=== PATIENT | male | born 1935 | race Caucasian/White ===

== ENCOUNTER 2023-07-01 13:48 | Outpatient (REF) | payer MEDICARE, SELFPAY ==
[2023-07-01 16:33] LABS: Hematocrit 33.4 % (42.0-52.0); Hemoglobin 10.3 g/dl (14.0-18.0); Mean Corpuscular HGB Conc 30.8 g/dl (31.0-36.0); Mean Corpuscular Hemoglobin 29.5 pg (27.0-33.0); Mean Corpuscular Volume 95.7 fL (80.0-98.0); Platelet Count 185 X10*3/uL (160-400); Red Blood Count 3.49 X10*6/uL (4.60-5.80); White Blood Count 6.8 X10*3/uL (4.8-10.8)
[2023-07-01 17:04] LABS: Anion Gap 12 (12-20); Blood Urea Nitrogen 54 mg/dL (9-16); Calcium 9.2 mg/dL (8.4-10.2); Carbon Dioxide 25 mmol/L (22-29); Chloride 108 mmol/L (96-108); Estimated Glomerular Filt Rate 30; Sodium 140 mmol/L (135-145)
== END 2023-07-01 13:49 | disposition home or self-care (01) ==
LOC: HO.HMGCLDS 13:48
PROVIDERS: Visit Provider Internal Medicine Hypertension Specialist
DX: N18.9 Chronic kidney disease, unspecified (principal)
CPT/HCPCS: 36415; 80051; 82310; 82565; 84520; 85027

== ENCOUNTER 2023-07-07 10:43 | Outpatient (AMB) | payer MEDICARE, SELFPAY ==
--- NOTE | 2023-07-07 10:49 | HO.NEPHOV_ITS ---
HPI HPI Comments History of Present Illness Details Edwardo is a pleasant elderly man with a history of longstanding diabetes mellitus hypertension with chronic disease. [facility] He has CKD with a baseline creatinine of around 2.2 mg/dL. He was accompanied by his family today. No specific complaints. He continues have leg edema. No shortness of breath. He is on low dose of torsemide Vital Signs 07/07/23 10:59 Height 5 ft 10 in Weight 250 lb BMI 35.9 BP 130/68 Blood Pressure Location Rt brachial Position Sitting Pulse 68 Pulse Source Pulse Oximeter Pulse Oximetry (%) 98 Physical Exam Const General: comfortable Nutritional Appearance: well nourished Orientation/consciousness: patient oriented x3 HEENT Head: No normal to inspection Mouth: moist mucous membranes Neck Neck: Yes supple and Yes no JVD Resp Auscultation: clear to auscultation bilaterally, no rales and rub present Cardio Jugular venous distension: no JVD Palpation: no palpable S3 and no palpable S4 Heart sounds: no rubs GI Palpation (GI): Soft to palpation and nontender Percussion: No Fluid wave present General: Yes no CVA tenderness Back/Spine/Pelvis Back: no CVA tenderness Skin General skin exam: no rashes or lesions noted Neuro General: patient oriented x3 Extrem General: No clubbing and Yes edema Results Reviewed Results Reviewed: Labs labs from [facility] was reviewed. Creatinine 2.1 in 2021. As of July 01 creatinine is 2.2. Hemoglobin 10.4. Assessment & Plan Assessment & Plan (1) CKD (chronic kidney disease) stage 4, GFR 15-29 ml/min: Code(s): N18.4 - Chronic kidney disease, stage 4 (severe) Plan: Advanced CKD. No signs and uremia. Goal is to slow the progression of kidney disease. Continue to avoid nephrotoxic agents including NSAIDs. He will benefit from SGLT 2 inhibitor (2) Diabetes mellitus with chronic kidney disease: Code(s): E11.22 - Type 2 diabetes mellitus with diabetic chronic kidney disease Plan: Goals maintain hemoglobin A1c less than 7%. He will benefit from weight loss. (3) Anemia due to chronic kidney disease: Code(s): N18.9 - Chronic kidney disease, unspecified; D63.1 - Anemia in chronic kidney disease Plan: No indication for Epogen yet. Will check iron stores before next visit and reassess further need for Epogen. (4) HTN (hypertension): Code(s): I10 - Essential (primary) hypertension Plan: Blood pressures are acceptable. Needs to stay on low-sodium diet. No changes were made to the antihypertensive medication today. Goal is met and blood pressures in 130/80 and Avoid hypotension. Orders: Orders IRON PROFILE 5 Months D63.1 - Anemia in chronic kidney disease, E11.22 - Type 2 diabetes mellitus with diabetic chronic kidney disease, N18.4 - Chronic kidney disease, stage 4 (severe), N18.9 - Chronic kidney disease, unspecified PTHI 5 Months D63.1 - Anemia in chronic kidney disease, E11.22 - Type 2 diabetes mellitus with diabetic chronic kidney disease, N18.4 - Chronic kidney disease, stage 4 (severe), N18.9 - Chronic kidney disease, unspecified Ferritin 5 Months D63.1 - Anemia in chronic kidney disease, E11.22 - Type 2 diabetes mellitus with diabetic chronic kidney disease, N18.4 - Chronic kidney disease, stage 4 (severe), N18.9 - Chronic kidney disease, unspecified Electrolytes 5 Months D63.1 - Anemia in chronic kidney disease, E11.22 - Type 2 diabetes mellitus with diabetic chronic kidney disease, N18.4 - Chronic kidney disease, stage 4 (severe), N18.9 - Chronic kidney disease, unspecified Blood Urea Nitrogen 5 Months D63.1 - Anemia in chronic kidney disease, E11.22 - Type 2 diabetes mellitus with diabetic chronic kidney disease, N18.4 - Chronic kidney disease, stage 4 (severe), N18.9 - Chronic kidney disease, unspecified Creatinine 5 Months D63.1 - Anemia in chronic kidney disease, E11.22 - Type 2 diabetes mellitus with diabetic chronic kidney disease, N18.4 - Chronic kidney disease, stage 4 (severe), N18.9 - Chronic kidney disease, unspecified Calcium 5 Months D63.1 - Anemia in chronic kidney disease, E11.22 - Type 2 diabetes mellitus with diabetic chronic kidney disease, N18.4 - Chronic kidney disease, stage 4 (severe), N18.9 - Chronic kidney disease, unspecified Complete Blood Count no Diff 5 Months D63.1 - Anemia in chronic kidney disease, E11.22 - Type 2 diabetes mellitus with diabetic chronic kidney disease, N18.4 - Chronic kidney disease, stage 4 (severe), N18.9 - Chronic kidney disease, unspecified Coding Level of Care Code Est Pt Level 4 (28950) Diagnoses CKD (chronic kidney disease) stage 4, GFR 15-29 ml/min N18.4 Diabetes mellitus with chronic kidney disease E11.22 Anemia due to chronic kidney disease N18.9; D63.1 HTN (hypertension) I10
[2023-07-07 10:59] VITALS: BP 130/68; PULSE 68; O2SAT 98; BMI 35.9
== END 2023-07-07 11:23 | disposition home or self-care (01) ==
PROVIDERS: Visit Provider Internal Medicine Hypertension Specialist
DX: N18.4 Chronic kidney disease, stage 4 (severe) (principal); E11.22 Type 2 diabetes mellitus with diabetic chronic kidney disease; N18.9 Chronic kidney disease, unspecified; D63.1 Anemia in chronic kidney disease; I12.9 Hypertensive chronic kidney disease with stage 1 through stage 4 chronic kidney disease, or unspecified chronic kidney disease
CPT/HCPCS: 99214

== ENCOUNTER → 2023-07-07 10:43 | Outpatient (BNVA) | payer MEDICARE, SELFPAY | PROVIDERS: Visit Provider Internal Medicine Hypertension Specialist | DX: E11.22 Type 2 diabetes mellitus with diabetic chronic kidney disease (principal); I12.9 Hypertensive chronic kidney disease with stage 1 through stage 4 chronic kidney disease, or unspecified chronic kidney disease; D63.1 Anemia in chronic kidney disease; N18.4 Chronic kidney disease, stage 4 (severe) | CPT/HCPCS: 99212 ==

== ENCOUNTER 2023-11-30 11:01 | Outpatient (REF) | payer MEDICARE, SELFPAY ==
[2023-11-30 12:24] LABS: Hematocrit 31.7 % (42.0-52.0); Hemoglobin 10.2 g/dl (14.0-18.0); Mean Corpuscular HGB Conc 32.2 g/dl (31.0-36.0); Mean Corpuscular Hemoglobin 30.1 pg (27.0-33.0); Mean Corpuscular Volume 93.5 fL (80.0-98.0); Mean Platelet Volume 10.9 fL (9.4-12.4); Platelet Count 155 X10*3/uL (160-400); Red Blood Count 3.39 X10*6/uL (4.60-5.80); White Blood Count 7.1 X10*3/uL (4.8-10.8)
[2023-11-30 14:38] LABS: Anion Gap 15 (12-20); Blood Urea Nitrogen 72 mg/dL (9-16); Carbon Dioxide 23 mmol/L (22-29); Chloride 105 mmol/L (96-108); Estimated Glomerular Filt Rate 23; Iron 57 mcg/dL (45-160); Percent Iron Saturation 19 % (15-50); Potassium 5.1 mmol/L (3.3-5.1); Sodium 138 mmol/L (135-145); Total Iron Binding Capacity 295 mcg/dL (228-428); Unsaturated Iron Binding 238 ug/dL
[2023-11-30 14:47] LABS: Ferritin 97 ng/mL (20-250)
== END 2023-11-30 11:02 | disposition home or self-care (01) ==
LOC: HO.HKASLDS 11:01
PROVIDERS: Visit Provider Internal Medicine Hypertension Specialist
DX: E11.22 Type 2 diabetes mellitus with diabetic chronic kidney disease (principal); N18.4 Chronic kidney disease, stage 4 (severe); N18.9 Chronic kidney disease, unspecified; D63.1 Anemia in chronic kidney disease
CPT/HCPCS: 36415; 80051; 82310; 82565; 82728; 83540; 84520; 85027

== ENCOUNTER 2023-12-08 10:42 | Outpatient (AMB) | payer MEDICARE, SELFPAY ==
[2023-12-08 10:48] VITALS: BP 142/62; PULSE 77; O2SAT 93; BMI 34.6
--- NOTE | 2023-12-08 10:48 | HO.NEPHOV_ITS ---
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 [facility] He has CKD with a baseline creatinine of around 2.2 mg/dL. He was accompanied by his family today. No specific complaints. He continues have leg edema. No shortness of breath. 12/08/23 Doing better Torsemide was increased to 20 mg by cardiology Creatinine is up to 2.6 PFSH Social History (Updated 12/08/23 @ 10:52 by Lucy Vuong) Patient Tobacco Use Status: Former Tobacco user Use of substances other than those prescribed or required for medical reasons: No Physical Exam Vital Signs: Last Vital Signs Pulse 77 12/08/23 10:48 BP 142/62 H 12/08/23 10:48 Pulse Ox 93 12/08/23 10:48 Oxygen Delivery Method Room Air 12/08/23 10:48 BMI result Body Mass Index 34.6 Const General: comfortable Nutritional Appearance: well nourished Orientation/consciousness: patient oriented x3 HEENT Head: No normal to inspection Mouth: moist mucous membranes Neck Neck: Yes supple and Yes no JVD Resp Auscultation: clear to auscultation bilaterally, no rales and rub present Cardio Jugular venous distension: no JVD Palpation: no palpable S3 and no palpable S4 Heart sounds: no rubs GI Palpation (GI): Soft to palpation and nontender Percussion: No Fluid wave present General: Yes no CVA tenderness Back/Spine/Pelvis Back: no CVA tenderness Skin General skin exam: no rashes or lesions noted Neuro General: patient oriented x3 Extrem General: No clubbing and Yes edema Results Reviewed Nephrology Results: Hgb 10.2 g/dl (14.0-18.0) L 11/30/23 WBC 7.1 X10*3/uL (4.8-10.8) 11/30/23 Plt Count 155 X10*3/uL (160-400) L 11/30/23 Sodium 138 mmol/L (135-145) 11/30/23 Potassium 5.1 mmol/L (3.3-5.1) 11/30/23 Chloride 105 mmol/L (96-108) 11/30/23 Carbon Dioxide 23 mmol/L (22-29) 11/30/23 BUN 72 mg/dL (9-16) H 11/30/23 Creatinine 2.69 mg/dL (0.5-1.4) H 11/30/23 Calcium 9.0 mg/dL (8.4-10.2) 11/30/23 Assessment & Plan Assessment & Plan (1) CKD (chronic kidney disease) stage 4, GFR 15-29 ml/min: Code(s): N18.4 - Chronic kidney disease, stage 4 (severe) Category: Medical Plan: Advanced CKD. No signs and uremia. Goal is to slow the progression of kidney disease. Continue to avoid nephrotoxic agents including NSAIDs. He will benefit from SGLT 2 inhibitor Superimposed ZHEN due tp high dose of diuretic Clinically appears euvolemic would decrease Torsemide from 20 mg to 10 mg daily (2) Diabetes mellitus with chronic kidney disease: Code(s): E11.22 - Type 2 diabetes mellitus with diabetic chronic kidney disease Category: Medical Plan: Goals maintain hemoglobin A1c less than 7%. He will benefit from weight loss. (3) Anemia due to chronic kidney disease: Code(s): N18.9 - Chronic kidney disease, unspecified; D63.1 - Anemia in chronic kidney disease Category: Medical Plan: No indication for Epogen yet. Will check iron stores before next visit and reassess further need for Epogen. (4) HTN (hypertension): Code(s): I10 - Essential (primary) hypertension Category: Medical Plan: Blood pressures are acceptable. Needs to stay on low-sodium diet. No changes were made to the antihypertensive medication today. Goal is met and blood pressures in 130/80 and Avoid hypotension. Orders: Orders Basic Metabolic Panel 2 Months D63.1 - Anemia in chronic kidney disease, N18.4 - Chronic kidney disease, stage 4 (severe), N18.9 - Chronic kidney disease, unspecified Complete Blood Count Auto Diff 2 Months D63.1 - Anemia in chronic kidney disease, N18.30 - Chronic kidney disease, stage 3 unspecified, N18.4 - Chronic kidney disease, stage 4 (severe), N18.9 - Chronic kidney disease, unspecified Coding Level of Care Code Est Pt Level 4 (55336) Diagnoses CKD (chronic kidney disease) stage 4, GFR 15-29 ml/min N18.4 Diabetes mellitus with chronic kidney disease E11.22 Anemia due to chronic kidney disease N18.9; D63.1 HTN (hypertension) I10
== END 2023-12-08 11:13 | disposition home or self-care (01) ==
PROVIDERS: Visit Provider Internal Medicine Hypertension Specialist
DX: E11.22 Type 2 diabetes mellitus with diabetic chronic kidney disease (principal); N18.4 Chronic kidney disease, stage 4 (severe); N18.9 Chronic kidney disease, unspecified; D63.1 Anemia in chronic kidney disease; I12.9 Hypertensive chronic kidney disease with stage 1 through stage 4 chronic kidney disease, or unspecified chronic kidney disease
CPT/HCPCS: 99214

== ENCOUNTER → 2023-12-08 10:42 | Outpatient (BNVA) | payer MEDICARE, SELFPAY | PROVIDERS: Visit Provider Internal Medicine Hypertension Specialist | DX: E11.22 Type 2 diabetes mellitus with diabetic chronic kidney disease (principal); I12.9 Hypertensive chronic kidney disease with stage 1 through stage 4 chronic kidney disease, or unspecified chronic kidney disease; N18.4 Chronic kidney disease, stage 4 (severe); D63.1 Anemia in chronic kidney disease | CPT/HCPCS: 99212 ==

== ENCOUNTER 2024-01-27 11:11 | Outpatient (REF) | payer MEDICARE, SELFPAY ==
[2024-01-27 14:28] LABS: MANUAL DIFF FLAG NO
[2024-01-27 14:53] LABS: Anion Gap 10 (12-20); Blood Urea Nitrogen 52 mg/dL (9-16); Carbon Dioxide 26 mmol/L (22-29); Chloride 105 mmol/L (96-108); Estimated Glomerular Filt Rate 27; Glucose Random 195 mg/dL (60-115); Potassium 5.1 mmol/L (3.3-5.1); Sodium 136 mmol/L (135-145)
[2024-01-27 14:57] LABS: Basophils Percent Auto 0.5 % (0-2); Eosinophils Absolute Auto 0.3 X10*3/uL (0.0-0.4); Eosinophils Percent Auto 3.8 % (0-4); Hematocrit 29.9 % (42.0-52.0); Hemoglobin 9.5 g/dl (14.0-18.0); Imm Gran Abs Auto 0.03 X10*3/uL (0.00-0.03); Imm Gran Pct Auto 0.5 % (0.0-0.4); Lymphocytes Absolute Auto 0.8 X10*3/uL (1.2-4.9); Lymphocytes Percent Auto 11.6 % (20-40); Mean Corpuscular HGB Conc 31.8 g/dl (31.0-36.0); Mean Corpuscular Hemoglobin 30.1 pg (27.0-33.0); Mean Corpuscular Volume 94.6 fL (80.0-98.0); Monocytes Absolute Auto 0.5 X10*3/uL (0.1-1.2); Monocytes Percent Auto 7.6 % (2-11); Platelet Count 158 X10*3/uL (160-400); Red Blood Count 3.16 X10*6/uL (4.60-5.80); Red Cell Distribution Width 14.1 % (11.0-16.0); White Blood Count 6.6 X10*3/uL (4.8-10.8)
== END 2024-01-27 11:12 | disposition home or self-care (01) ==
LOC: HO.HKASLDS 11:11
PROVIDERS: Visit Provider Internal Medicine Hypertension Specialist
DX: N18.30 Chronic kidney disease, stage 3 unspecified (principal); D63.1 Anemia in chronic kidney disease; N18.4 Chronic kidney disease, stage 4 (severe)
CPT/HCPCS: 36415; 80048; 85025

== ENCOUNTER 2024-01-27 11:20 | Outpatient (REF) | payer MEDICARE, SELFPAY | END 2024-01-27 11:21 | disposition home or self-care (01) | LOC: HO.HKASLDS 11:20 | PROVIDERS: Visit Provider Internal Medicine Hypertension Specialist | DX: Z13.89 Encounter for screening for other disorder (principal) ==

== ENCOUNTER 2024-02-02 10:54 | Outpatient (AMB) | payer MEDICARE, SELFPAY ==
--- NOTE | 2024-02-02 11:01 | HO.NEPHOV_ITS ---
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 [facility] He has CKD with a baseline creatinine of around 2.2 mg/dL. He was accompanied by his family today. No specific complaints. He continues have leg edema. No shortness of breath. 12/08/23 Doing better;Torsemide was increased to 20 mg by cardiology;Creatinine is up to 2.6 02/02/2024. Overall doing well today. After lowering the torsemide to 10 mg serum creatinine is decreased to 2.2. He has lost about 1 lb since last visit. [facility] Social History Patient Tobacco Use Status: Former Tobacco user Physical Exam Vital Signs: Last Vital Signs Pulse 93 02/02/24 11:02 BP 144/64 H 02/02/24 11:02 Pulse Ox 94 02/02/24 11:02 Oxygen Delivery Method Room Air 02/02/24 11:02 BMI result Body Mass Index 34.4 Const General: comfortable Nutritional Appearance: well nourished Orientation/consciousness: patient oriented x3 HEENT Head: No normal to inspection Mouth: moist mucous membranes Neck Neck: Yes supple and Yes no JVD Resp Auscultation: clear to auscultation bilaterally and no rales Cardio Jugular venous distension: no JVD Palpation: no palpable S3 and no palpable S4 Heart sounds: no rubs GI Palpation (GI): Soft to palpation and nontender Percussion: No Fluid wave present General: Yes no CVA tenderness Back/Spine/Pelvis Back: no CVA tenderness Skin General skin exam: no rashes or lesions noted Neuro General: patient oriented x3 Extrem General: No clubbing and Yes edema Results Reviewed Nephrology Results: Hgb 9.5 g/dl (14.0-18.0) L 01/27/24 WBC 6.6 X10*3/uL (4.8-10.8) 01/27/24 Plt Count 158 X10*3/uL (160-400) L 01/27/24 Sodium 136 mmol/L (135-145) 01/27/24 Potassium 5.1 mmol/L (3.3-5.1) 01/27/24 Chloride 105 mmol/L (96-108) 01/27/24 Carbon Dioxide 26 mmol/L (22-29) 01/27/24 BUN 52 mg/dL (9-16) H 01/27/24 Creatinine 2.27 mg/dL (0.5-1.4) H 01/27/24 Calcium 9.0 mg/dL (8.4-10.2) 01/27/24 Assessment & Plan Assessment & Plan (1) CKD (chronic kidney disease) stage 4, GFR 15-29 ml/min: Code(s): N18.4 - Chronic kidney disease, stage 4 (severe) Category: Medical Plan: . No signs and uremia. Goal is to slow the progression of kidney disease. Continue to avoid nephrotoxic agents including NSAIDs. He will benefit from SGLT 2 inhibitor Superimposed ZHEN due to high dose of diuretics Resolved after lowering Torsemide Creatinine is down to 2.2 Clinically appears euvolemic Keep Torsemide 10 mg daily (2) Diabetes mellitus with chronic kidney disease: Code(s): E11.22 - Type 2 diabetes mellitus with diabetic chronic kidney disease Category: Medical Plan: . Goals maintain hemoglobin A1c less than 7%. He will benefit from weight loss. (3) Anemia due to chronic kidney disease: Code(s): N18.9 - Chronic kidney disease, unspecified; D63.1 - Anemia in chronic kidney disease Category: Medical Plan: No indication for Epogen yet. Iron /TIBC are acceptable (4) HTN (hypertension): Code(s): I10 - Essential (primary) hypertension Category: Medical Plan: Blood pressures are acceptable. Needs to stay on low-sodium diet. No changes were made to the antihypertensive medication today. Goal is met and blood pressures in 130/80 Avoid hypotension. Orders: Orders Basic Metabolic Panel 3 Months D63.1 - Anemia in chronic kidney disease, N18.4 - Chronic kidney disease, stage 4 (severe), N18.9 - Chronic kidney disease, unspecified Complete Blood Count no Diff 3 Months D63.1 - Anemia in chronic kidney disease, N18.4 - Chronic kidney disease, stage 4 (severe), N18.9 - Chronic kidney disease, unspecified Scribe Plan - Not visible on output: Fax to Dr Sheryl Judge - [phone] Coding Level of Care Code Est Pt Level 4 (56011) Diagnoses CKD (chronic kidney disease) stage 4, GFR 15-29 ml/min N18.4 Diabetes mellitus with chronic kidney disease E11.22 Anemia due to chronic kidney disease N18.9; D63.1 HTN (hypertension) I10
[2024-02-02 11:02] VITALS: BP 144/64; PULSE 93; O2SAT 94; BMI 34.4
== END 2024-02-02 11:22 | disposition home or self-care (01) ==
PROVIDERS: Visit Provider Internal Medicine Hypertension Specialist
DX: I12.9 Hypertensive chronic kidney disease with stage 1 through stage 4 chronic kidney disease, or unspecified chronic kidney disease (principal); E11.22 Type 2 diabetes mellitus with diabetic chronic kidney disease; N18.4 Chronic kidney disease, stage 4 (severe); N18.9 Chronic kidney disease, unspecified; D63.1 Anemia in chronic kidney disease
CPT/HCPCS: 99214

== ENCOUNTER → 2024-02-02 10:54 | Outpatient (BNVA) | payer MEDICARE, SELFPAY | PROVIDERS: Visit Provider Internal Medicine Hypertension Specialist | DX: E11.22 Type 2 diabetes mellitus with diabetic chronic kidney disease (principal); I12.9 Hypertensive chronic kidney disease with stage 1 through stage 4 chronic kidney disease, or unspecified chronic kidney disease; N18.4 Chronic kidney disease, stage 4 (severe); D63.1 Anemia in chronic kidney disease | CPT/HCPCS: 99212 ==

== ENCOUNTER 2024-04-27 11:08 | Outpatient (REF) | payer MEDICARE, SELFPAY ==
[2024-04-27 16:22] LABS: Hematocrit 29.5 % (42.0-52.0); Hemoglobin 9.6 g/dl (14.0-18.0); Mean Corpuscular HGB Conc 32.5 g/dl (31.0-36.0); Mean Corpuscular Hemoglobin 30.8 pg (27.0-33.0); Mean Corpuscular Volume 94.6 fL (80.0-98.0); Mean Platelet Volume 10.5 fL (9.4-12.4); Platelet Count 145 X10*3/uL (160-400); Red Blood Count 3.12 X10*6/uL (4.60-5.80); Red Cell Distribution Width 14.2 % (11.0-16.0)
[2024-04-27 16:30] LABS: Anion Gap 15 (12-20); Blood Urea Nitrogen 55 mg/dL (9-16); Calcium 9.2 mg/dL (8.4-10.2); Carbon Dioxide 24 mmol/L (22-29); Chloride 106 mmol/L (96-108); Estimated Glomerular Filt Rate 23; Glucose Random 151 mg/dL (60-115); Potassium 5.9 mmol/L (3.3-5.1); Sodium 139 mmol/L (135-145)
== END 2024-04-27 11:09 | disposition home or self-care (01) ==
LOC: HO.HKASLDS 11:08
PROVIDERS: Visit Provider Internal Medicine Hypertension Specialist
DX: N18.9 Chronic kidney disease, unspecified (principal); D63.1 Anemia in chronic kidney disease; N18.4 Chronic kidney disease, stage 4 (severe)
CPT/HCPCS: 36415; 80048; 85027

== ENCOUNTER 2024-05-10 11:00 | Outpatient (AMB) | payer MEDICARE, SELFPAY ==
[2024-05-10 11:09] VITALS: BP 140/60; PULSE 81; O2SAT 93; BMI 34.6
--- NOTE | 2024-05-10 11:09 | HO.NEPHOV ---
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 Required: No Accompanied by: Spouse Allergies No Known Allergies Allergy (Mild, Verified 05/10/24 11:13) Medication List - Last Reconciled 05/10/24 by Tyler Bautista MD albuterol sulfate 90 mcg/actuation 2 puffs inhalation Q6H PRN apixaban (Eliquis) 2.5 mg PO BID aspirin (Adult Low Dose Aspirin) 81 mg PO DAILY chromium picolinate 800 mcg PO DAILY diosmin complex no.1 (Vasculera) 1 tab PO DAILY fluticasone propion-salmeterol 100-50 mcg/dose (Wixela Inhub) 1 inh inhalation Q12H glipizide 5 mg PO DAILY lisinopril 20 mg PO ONCE multivitamin 1 tab PO DAILY simvastatin (Zocor) 40 mg PO DAILY tiotropium bromide 1.25 mcg/actuation (Spiriva Respimat) 2 puffs inhalation DAILY torsemide 10 mg PO DAILY vitamin B complex (B Complex-Vitamin B12 tablet) 1 tab PO DAILY HPI Comments Details: Edwardo is a pleasant elderly man with a history of longstanding diabetes mellitus hypertension with chronic disease. [facility] He has CKD with a baseline creatinine of around 2.2 mg/dL. He was accompanied by his family today. No specific complaints. He continues have leg edema. No shortness of breath. 12/08/23 Doing better;Torsemide was increased to 20 mg by cardiology;Creatinine is up to 2.6 02/02/2024. Overall doing well today. After lowering the torsemide to 10 mg serum creatinine is decreased to 2.2. He has lost about 1 lb since last visit. 05/10/24 Doing well. K and cr are up No urinary sypmyoms [facility] Social History Patient Tobacco Use Status: Former Tobacco user Physical Exam Vital Signs: Last Vital Signs Pulse 81 05/10/24 11:09 BP 182/70 H 05/10/24 11:09 Pulse Ox 93 05/10/24 11:09 Oxygen Delivery Method Room Air 05/10/24 11:09 BMI result Body Mass Index 34.6 Results Reviewed Nephrology Results: Hgb 9.6 g/dl (14.0-18.0) L 04/27/24 WBC 6.0 X10*3/uL (4.8-10.8) 04/27/24 Plt Count 145 X10*3/uL (160-400) L 04/27/24 Sodium 139 mmol/L (135-145) 04/27/24 Potassium 5.9 mmol/L (3.3-5.1) H 04/27/24 Chloride 106 mmol/L (96-108) 04/27/24 Carbon Dioxide 24 mmol/L (22-29) 04/27/24 BUN 55 mg/dL (9-16) H 04/27/24 Creatinine 2.61 mg/dL (0.5-1.4) H 04/27/24 Calcium 9.2 mg/dL (8.4-10.2) 04/27/24 Assessment & Plan Assessment & Plan (1) CKD (chronic kidney disease) stage 4, GFR 15-29 ml/min: Code(s): N18.4 - Chronic kidney disease, stage 4 (severe) Category: Medical Plan: . No signs and uremia. Goal is to slow the progression of kidney disease. Continue to avoid nephrotoxic agents including NSAIDs. He will benefit from SGLT 2 inhibitor Superimposed ZHEN due to high dose of diuretics Resolved after lowering Torsemide Creatinine is up Clinically appears euvolemic Keep Torsemide 10 mg daily (2) Diabetes mellitus with chronic kidney disease: Code(s): E11.22 - Type 2 diabetes mellitus with diabetic chronic kidney disease Category: Medical Plan: . Goals maintain hemoglobin A1c less than 7%. He will benefit from weight loss. (3) Anemia due to chronic kidney disease: Code(s): N18.9 - Chronic kidney disease, unspecified; D63.1 - Anemia in chronic kidney disease Category: Medical Plan: No indication for Epogen yet. Iron /TIBC are acceptable (4) HTN (hypertension): Code(s): I10 - Essential (primary) hypertension Category: Medical Plan: Blood pressures are acceptable. Needs to stay on low-sodium diet. No changes were made to the antihypertensive medication today. Goal is met and blood pressures in 130/80 Avoid hypotension. (5) Hyperkalemia: Code(s): E87.5 - Hyperkalemia Category: Medical Plan: Decrease Lisinopril to 20 mg Qd from BID Low K diet Lokelma x 1 dose REcheck K in 1 week Orders: Orders Basic Metabolic Panel 1 Week E87.5 - Hyperkalemia, N18.4 - Chronic kidney disease, stage 4 (severe) Medications: New sodium zirconium cyclosilicate (Lokelma) 10 grams PO DAILY 1 ea 0RF Scribe Plan - Not visible on output: Fax to Dr Sheryl Judge - [phone] Coding Level of Care Code Est Pt Level 4 (09898) Complex EM visit Add On G2211 Diagnoses CKD (chronic kidney disease) stage 4, GFR 15-29 ml/min N18.4 Diabetes mellitus with chronic kidney disease E11.22 Anemia due to chronic kidney disease N18.9; D63.1 HTN (hypertension) I10 Hyperkalemia E87.5
== END 2024-05-10 11:35 | disposition home or self-care (01) ==
PROVIDERS: Visit Provider Internal Medicine Hypertension Specialist
DX: I12.9 Hypertensive chronic kidney disease with stage 1 through stage 4 chronic kidney disease, or unspecified chronic kidney disease (principal); E11.22 Type 2 diabetes mellitus with diabetic chronic kidney disease; N18.4 Chronic kidney disease, stage 4 (severe); N18.9 Chronic kidney disease, unspecified; D63.1 Anemia in chronic kidney disease; E87.5 Hyperkalemia
CPT/HCPCS: 99214; G2211

== ENCOUNTER → 2024-05-10 11:00 | Outpatient (BNVA) | payer MEDICARE, SELFPAY | PROVIDERS: Visit Provider Internal Medicine Hypertension Specialist | DX: E11.22 Type 2 diabetes mellitus with diabetic chronic kidney disease (principal); I12.9 Hypertensive chronic kidney disease with stage 1 through stage 4 chronic kidney disease, or unspecified chronic kidney disease; N18.4 Chronic kidney disease, stage 4 (severe); D63.1 Anemia in chronic kidney disease | CPT/HCPCS: 99212 ==

== ENCOUNTER 2024-05-31 11:32 | Outpatient (REF) | payer MEDICARE, SELFPAY ==
[2024-05-31 14:14] LABS: Anion Gap 15 (12-20); Blood Urea Nitrogen 56 mg/dL (9-16); Calcium 9.5 mg/dL (8.4-10.2); Carbon Dioxide 24 mmol/L (22-29); Chloride 108 mmol/L (96-108); Estimated Glomerular Filt Rate 26; Glucose Random 174 mg/dL (60-115); Potassium 4.8 mmol/L (3.3-5.1); Sodium 142 mmol/L (135-145)
== END 2024-05-31 11:33 | disposition home or self-care (01) ==
LOC: HO.HKASLDS 11:32
PROVIDERS: Visit Provider Internal Medicine Hypertension Specialist
DX: N18.4 Chronic kidney disease, stage 4 (severe) (principal); E87.5 Hyperkalemia
CPT/HCPCS: 36415; 80048

== ENCOUNTER 2024-06-07 10:33 | Outpatient (AMB) | payer MEDICARE, SELFPAY ==
--- NOTE | 2024-06-07 10:47 | HO.NEPHOV ---
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 Accompanied by: Spouse Allergies No Known Allergies Allergy (Mild, Verified 06/07/24 10:51) Medication List - Last Reconciled 06/07/24 by Tyler Bautista MD albuterol sulfate 90 mcg/actuation 2 puffs inhalation Q6H PRN apixaban (Eliquis) 2.5 mg PO BID aspirin (Adult Low Dose Aspirin) 81 mg PO DAILY chromium picolinate 800 mcg PO DAILY diosmin complex no.1 (Vasculera) 1 tab PO DAILY fluticasone propion-salmeterol 100-50 mcg/dose (Wixela Inhub) 1 inh inhalation Q12H glipizide 5 mg PO DAILY lisinopril 20 mg PO ONCE multivitamin 1 tab PO DAILY simvastatin (Zocor) 40 mg PO DAILY sodium zirconium cyclosilicate (Lokelma) 10 grams PO DAILY tiotropium bromide 1.25 mcg/actuation (Spiriva Respimat) 2 puffs inhalation DAILY torsemide 10 mg PO DAILY vitamin B complex (B Complex-Vitamin B12 tablet) 1 tab PO DAILY HPI Comments Details: Edwardo is a pleasant elderly man with a history of longstanding diabetes mellitus hypertension with chronic disease. [facility] He has CKD with a baseline creatinine of around 2.2 mg/dL. He was accompanied by his family today. No specific complaints. He continues have leg edema. No shortness of breath. 12/08/23 Doing better;Torsemide was increased to 20 mg by cardiology;Creatinine is up to 2.6 02/02/2024. Overall doing well today. After lowering the torsemide to 10 mg serum creatinine is decreased to 2.2. He has lost about 1 lb since last visit. 05/10/24 Doing well. K and cr are up No urinary sypmyoms 06/07/24 Tolerating lower dose of Lisniopril Cr improved On low K diet K is normal [facility] Social History Patient Tobacco Use Status: Former Tobacco user Physical Exam Vital Signs: Last Vital Signs Pulse 82 06/07/24 10:48 BP 172/60 H 06/07/24 10:48 Pulse Ox 95 06/07/24 10:48 Oxygen Delivery Method Room Air 06/07/24 10:48 BMI result Body Mass Index 34.9 Results Reviewed Nephrology Results: Hgb 9.6 g/dl (14.0-18.0) L 04/27/24 WBC 6.0 X10*3/uL (4.8-10.8) 04/27/24 Plt Count 145 X10*3/uL (160-400) L 04/27/24 Sodium 142 mmol/L (135-145) 05/31/24 Potassium 4.8 mmol/L (3.3-5.1) 05/31/24 Chloride 108 mmol/L (96-108) 05/31/24 Carbon Dioxide 24 mmol/L (22-29) 05/31/24 BUN 56 mg/dL (9-16) H 05/31/24 Creatinine 2.34 mg/dL (0.5-1.4) H 05/31/24 Calcium 9.5 mg/dL (8.4-10.2) 05/31/24 Assessment & Plan Assessment & Plan (1) CKD (chronic kidney disease) stage 4, GFR 15-29 ml/min: Code(s): N18.4 - Chronic kidney disease, stage 4 (severe) Category: Medical Plan: . No signs and uremia. Goal is to slow the progression of kidney disease. Continue to avoid nephrotoxic agents including NSAIDs. He will benefit from SGLT 2 inhibitor Superimposed ZHEN Creatinine was up and improved after lowering Lisinopril from 20mg to 10 mg Clinically appears euvolemic Keep Torsemide 10 mg daily (2) Diabetes mellitus with chronic kidney disease: Code(s): E11.22 - Type 2 diabetes mellitus with diabetic chronic kidney disease Category: Medical Plan: . Goals maintain hemoglobin A1c less than 7%. He will benefit from weight loss. (3) Anemia due to chronic kidney disease: Code(s): N18.9 - Chronic kidney disease, unspecified; D63.1 - Anemia in chronic kidney disease Category: Medical Plan: No indication for Epogen yet. Iron /TIBC are acceptable (4) HTN (hypertension): Code(s): I10 - Essential (primary) hypertension Category: Medical Plan: Blood pressures are acceptable. Needs to stay on low-sodium diet. No changes were made to the antihypertensive medication today. Goal is met and blood pressures in 130/80 Avoid hypotension. (5) Hyperkalemia: Code(s): E87.5 - Hyperkalemia Category: Medical Plan: Keep Lisinopril 20 mg Qd Low K diet Orders: Orders Basic Metabolic Panel 3 Months D63.1 - Anemia in chronic kidney disease, N18.4 - Chronic kidney disease, stage 4 (severe), N18.9 - Chronic kidney disease, unspecified Complete Blood Count Auto Diff 3 Months D63.1 - Anemia in chronic kidney disease, N18.4 - Chronic kidney disease, stage 4 (severe), N18.9 - Chronic kidney disease, unspecified Parathyroid Hormone Related Pr 3 Months D63.1 - Anemia in chronic kidney disease, N18.4 - Chronic kidney disease, stage 4 (severe), N18.9 - Chronic kidney disease, unspecified IRON PROFILE 3 Months D63.1 - Anemia in chronic kidney disease, N18.4 - Chronic kidney disease, stage 4 (severe), N18.9 - Chronic kidney disease, unspecified Ferritin 3 Months D63.1 - Anemia in chronic kidney disease, N18.4 - Chronic kidney disease, stage 4 (severe), N18.9 - Chronic kidney disease, unspecified Medications: Discontinued sodium zirconium cyclosilicate (Lokelma) Discontinued Reason: Patient no longer taking 10 grams PO DAILY 1 ea 0RF Scribe Plan - Not visible on output: Fax to Dr Sheryl Judge - [phone] Coding Level of Care Code Est Pt Level 4 (97414) Diagnoses CKD (chronic kidney disease) stage 4, GFR 15-29 ml/min N18.4 Diabetes mellitus with chronic kidney disease E11.22 Anemia due to chronic kidney disease N18.9; D63.1 HTN (hypertension) I10 Hyperkalemia E87.5
[2024-06-07 10:48] VITALS: BP 172/60; PULSE 82; O2SAT 95; BMI 34.9
[2024-06-07 11:09] VITALS: BP 142/60
== END 2024-06-07 11:17 | disposition home or self-care (01) ==
PROVIDERS: Visit Provider Internal Medicine Hypertension Specialist
DX: I12.9 Hypertensive chronic kidney disease with stage 1 through stage 4 chronic kidney disease, or unspecified chronic kidney disease (principal); E11.22 Type 2 diabetes mellitus with diabetic chronic kidney disease; N18.4 Chronic kidney disease, stage 4 (severe); N18.9 Chronic kidney disease, unspecified; D63.1 Anemia in chronic kidney disease; E87.5 Hyperkalemia
CPT/HCPCS: 99214

== ENCOUNTER → 2024-06-07 10:33 | Outpatient (BNVA) | payer MEDICARE, SELFPAY | PROVIDERS: Visit Provider Internal Medicine Hypertension Specialist | DX: E11.22 Type 2 diabetes mellitus with diabetic chronic kidney disease (principal); I12.9 Hypertensive chronic kidney disease with stage 1 through stage 4 chronic kidney disease, or unspecified chronic kidney disease; N18.4 Chronic kidney disease, stage 4 (severe); D63.1 Anemia in chronic kidney disease; E87.5 Hyperkalemia | CPT/HCPCS: 99212 ==

== ENCOUNTER 2024-09-05 14:35 | Outpatient (REF) | payer MEDICARE, SELFPAY | END 2024-09-05 14:36 | disposition home or self-care (01) | LOC: HO.HKASLDS 14:35 | PROVIDERS: Visit Provider Internal Medicine Hypertension Specialist | DX: Z13.89 Encounter for screening for other disorder (principal) ==

== ENCOUNTER 2024-09-07 11:53 | Outpatient (REF) | payer MEDICARE, SELFPAY ==
[2024-09-07 12:31] LABS: MANUAL DIFF FLAG NO
[2024-09-07 13:57] LABS: Basophils Percent Auto 0.4 % (0-2); Eosinophils Absolute Auto 0.2 X10*3/uL (0.0-0.4); Eosinophils Percent Auto 2.4 % (0-4); Hematocrit 32.4 % (42.0-52.0); Hemoglobin 10.3 g/dl (14.0-18.0); Imm Gran Abs Auto 0.04 X10*3/uL (0.00-0.03); Imm Gran Pct Auto 0.5 % (0.0-0.4); Lymphocytes Absolute Auto 0.9 X10*3/uL (1.2-4.9); Lymphocytes Percent Auto 11.3 % (20-40); Mean Corpuscular HGB Conc 31.8 g/dl (31.0-36.0); Mean Corpuscular Hemoglobin 30.1 pg (27.0-33.0); Mean Corpuscular Volume 94.7 fL (80.0-98.0); Mean Platelet Volume 10.8 fL (9.4-12.4); Monocytes Absolute Auto 0.6 X10*3/uL (0.1-1.2); Monocytes Percent Auto 7.9 % (2-11); Neutrophils Absolute Auto 6.3 x10*3/uL (2.0-8.3); Neutrophils Percent Auto 77.5 % (45-73); Platelet Count 186 X10*3/uL (160-400); Red Blood Count 3.42 X10*6/uL (4.60-5.80); White Blood Count 8.1 X10*3/uL (4.8-10.8)
[2024-09-07 14:28] LABS: Anion Gap 14 (12-20); Blood Urea Nitrogen 50 mg/dL (9-16); Calcium 9.5 mg/dL (8.4-10.2); Carbon Dioxide 25 mmol/L (22-29); Chloride 107 mmol/L (96-108); Estimated Glomerular Filt Rate 27; Glucose Random 182 mg/dL (60-115); Iron 63 mcg/dL (45-160); Percent Iron Saturation 20 % (15-50); Potassium 5.4 mmol/L (3.3-5.1); Sodium 141 mmol/L (135-145); Total Iron Binding Capacity 313 mcg/dL (228-428); Unsaturated Iron Binding 250 ug/dL
[2024-09-07 14:42] LABS: Ferritin 103 ng/mL (20-250)
[2024-09-13 15:53] LABS: Parathyroid Hormone Related Pr 23 pg/mL (11-20)
== END 2024-09-07 11:54 | disposition home or self-care (01) ==
LOC: HO.LAB 11:53
PROVIDERS: PCP Internal Medicine; Visit Provider Internal Medicine Hypertension Specialist
DX: N18.9 Chronic kidney disease, unspecified (principal); D63.1 Anemia in chronic kidney disease; N18.4 Chronic kidney disease, stage 4 (severe)
CPT/HCPCS: 36415; 80048; 82728; 83519; 83540; 85025

== ENCOUNTER 2024-09-13 10:58 | Outpatient (AMB) | payer MEDICARE, SELFPAY ==
[2024-09-13 11:03] VITALS: BP 130/60; PULSE 84; O2SAT 95; BMI 33.7
--- NOTE | 2024-09-13 11:03 | HO.NEPHOV ---
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 Accompanied by: Spouse Allergies No Known Allergies Allergy (Mild, Verified 09/13/24 11:07) Medication List - Last Reconciled 09/13/24 by Tyler Bautista MD albuterol sulfate 90 mcg/actuation 2 puffs inhalation Q6H PRN apixaban (Eliquis) 2.5 mg PO BID aspirin (Adult Low Dose Aspirin) 81 mg PO DAILY chromium picolinate 800 mcg PO DAILY diosmin complex no.1 (Vasculera) 1 tab PO DAILY fluticasone propion-salmeterol 100-50 mcg/dose (Wixela Inhub) 1 inh inhalation Q12H glipizide 5 mg PO DAILY lisinopril 20 mg PO ONCE multivitamin 1 tab PO DAILY simvastatin (Zocor) 40 mg PO DAILY tiotropium bromide 1.25 mcg/actuation (Spiriva Respimat) 2 puffs inhalation DAILY torsemide 10 mg PO DAILY vitamin B complex (B Complex-Vitamin B12 tablet) 1 tab PO DAILY HPI Comments Details: Edwardo is a pleasant elderly man with a history of longstanding diabetes mellitus hypertension with chronic disease. [facility] He has CKD with a baseline creatinine of around 2.2 mg/dL. He was accompanied by his family today. No specific complaints. He continues have leg edema. No shortness of breath. 12/08/23 Doing better;Torsemide was increased to 20 mg by cardiology;Creatinine is up to 2.6 02/02/2024. Overall doing well today. ; After lowering the torsemide to 10 mg serum creatinine is decreased to 2.2. ; He has lost about 1 lb since last visit. 05/10/24 Doing well. K and cr are up; No urinary sypmyoms 06/07/24 Tolerating lower dose of Lisniopril;;Cr improved;;On low K diet; K is normal 09/13/24 Still has dyspnea on exertion. Has lost about 5 lbs PFSH Social History Patient Tobacco Use Status: Former Tobacco user Physical Exam Vital Signs: BMI result Body Mass Index 33.7 Const General: comfortable Nutritional Appearance: well nourished Orientation/consciousness: patient oriented x3 HEENT Head: No normal to inspection Mouth: moist mucous membranes Neck Neck: Yes supple and Yes no JVD Resp Auscultation: clear to auscultation bilaterally and no rales Cardio Jugular venous distension: no JVD Palpation: no palpable S3 and no palpable S4 Heart sounds: no rubs GI Palpation (GI): Soft to palpation and nontender Percussion: No Fluid wave present General: Yes no CVA tenderness Back/Spine/Pelvis Back: no CVA tenderness Skin General skin exam: no rashes or lesions noted Neuro General: patient oriented x3 Extrem General: No clubbing and Yes edema Results Reviewed Nephrology Results: Hgb 10.3 g/dl (14.0-18.0) L 09/07/24 WBC 8.1 X10*3/uL (4.8-10.8) 09/07/24 Plt Count 186 X10*3/uL (160-400) 09/07/24 Sodium 141 mmol/L (135-145) 09/07/24 Potassium 5.4 mmol/L (3.3-5.1) H 09/07/24 Chloride 107 mmol/L (96-108) 09/07/24 Carbon Dioxide 25 mmol/L (22-29) 09/07/24 BUN 50 mg/dL (9-16) H 09/07/24 Creatinine 2.32 mg/dL (0.5-1.4) H 09/07/24 Calcium 9.5 mg/dL (8.4-10.2) 09/07/24 Assessment & Plan Assessment & Plan (1) CKD (chronic kidney disease) stage 4, GFR 15-29 ml/min: Code(s): N18.4 - Chronic kidney disease, stage 4 (severe) Category: Medical Plan: . No signs and uremia. Goal is to slow the progression of kidney disease. Continue to avoid nephrotoxic agents including NSAIDs. He will benefit from SGLT 2 inhibitor Superimposed ZHEN Creatinine was up and improved after lowering Lisinopril from 20mg to 10 mg Clinically appears euvolemic Keep Torsemide 10 mg daily (2) Diabetes mellitus with chronic kidney disease: Code(s): E11.22 - Type 2 diabetes mellitus with diabetic chronic kidney disease Category: Medical Plan: . Goals maintain hemoglobin A1c less than 7%. He will benefit from weight loss. (3) Anemia due to chronic kidney disease: Code(s): N18.9 - Chronic kidney disease, unspecified; D63.1 - Anemia in chronic kidney disease Category: Medical Plan: No indication for Epogen yet. Iron /TIBC are acceptable (4) HTN (hypertension): Code(s): I10 - Essential (primary) hypertension Category: Medical Plan: Blood pressures are acceptable. Needs to stay on low-sodium diet. No changes were made to the antihypertensive medication today. Goal is met and blood pressures in 130/80 Avoid hypotension. (5) Hyperkalemia: Code(s): E87.5 - Hyperkalemia Category: Medical Plan: Keep Lisinopril 20 mg Qd Low K diet Add Lokelma 5 gm PO twice a week Orders: Orders Basic Metabolic Panel 3 Months E87.5 - Hyperkalemia, N18.4 - Chronic kidney disease, stage 4 (severe) Complete Blood Count no Diff 3 Months E87.5 - Hyperkalemia, N18.4 - Chronic kidney disease, stage 4 (severe) Medications: New sodium zirconium cyclosilicate (Lokelma) 5 grams PO .twice a week 30 ea 1RF hyperkalemia Scribe Plan - Not visible on output: Fax to Dr Sheryl Judge - [phone] Coding Level of Care Code Est Pt Level 4 (94650) Diagnoses CKD (chronic kidney disease) stage 4, GFR 15-29 ml/min N18.4 Diabetes mellitus with chronic kidney disease E11.22 Anemia due to chronic kidney disease N18.9; D63.1 HTN (hypertension) I10 Hyperkalemia E87.5
--- OUTSIDE RECORDS SUMMARY | 2024-09-13 13:16 | XMS_ITS | Clinical Summary ---
Author Organization [address] [facility] Address [address] [place] [address] Phone Care Team Providers Care Device Sales Consultant Name Role Phone Turner Booker MD Primary Care Provider [phone] Allergies No known active allergies Medications Medication Sig Dispensed Refills Start Date End Date Status apixaban (ELIQUIS) 2.5 mg tablet Take 1 tablet (2.5 mg total) by mouth 2 (two) times a day. 180 tablet 1 06/21/2024 Active torsemide (DEMADEX) 10 mg tablet Take 1 Tablet by mouth daily. Active dietary supplement capsule Take 630 mg by mouth daily. Active tiotropium (SPIRIVA RESPIMAT) 2.5 mcg/actuation inhalation spray INHALE 2 PUFFS BY MOUTH ONCE DAILY FOR BRONCHOSPASM PREVENTION WITH COPD 06/13/2024 Active albuterol HFA (PROAIR HFA ; PROVENTIL HFA ; VENTOLIN HFA) 90 mcg/actuation inhaler Inhale 2 Puffs into the lungs every 4 hours as needed for Cough or Wheezing. 03/24/2021 Active lisinopriL (PRINIVIL,ZESTRI L) 20 mg tablet Take 20 mg by mouth 2 times daily. Active alpha lipoic acid 200 mg capsule Take 1 Cap by mouth daily. Active flaxseed oiL oil Take 1,200 mg by mouth daily. Active multivit with minerals/lutein (MULTIVITAMIN 50 PLUS ORAL) TAKE 1 TABLET BY MOUTH ONCE DAILY FOR VITAMIN SUPPLEMENTATION 04/27/2024 Active aspirin 81 mg EC tablet Take 1 Tab by mouth daily. Active glipiZIDE (GLUCOTROL XL) 2.5 mg 24 hr tablet Take 2 Tablets by mouth daily. Active simvastatin (ZOCOR) 40 mg tablet Take 40 mg by mouth at bedtime. Active CHROMIUM PICOLINATE ORAL Take 800 mg by mouth. Active Active Problems Problem Noted Date Diagnosed Date Atrial fibrillation 12/19/2021 Overview (07/12/2024): Last Assessment & Plan: Heart rate controlled with no need for rate control medication. On reduced dose Eliquis. Assessment & Plan (09/11/2024 4:55 PM EST): Heart rates in normal range without requirement of rate control medications. He is asymptomatic. Will continue monitor. Atrial flutter 08/24/2020 Overview (07/12/2024): Dose adjusted apixaban Normal LVEF on echo 05/2020 Last Assessment & Plan: The patient's atrial fibrillation rate is well controlled. He is not on any rate lowering medications. He is on dose adjusted apixaban. Continue his current treatment plan. His breathlessness is likely multifactorial given his atrial fibrillation, diastolic dysfunction, obesity, and deconditioning as well as his newly diagnosed COPD. Congestive heart failure 08/24/2020 Overview (07/12/2024): Last Assessment & Plan: With preserved EF. Stable. On low-dose torsemide. Cardiac PYP scan negative. Assessment & Plan (09/11/2024 4:55 PM EST): Appears euvolemic. Continue low-dose torsemide. Coronary artery disease invo lving coronary bypass graft of false pass heart without angina pectoris 08/24/2020 Overview (07/12/2024): CAD s/p 3V CABG in 2009 with GRIMES to the LAD, SVG to the OM and SVG to the PDA. He does not recall his anginal symptom, but he did have an abnormal stress test prompting cath revealing his 3V CAD and subsequent CABG. No ischemia noted on pharmacologic nuclear stress test from December 2020 Last Assessment & Plan: No angina symptoms. Continue current regimen. Assessment & Plan (09/11/2024 4:55 PM EST): Coronary artery disease has been stable. He had no angina symptoms. He has been on Eliquis for atrial fibrillation. Due to nosebleed, aspirin can be held for now. Will continue simvastatin at current dose. Orders: ECG 12 lead Essential hypertension 08/24/2020 Overview (07/12/2024): Last Assessment & Plan: Blood pressure well controlled with adjustments made by his PCP team. Continue current treatment plan with diuretic, ROSAILA inhibitor. Weight loss and increased exercise will also help his blood pressure. Mixed hyperlipidemia 01/24/2018 Overview (07/12/2024): Last Assessment & Plan: Well controlled lipid profile. Continue statin at current dose. Tendinitis of shoulder 01/24/2018 Overview (07/12/2024): calcifying Type 2 diabetes mellitus with cataract 8 Diabetic cataract 01/24/2018 DRAKE on CPAP 01/11/2018 Encounters Date Type Department Care Team Description 09/11/2024 2:00 PM EST Office Visit [facility] Cardiology [facility] [address] [facility] [address] [place] [address] Ana Xavier MD Coronary artery disease involving coronary bypass graft of false pass heart without angina pectoris (Primary Dx); Persistent atrial fibrillation (CMS/HCC); Chronic diastolic congestive heart failure (CMS/HCC) 06/21/2024 Telephone [facility] Cardiology [facility] [address] [facility] [address] [place] [address] Ana Xavier MD Med Refill (Eliquis ) from Last 3 Months Surgical History Surgery Date Site/Laterality Comments CORONARY ARTERY BYPASS GRAFT PROCEDURE: HISTORICAL CABG CATARACT EXTRACTION PROCEDURE: HISTORICAL CATARACT REMOVAL KNEE SURGERY PROCEDURE: HISTORICAL KNEE SURGERY; COMMENT: arthroplasty OTHER SURGICAL HISTORY PROCEDURE: RI ANES HRT PERICARDIAL SAC& GRT VESLS W/O 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 OXT OTHER SURGICAL HISTORY PROCEDURE: RI ANESTH OPEN/SURG ARTHRS TOTAL KNEE ARTHROPLASTY; COMMENT: 2 surgeries Medical History Medical History Date Comments DRAKE on CPAP 01/11/2018 DX:DRAKE on CPAP History of anemia 01/24/2018 DX:History of anemia Tachycardia 01/24/2018 DX:Tachycardia; COMMENT: 01/2017 Metoprolol Tendinitis of shoulder 01/24/2018 DX:Tendin itis of shoulder; COMMENT: calcifying History of varicose veins 01/24/2018 DX:His tory of varicose veins Type 2 diabetes mellitus wit h cataract ([facility]) 01/24/2018 DX:Type 2 diabetes mellitus with cataract ([facility]) Hyperlipidemia 01/24/2018 DX:Hyperlipidemi a; COMMENT: CABG Diabetic cataract ([facility]) 01/24/2018 DX:D iabetic cataract ([facility]) Heart disease DX:Heart disease Diabetes ([facility]) DX:Diabetes ( [facility]) Hypertension DX:Hypertension Anemia DX:Anemia History of joint problems DX:His tory of joint problems Family History Medical History Relation Name Comments Stroke Brother Other: heart disease Father Stroke Father Diabetes Mother Asthma Sister Hypertension Neg Hx Relation Name Status Comments Brother Father Mother Sister Social History Tobacco Use Types Packs/Day Years Used Date Smoking Tobacco: Former Cigarettes Q uit: 08/16/1970 Smokeless Tobacco: Never Alcohol Use Standard Drinks/Week Comments Yes 1 (1 standard drink = 0.6 oz pur e alcohol) Sex and Gender Information Value Date Recorded Sex Assigned at Not on file Gender Identity Not on file Sexual Orientation Not on file Job Start Date Occupation Industry Not on file Not on file Not on file Obstetrics History Last Filed Vital Signs Vital Sign Reading Time Taken Comments Blood Pressure 138/74 09/11/2024 2:13 PM EST Pulse 66 09/11/2024 2:13 PM EST Temperature - - Respiratory Rate - - Oxygen Saturation 94% 09/11/2024 2:13 PM EST Inhaled Oxygen Concentration - - Weight 107 kg (236 lb) 09/11/2024 2:13 PM EST Height 177.8 cm (5' 10 ) 09/11/2024 2:13 PM EST Body Mass Index 33.86 09/11/2024 2:13 PM EST Plan of Treatment Upcoming Encounters Date Type Department Care Team (Late st Contact Info) Description 03/08/2025 1:00 PM EDT Office Visit [facility] [address] [facility] [address] [place] [address] Ana Xavier MD [address] [facility] [address] [place] [address] Health Maintenance Due Date Last Done Comments Diabetes: Annual Foot Exam 1945 Diabetes: Annual Retina Eye Exam 1945 Pneumococcal Vaccine: 65+ Years (2 of 2 - PPSV23 or PCV20) 02/14/2015 12/20/2014, 07/16/2011, 08/23/2001 Depression Screening 07/25/2022 Falls Risk Assessment 07/25/2022 Social Influencers of Health Screening 07/25/2022 Diabetes: Blood Sugar Control Test (HGBA1C) 08/01/2022 Medicare Annual Wellness Visit 05/08/2023 05/08/2022 COVID-19 Vaccine ( season) 2024 07/20/2023, 08/05/2021, 11/12/2020, Additional history exists Influenza Vaccine (#1) 2024 , 05/17/2023, 06/30/2022, Additional history exists DTaP,Tdap,and Td Vaccines (3 - Td or Tdap) 12/20/2024 12/20/2014, 12/20/2014 Hypertension/CHF/CAD Annual BMP Blood Test 02/09/2025 02/10/2024, 02/10/2024 Cholesterol Screening (Lipid Panel) 02/09/2029 02/10/2024, 02/10/2024 Zoster Vaccines Completed 11/03/2021, 08/17, 06/02/2012 RSV Immunization Patients 60+ Years Old Completed 05/31/2023 HIB Vaccines Aged Out No longer eligi ble based on patient's age to complete this topic HPV Vaccines Aged Out No longer eligi ble based on patient's age to complete this topic Hepatitis A Vaccines Aged Out No long er eligible based on patient's age to complete this topic Hepatitis B Vaccines Aged Out No long er eligible based on patient's age to complete this topic IPV Vaccines Aged Out No longer eligi ble based on patient's age to complete this topic MMR Vaccines Aged Out No longer eligi ble based on patient's age to complete this topic Meningococcal ACWY Vaccine Aged Out N o longer eligible based on patient's age to complete this topic RSV Immunization Patients Under 20 months Aged Out No longer eligible based on patient's age to complete this topic Varicella Vaccines Aged Out No longer eligible based on patient's age to complete this topic Procedures Procedure Name Priority Date/Time Associated Diagnosis Comments ECG 12-LEAD Routine 09/11/2024 2:24 PM EST Coronary artery disease involving coronary bypass graft of false pass heart without angina pectoris ANNUAL BMP BLOOD TEST Routine 02/10/2024 LIPID PANEL Routine 02/10/2024 from Last 3 Months or Most Recently Relevant to Health Maintenance Results * ECG 12 lead (09/11/2024 2:24 PM EST) Pathologist [facility] Ventricular Rate ECG 66 BPM GEMUSE Atrial Rate 66 BPM GEMUSE QRS Duration 90 ms GEMUSE Q-T Interval 418 ms GEMUSE QTc 438 ms GEMUSE R [place] 121 degrees GEMUSE T [place] -38 degrees GEMUSE ECG Interpretation Atrial fibrillation Left posterior fascicular block Nonspecific ST and T wave abnormality Abnormal ECG When compared with ECG of 03-APR-2020 19:46, Left posterior fascicular block is now Present T wave inversion now evident in Inferior leads Confirmed by Isreal XAVIER, ANA ([id number]) on 09/11/2024 2:46:46 PM GEMUSE 09/11/2024 2:24 PM EST 09/11/2024 2:46 PM EST Ana Xavier MD ECG ORDERABLES GEMUSE * Annual BMP Blood Test (02/10/2024) Pathologist [facility] Annual BMP Blood Test Abstracted Historical Provider [facility] E * Lipid panel (02/10/2024) [facility] LDL/HDL Ratio 2 0 - 4 Triglycerides 63 0 - 150 mg/dL Cholesterol 121 0 - 200 mg/dL HDL 61 40 mg/dL LDL Cholesterol 48 0 - 100 mg/dL Blood Venous blood specimen / Unknown Historical Provider LAB BLOOD ORDERAB LES from Last 3 Months or Most Recently Relevant to Health Maintenance Care Teams Device Sales Consultant Relationship Specialty Start Date End Date Turner Booker MD [address] [place] [id number] PCP - General Internal Medicine 09/11/24
--- OUTSIDE RECORDS SUMMARY | 2024-09-13 13:16 | XMS_ITS | Encounter Summary ---
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 He is asymptomatic. Will continue monitor. * Chayo Xavier MD - 09/11/2024 2:00 PM ESTAssociated Problem(s): Congestive heart failure (CMS/HCC) Appears euvolemic. Continue low-dose torsemide. * Chayo Xavier MD - 09/11/2024 2:00 PM ESTAssociated Problem(s): Coronary artery disease involving coronary bypass graft of tlingit & ha[place] heart without angina pectoris Coronary artery disease has been stable. He had no angina symptoms. He has been on Eliquis for atrial fibrillation. Due to nosebleed, aspirin can be held for now. Will continue simvastatin at currentdose. Orders: ECG 12 lead * Chayo Xavier MD - 09/11/2024 2:00 PM EST Images from the original note were not included. 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 He was found to have aflutter in 2019, started on dose-adjusted apixaban due to elevated creatinine. Updated echo in 06/2020 showed normal LVEF 55-60%, ascending aorta 4.1cm. Last ROCT in July 2022 showed average heart rate 67 bpm with no significant tachybradycardia phenomena. He does not require rate limiting medication. He is here for a routine follow-up. Overall, his cardiac status has been stable. He denies chest discomfort or lower extremity edema. Shortness of breath has improved. He has lost 5 pounds since lastoffice visit. The most recent creatinine level from last week was 2.32. He reported nosebleed a couple of times recently and has not had recurrent bleed since starting ointment. Cardiac PYP scan was negative. ROS: All pertinent review of systems as stated in HPI otherwise reviewed and are negative. PAST MEDICAL HISTORY: Patient Active Problem List Diagnosis Date Noted Atrial fibrillation ([facility]) 12/19/2021 Atrial flutter ([facility]) 08/24/2020 Congestive heart failure ([facility]) 08/24/2020 Coronary artery disease involving coronary bypass graft of tlingit & ha[place] heart without angina pectoris 08/24/2020 Essential hypertension 08/24/2020 Mixed hyperlipidemia 01/24/2018 Tendinitis of shoulder 01/24/2018 Type 2 diabetes mellitus with cataract ([facility]) 01/24/2018 Diabetic cataract ([facility]) 01/24/2018 DRAKE on CPAP 01/11/2018 ACTIVE MEDICATIONS: Outpatient Medications Marked as Taking for the 09/11/24 encounter (Office Visit) with Chayo Xavier MD Medication Sig Dispense Refill albuterol HFA (PROAIR HFA ; PROVENTIL HFA ; VENTOLIN HFA) 90 mcg/actuation inhaler Inhale 2 Puffs into the lungs every 4 hours as needed for Cough or Wheezing. alpha lipoic acid 200 mg capsule Take 1 Cap by mouth daily. apixaban (ELIQUIS) 2.5 mg tablet Take 1 tablet (2.5 mg total) by mouth 2 (two) times a day. 180 tablet 1 aspirin 81 mg EC tablet Take 1 Tab by mouth daily. CHROMIUM PICOLINATE ORAL Take 800 mg by mouth. dietary supplement capsule Take 630 mg by mouth daily. flaxseed oiL oil Take 1,200 mg by mouth daily. glipiZIDE (GLUCOTROL XL) 2.5 mg 24 hr tablet Take 2 Tablets by mouth daily. lisinopriL (PRINIVIL,ZESTRIL) 20 mg tablet Take 20 mg by mouth 2 times daily. multivit with minerals/lutein (MULTIVITAMIN 50 PLUS ORAL) TAKE 1 TABLET BY MOUTH ONCE DAILY FOR VITAMIN SUPPLEMENTATION simvastatin (ZOCOR) 40 mg tablet Take 40 mg by mouth at bedtime. tiotropium (SPIRIVA RESPIMAT) 2.5 mcg/actuation inhalation spray INHALE 2 PUFFS BY MOUTH ONCE DAILYFOR BRONCHOSPASM PREVENTION WITH COPD torsemide (DEMADEX) 10 mg tablet Take 1 Tablet by mouth daily. ALLERGIES: No Known Allergies PHYSICAL EXAM: Vitals: 09/11/24 1413 BP: 138/74 BP Location: Left arm Patient Position: Sitting BP Cuff Size: Adult Pulse: 66 SpO2: 94% Weight: 107 kg (236 lb) Height: 1.778 m (70 ) Physical Exam APPEARANCE: Alert and in no acute distress. Obese EYES: PERRLA, conjunctiva and sclera normal. NECK: Neck supple, thyroid symmetric and of normal size HEART: Irregularly irregular with normal S1 and S2, mild systolic murmur at right upper sternal border, no gallops, no JVD appreciated LUNG: clear to auscultation in all schumacher ABDOMEN: Bowel sounds normoactive, soft, non-tender, without organomegaly or palpable masses EXTREMITIES: Extremities warm and well perfused without clubbing, cyanosis, or edema NEURO: Awake, alert and oriented SKIN: Skin color, texture, turgor normal. No rashes or lesions. MUSCULOSKELETAL: Gait normal TESTING: Lab Results Component Value Date CHOL 121 02/10/2024 LDL 48 02/10/2024 HDL 61 02/10/2024 TRIG 63 02/10/2024 EKG: IMPRESSION: 1. Coronary artery disease involving coronary bypass graft of tling[place] & ha[place] heart without angina pectoris 2. Persistent atrial fibrillation (CMS/HCC) 3. Chronic diastolic congestive heart failure (CMS/HCC) Assessment & Plan Coronary artery disease involving coronary bypass graft of tling[place] & ha[place] heart without angina pectoris Coronary artery disease has been stable. He had no angina symptoms. He has been on Eliquis for atrial fibrillation. Due to nosebleed, aspirin can be held for now. Will continue simvastatin at currentdose. Orders: ECG 12 lead Persistent atrial fibrillation (CMS/HCC) Heart rates in normal range without requirement of rate control medications. He is asymptomatic. Will continue monitor. Chronic diastolic congestive heart failure (CMS/HCC) Appears euvolemic. Continue low-dose torsemide. The [facility] team will continue to co-manage this patient following the plan of care as established by my initial visit and as per AHA guidelines for ongoing management and surveillance of CAD, A-fib, heart failure . This will include medication titration, initiation of appropriate medications and further titration, and diagnostic studies to manage this disease process. Thank you for allowing us to participate in the care of this patient. The patient will follow up with Cardiology 6 months CC: @PCP documented in this encounter Plan of Treatment Upcoming Encounters Date Type Department Care Team (Late st Contact Info) Description 03/08/2025 1:00 PM EDT Office Visit [facility] - [address] [place] [address] Chayo Xavier MD [address] [place] [address] documented as of this encounter Procedures Procedure Name Priority Date/Time Associated Diagnosis Comments ECG 12-LEAD Routine 09/11/2024 2:24 PM EST Coronary artery disease involving coronary bypass graft of tling[place] & ha[place] heart without angina pectoris documented in this encounter Results * ECG 12 lead (09/11/2024 2:24 PM EST) Ventricular Rate ECG 66 BPM GEMUSE Atrial Rate 66 BPM GEMUSE QRS Duration 90 ms GEMUSE Q-T Interval 418 ms GEMUSE QTc 438 ms GEMUSE R [place] 121 degrees GEMUSE T [place] -38 degrees GEMUSE ECG Interpretation Atrial fibrillation Left posterior fascicular block Nonspecific ST and T wave abnormality Abnormal ECG When compared with ECG of 03-APR-2020 19:46, Left posterior fascicular block is now Present T wave inversion now evident in Inferior leads Confirmed by Isreal XAVIER YUFENG ([id number]) on 09/11/2024 2:46:46 PM GEMUSE 09/11/2024 2:24 PM EST 09/11/2024 2:46 PM EST Chayo Xavier MD ECG ORDERABLES GEMUSE documented in this encounter Visit Diagnoses Diagnosis Coronary artery disease involving coronary bypass graft of tlingit & ha[place] heart without angina pectoris- Primary Persistent atrial fibrillation (CMS/HCC) Atrial fibrillation Chronic diastolic congestive heart failure (CMS/HCC) documented in this encounter Historical Medications * This list may reflect changes made after this encounter. Medication Sig Dispensed Refills Start Date End Date CHROMIUM PICOLINATE ORAL Take 800 mg by mouth. added in this encounter Care Teams Ticket Taker Ferryboat Relationship Specialty Start Date End Date Turner Booker MD [address] [place] [address] PCP - General Internal Medicine 09/11/24 documented as of this encounter
--- OUTSIDE RECORDS SUMMARY | 2024-09-13 13:16 | XMS_ITS | Patient Health Record ---
Author Organization [facility] Address [address] [place] [address] Care Team Providers Care Lump Room Supervisor Name Role Phone Turner Booker Primary Care Provider Cathy Lewis Unavailable [phone] Nick Pickens Unavailable [phone] Allergies No Known Allergies Reason For Referral No Information Medications Medication SIG (Take, Route, Frequency, Duration) Notes Start Date End Date Status Losartan Potassium A ctive Extra Depth Orthopedic Shoes (1 Pair) with Customized Heat Molded Multidensity Innersoles (3 Pair) as directed Dx: NIDDM/Polyneuropathy (E11.42), Hammertoe Foot Deformity (M20.41,M20.42), Preulcerative Skin Lesion(s) (L85.1 07/26/2023 Active Keflex 500 MG 1 capsule Orally vanessa ry 12 hrs for 5 days 04/29/2022 Not-Taking metFORMIN HCl 500 MG Orally Not-Taking Furosemide 20 mg Not -Taking Flax Seed Oil Not-Ta kelechi Vasculera Active Vitamin B12 Active Multivitamin Active Lutein Active Zocor 40 MG 1 tablet in the even ing Orally Once a day for 30 day(s) Active Flaxseed Oil Active Lipoic Acid Active Lisinopril Active glipiZIDE 2.5 mg Act iris Eliquis Active Torsemide 10 MG 1 tablet Orally Once a day Active Wixela Inhub Active Cinnamon Not-Taking Spiriva HandiHaler A ctive Vitamin C Not-Taking Albuterol Active Turmeric Not-Taking Chromium Picolinate Active Aspirin Active Immunizations Vaccine Route Administration Date Status Comme nts COVID-19 Pfizer BioNTech Vaccine Unknown 10/22/2020 Adm inistered COVID-19 Pfizer BioNTech Vaccine Unknown 11/12/2020 Adm inistered Influenza Unknown 05/27/2023 Administered Social History Tobacco Use: Social History Observation Description Date Details (start date - stop date) Former Smoker NA - NA Tobacco use other than smoking: Question Answer Notes Are you an other tobacco user? No Tobacco Control (Standard) Question Answer Notes Tobacco use: Former smoker Additional Findings: Tobacco non-user Ex-cigaret te smoker AUDIT-C (Standard) Question Answer Notes Did you have a drink containing alcohol in the p ast year? No Points 0 Interpretation Negative Problems Problem Type SNOMED Code ICD Code Onset Dates Problem Status W/U Status Risk Notes Problem Acquired hammer toe of right foot (632602869405437 5) Other hammer toe(s) (acquired), right foot (M20.41) Active confirmed Problem Acquired hammer toe of left foot (482180731827136 3) Other hammer toe(s) (acquired), left foot (M20.42) Active confirmed Problem Polyneuropathy due to diabetes mellitus type I (670881556) Type 1 diabetes mellitus with diabetic polyneuropathy (E10.42) Active confirmed Problem Polyneuropathy due to type 2 diabetes mellitus (686813795) Type 2 diabetes mellitus with diabetic polyneuropathy (E11.42) Active confirmed Problem 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 Response to treatment Vital Signs Blood pressure diastolic 63 mm Hg 07/24/2024 Height 5 ft 10 in in 07/24/2024 Blood pressure systolic 135 mm Hg 07/24/2024 Weight 242 lbs 07/24/2024 BMI 34.72 kg/m2 07/24/2024 Encounters Encounter Location Date Provider Diagnosis Vick Benavidez [address] [place] [address] [place] [address] 01/06/2024 Cathy Brown Type 2 diabetes mellitus with diabetic polyneuropathy E11.42 ; Tinea unguium B35.1 ; Ingrown nail L60.0 ; Other hammer toe(s) (acquired), right foot M20.41 and Other hammer toe(s) (acquired), left foot M20.[address] [address] 03/20/2024 Cathy Perica Type 2 diabetes mellitus with diabetic polyneuropathy E11.42 and Tinea unguium B35.[address] [address] 05/22/2024 Cathy Perica Type 2 diabetes mellitus with diabetic polyneuropathy E11.42 ; Ingrown nail L60.0 and Tinea unguium B35.[address] [address] 05/30/2024 Cathy Dawsona Ingrown nail L60.0 a nd Type 2 diabetes mellitus with diabetic polyneuropathy E11.[address] [address] 06/12/2024 Cathy Dawsona Neuropathic ulcer of left foot with fat layer exposed L97.522 and Type 2 diabetes mellitus with diabetic polyneuropathy E11.[address] [address] 07/24/2024 Cathy Brown Type 2 diabetes mellitus with diabetic polyneuropathy E11.42 and Tinea unguium B35.[address] [address] 01/04/2024 Nick Pickens [address] [address] 01/27/2024 Cathy Dawsona [address] [address] 05/31/2024 Cathy Brown Assessments Encounter Date Diagnosis (ICD Code) Assessment Notes Treatment Notes Treatment Clinical Notes Section Notes 03/20/2024 Type 2 diabetes mellitus with diabetic polyneuropathy (ICD-10 - E11.42) 03/20/2024 Tinea unguium (ICD-10 - B35.1) 05/22/2024 Type 2 diabetes mellitus with diabetic polyneuropathy (ICD-10 - E11.42) 01/06/2024 Type 2 diabetes mellitus with diabetic polyneuropathy (ICD-10 - E11.42) 01/06/2024 Tinea unguium (ICD-10 - B35.1) 05/22/2024 Ingrown nail (ICD-10 - L60.0) 05/30/2024 Ingrown nail (ICD-10 - L60.0) 06/12/2024 Type 2 diabetes mellitus with diabetic polyneuropathy (ICD-10 - E11.42) 06/12/2024 Neuropathic ulcer of left foot with fat layer exposed (ICD-10 - L97.522) Response to treatment 07/24/2024 Type 2 diabetes mellitus with diabetic polyneuropathy (ICD-10 - E11.42) 07/24/2024 Tinea unguium (ICD-10 - B35.1) 05/30/2024 Type 2 diabetes mellitus with diabetic polyneuropathy (ICD-10 - E11.42) 01/06/2024 Ingrown nail (ICD-10 - L60.0) 05/22/2024 Tinea unguium (ICD-10 - B35.1) 01/06/2024 Other hammer toe(s) (acquired), right foot (ICD-10 - M20.41) Patient Educated with: DIABETIC FOOT CARE INSTRUCTIONS. pdf (DIABETIC FOOT CARE INSTRUCTIONS. pdf) 01/06/2024 Other hammer toe(s) (acquired), left foot (ICD-10 - M20.42) 03/20/2024 Other Plan Of Treatment Pending Test Test Name Order Date [id number] NAIL, 6 OR MORE 05/12/2021 [id number] NAIL, 6 OR MORE 07/28/2021 [id number] NAIL, 6 OR MORE 07/20/2022 [id number] NAIL, 6 OR MORE 07/26/2023 [id number]-Oadaiurj Plate 07/26/2023 66001 I&D ABSCESS- SIMPLE,SINGLE 022 91732-YBDC SKIN LESIONS, OVER 4 07/26/20 23 25908-KKMO SKIN LESIONS, OVER 4 07/20/20 22 06594-KXIR SKIN LESIONS, OVER 4 07/28/20 21 74171-WGWU SKIN LESIONS, OVER 4 05/12/20 21 Next Appt Details Provider Name:Cathy marcial, 09/25/2024 01:30:00 PM, [address] [place] [address], [place], [address], Provider Name:Cathy marcial, 11/30/2024 11:15:00 AM, [address], [place], [address], Insurance Providers Payer Name Payer Address Payer Phone Subscriber Number Group Number Insured Name Patient Relationship to Insured Coverage Start Date Coverage End Date Medicare National [employer] [address] [place] [address] [id number] Edwardo Gallagher Self - patient is the insured 0 [employer] Preferred [address] [place] [address] [id number] Edwardo Gallagher Self - patient is the insured 1 Medical (General) History Medical History History ICD Code Arthritis Cataracts Chicken pox Diabetes mellitus Heart disease High blood pressure Joint implants/screws Scarlet fever Surgical History Surgery Date(Month/Year) Open Heart 04/2010 knee replacement 04/2008, 04/2013 Hospitalization History Reason Date(Month/[facility]09[facility]19
--- OUTSIDE RECORDS SUMMARY | 2024-09-13 13:16 | XMS_ITS ---
Demographics Address [address] [facility] NO REFERRALS NEEDED FOR THIS PLAN [place] [address] Email Address Preferred Language en Marital Status Denominational Affiliation Unknown Race White Ethnic Group Not or Lati no Author Organization [facility] Address [address] [place] [id number] Care Team Providers Care Photograph Retoucher Name Role Phone TURNER BOOKER Primary Care Provider Allergies No Known Allergies Results Component Value Reference Range Notes CBC Reviewed date:06/10/2023 06:16:59 PM Interpretation: Performing Lab: Notes/Report: Original Ordering Provider: TURNER BOOKER MD [place], a member of [address] [address] [employer] - Vera Galvin MD WBC 7.3 4.8-10.8 x10-3/uL RBC 3.5 4.5-5.5 x10-6/uL HEMOGLOBIN 10.1 13.5-17.5 g/dL HEMATOCRIT 32.6 42-54 % MCV 94.2 79-98 fL MCH 29.2 27-32 pg MCHC 31.0 32-37 g/dL RDW 13.9 11-15 % PLT COUNT 173 130-400 x10-3/uL MEAN PLATELET VOLUME 10.6 7-11 fL NRBC % AUTO 0.0 <1 % NRBC # AUTO 0.00 <0.1 x10-3/uL MICROALB/CREAT RATIO, RANDOM Reviewed date:06/10/2023 06:17:10 PM Interpretation: Performing Lab: Notes/Report: Original Ordering Provider: TURNER BOOKER MD [employer], a member of [address] [address] [employer]ist[employer] Server - Vera Galvin MD MICROALBUMIN, RANDOM 224.0 0.0-29.0 mg/L MICROALB/CRE RATIO RANDOM 622.2 0.0-30.0 mg/G CREATININE, RANDOM URINE 36 REASON FOR VISIT Medicare Wellness Visit:, DEPRESSION SCREENING, LABS DONE DECEMBER 2022, EKG DUE Medications Medication SIG (Take, Route, Frequency, Duration) Notes Start Date End Date Status Metoprolol Tartrate 50 MG 1 tablet with food Oral Twice a day TAKE 1 TABLET BY MOUTH TWICE A DAY 12/27/2014 Not-Taking hydroCHLOROthiazide 12.5 MG Oral for 30 TAKE 1 CAPSULE BY MOUTH EVERY DAY 05/10/2013 Not-Taking Lisinopril 10 MG 1 tablet Orally Once a day Not-Taking Cinnamon 500 MG 2 tab Orally daily Not-Taking Vitamin C Plus 500 MG 1 TAB Orally DAILY 02/25/2010 Not-Taking Cyclobenzaprine HCl 5 MG 1 tablet as needed Orally Three times a day for 10 days 06/13/2019 Not-Taking Symbicort 160-4.5 MCG/ACT 2 puffs Inhalation Twice a day Not-Taking Augmentin 875-125 MG 1 tablet Orally every 12 hrs for 7 days Not-Taking Turmeric 500 MG 1 TAB Orally DAILY Not-Taking Augmentin 875-125 MG 1 tablet Orally every 12 hrs 06/07/2022 Not-Taking Benzonatate 100 MG 1 capsule as needed Orally Three times a day 06/07/2022 Not-Taking metFORMIN HCl 500 MG 1 tablet with meals Orally Twice a day Not-Taking Mucinex 600 MG 1 tablet as needed Orally every 12 hrs Not-Taking Furosemide 20 MG 1 TAB Orally Once a day Not-Taking Tiotropium Phoenix Monohydrate 2.5 MCG/ACT 2 puffs Inhalation Once a day Not-Taking Vasculera - 1 tab Orally daily Active Lisinopril 20 MG TAKE ONE TABLET BY MOUTH TWICE DAILY Orally twice a day for 90 days 01/06/2021 Active Chromium Picolinate 200 MCG 1 TAB Oral Daily 05/02/2014 Active Vitamin B-12 1000 MCG 1 tablet Orally Once a day Active Cepacol Not-Taking Multi Vitamin Mens 1 tablet Oral Once a day 02/25/2010 Active Zocor 40 MG 1 tablet in the evening Oral Daily TAKE 1 TABLET DAILY. 06/04/2010 Active Aspirin 81 MG Oral Daily for 0 TAKE 1 TABLET DAILY. 09/01/2006 Active Lutein 20 MG 1 tableT Orally Once a day 08/31/2011 Active Flaxseed Oil 1200 MG 1 TAB Oral DAILY TAKE DIRECTED. 01/22/2015 Active Eliquis 2.5 MG as directed Orally bid Active Spiriva Respimat 2.5 MCG/ACT 2 puffs Inhalation Once a day Active Wixela Inhub 250-50 MCG/ACT 1 puff Inhalation Twice a day Active Albuterol Sulfate 108 (90 Base) MCG/ACT 1 puff as needed Inhalation every 4 hrs Active glipiZIDE ER 5 MG 1 tablet Orally Once a day Active Torsemide 5 MG 1 tablet Orally Once a day for 30 day(s) Active Lipoic Acid 150 MG 600MG DAILY Orally Once a day Active Social History Tobacco Use: Social History Observation Description Date Details (start date - stop date) Never Smoker NA - NA Tobacco Use/Smoking Question Answer Notes Are you a nonsmoker Additional Findings: Tobacco Non-User Aggressive non-smoker Alcohol Screen (Audit-C) Question Answer Notes Did you have a drink contain ing alcohol in the past year? Yes How often did you have a dri nk containing alcohol in the past year? 4 or more times a week (4 points) How many drinks did you have on a typical day when you were drinking in the past year? 1 or 2 drinks (0 point) How often did you have 6 or more drinks on one occasion in the past year? Never (0 point) Points 4 Interpretation Positive Tobacco use other than smoking: Question Answer Notes Are you an other tobacco user? No Section Notes: Came alone.No other complaints Olga Lidia Problems Problem Type SNOMED Code ICD Code Onset Dates Problem Status W/U Status Risk Notes Problem Annual wellness visit ([id number]) Medicare annual wellness visit, subsequent (Z00.00) Active confirmed 06/09/23 Reviewed [facility]OLST Form and HCP No changes Vital Signs Temperature 98.8 degrees Fahrenheit 06/09/20 23 Blood pressure systolic 148 mm Hg 06/09/20 Blood pressure diastolic 80 mm Hg 023 Heart Rate 62 /min 06/09/2023 Height 70 in 06/09/2023 Weight 250 lbs 06/09/2023 BMI 35.87 kg/m2 06/09/2023 Oximetry 95 % 06/09/2023 Encounters Encounter Location Date Provider Diagnosis [address] [place] [address] 06/09/2023 TURNER BOOKER 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 ; Medicare annual wellness visit, subsequent Z00.00 ; Chronic kidney disease, stage 3 (moderate) N18.3 ; 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 ; Venous insufficiency (chronic) (peripheral) I87.2 ; Chronic anticoagulation Z79.01 ; DRAKE (obstructive sleep apnea) G47.33 ; Diastolic CHF with preserved left ventricular function, NYHA class 2 I50.30 ; Emphysema, unspecified J43.9 and Mixed hyperlipidemia E78.2 Assessments Encounter Date Diagnosis (ICD Code) Assessment Notes Treatment Notes Treatment Clinical Notes Section Notes 06/09/2023 Diabetes mellitus with nephropathy (ICD-10 - E11.21) 06/09/2023 Medicare annual wellness visit, subsequent (ICD-10 - Z00.00) 06/09/23 Reviewed [facility] Form and HCP No changes 06/09/2023 Chronic kidney disease, stage 3 (moderate) (ICD-10 - N18.3) 06/09/2023 Anemia secondary to renal failure (ICD-10 - D63.1) 06/09/2023 Venous insufficiency (chronic) (peripheral) (ICD-10 - I87.2) 06/09/2023 Chronic anticoagulation (ICD-10 - Z79.01) 06/09/2023 DRAKE (obstructive sleep apnea) (ICD-10 - G47.33) 06/09/2023 Diastolic CHF with preserved left ventricular function, NYHA class 2 (ICD-10 - I50.30) 06/09/2023 Emphysema, unspecified (ICD-10 - J43.9) 06/09/2023 Mixed hyperlipidemia (ICD-10 - E78.2) Plan Of Treatment Pending Test Test Name Order Date Urinalysis, Complete 06/09/2023 Lipid Panel 06/09/2023 Chem-Comprehensive 06/09/2023 HEMOGLOBIN A1C 06/09/2023 Progress Notes * Edwardo GALLAGHERDOB:1935 (87 yo M)Acc No.[id number]:06/09/2023 Progress Note Patient:?Edwardo Gallagher Provider:?Turner Booker MD :1935???Age:87 Y???Sex:Male Klever e:06/09/2023 Address:[address] [place] [address], NO R EFERRALS NEEDED FOR THIS PLAN, [id number] Subjective: * Chief Complaints: * ???Medicare Wellness Visit:D EPRESSION SCREENINGLABS DONE DECEMBER 2022EKG DUE * HPI: ???Constitutional:? 06/09/23 MEDICARE WELLNESS VISIT: ?Came alone Drove in his 2018 [employer] Olga Lidia is home cutting grass. 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 Saw Jai naval surface fire support planner, Goes to [place] and sees Dr there too.Gets all his neds thru them No new compliants Had flu shot and RSV shot through [facility]. No new complaints except tired legs Uses walker when he goes to [facility]. Brother 93 yr diabetic had foot amputated ?01/06/23 Medications reviewed and reconciled ?Dr Tyler Bautista nephrology saw him last week. he changed water pill from furosemide 20 to torsemide 5mg. sees him next in june. was told stable lab work ?Dr Warren going 01/19/23 ?Dr Crawford ([facility]) for knees, stable, does not need to go back ?Dr Real cardiology was supposed to see her last week but not there on vacation. has an appt march ?ENT saw wednesday. everything fine. ?Right ankle feels funny, pain sharp quick, then goes away immediately. pt does 15 squats twice a day with help of walker ?Venous insufficiency. Dr Ahumada did his legs for him. Knees replaced 15 years ago. ?[facility]ent to [facility] yesterday 5-10pm. went to bathroom. does 15 squats. daily. tries to do twice a day. ?Pt had PT for 6 weeks next door. ?Podiatry Dr Pickens once a year 01/06/23 Medications reviewed and reconciled ?Dr Tyler Bautista nephrology saw him last week. he changed water pill from furosemide 20 to torsemide 5mg. sees him next in june. was told stable lab work ?Dr Warren going 01/19/23 ?Dr Crawford ([facility]) for knees, stable, does not need to go back ?Dr Real cardiology was supposed to see her last week but not there on vacation. has an appt march ?ENT saw wednesday. everything fine. ?Right ankle feels funny, pain sharp quick, then goes away immediately. pt does 15 squats twice a day with help of walker ?Venous insufficiency. Dr Ahumada did his legs for him. Knees replaced 15 years ago. ?Went to [facility] yesterday 5-10pm. went to bathroom. does 15 squats. daily. tries to do twice a day. ?Pt had PT for 6 weeks next door. ?Podiatry Dr Pickens once a year ? 02/26/20 Reached Mr. Gallagher over the phone. Reviewed Dr. Young's notes and his experience with the visit. Assessment by Dr. 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 Metoprolol was stopped. Dr. Real of [place] ordered some blood works, completed it last week but did not receive the results yet. Pt will ask [place] doctor to send the blood work results to the office. BS in AM is 130-140, after taking his DM medication goes down to 110. Denies dizziness, presyncope, n/v/d, or claminess. 3 fingers of his left hand are tingly. Saw a specialist at [facility] and was told it's from arthritis. Advised him to use soft small pillow under the neck to keep good posture with some neck exercise during the day. Olga Lidia doing well. Has not doing anything since they came back from [place] other than some restaurants. Otherwise reports doing well. No other complaints. Reviewed medications, reconciled as needed. ?Constitutional: ? 05/12/21 Came to the office alone Olga Lidia left knee started hurting after a stumble. Had PT and saw Dr Bustillos and given a cortisone shot to the knee and went for PT ar [facility]. Feeling better and can walk without a walker now. . No plans to travel to [place] this year. ? Gets cramps in the lateral side of the left leg Drinks one teaspoon of honey mustard every morning and it helps the cramps Increases when he drinks when Went to [employer] in [place] last night and had glass of wine and had cramps this morning. Hasnt seen his brother Twin for 2 months[address] and visits him. Another brother valdo 88 yr is in [place]. Had multiple CVAs ? Meds reviewed and reconciled Saw Dr Warren and told he has COPD. Was a smoker Quit in 70s. ? 01/06/21 Came alone Olga Lidia is at the [employer] cashing in a [employer] ticket for $900 He has won $2000 earlier this month at [facility]. Takes 200-300 dollars to play. Compliant with his medications. ? Saw Dr Henry PA 2 weeks ago . Had investigations done for his shortness of breath, Had CT scan and transthoracic echo Has dilatation of ascending aorta 4.[address] Macdonald [facility] again He saw him last year. Gets sob when he walks fast, climbing stairs, walking more than 100 feet . Goes to [place] twice a year Sees Dr Real as his PCP. Compliant with his medications. Wants to get a second opinion from a cook restaurant for his sob Had [address] Young Going back again for follow up. ? Brother Twin is 92 yr is [place]. Another brother Linh is in [place] 87 yr . 3 bothers are Sister Nora lives in [place] 82 yr Calls her twice a week 5 yrs ago. ? 09/05/20 Called to check his BP recordings Leaving for [place] next week. Knows Edwardo Lindsay from [facility]. Packing to leave for [place] next week Went to [place] yesterday and took his BP monitors and calibrated theer 139/77, 72 On his machine it was 151/ 90 Wrist 161. Using hiscuff on his left hba002/70 , 136/76 , 121/59, 136/67 117/62, 52, 130/79, 64. 141/72, 67 , 128/76, 68 Weight 255 lb Will not change his BP meds ? 08/29/20 Called him at home Olga Lidia also on phone Going to [place] on 09.11.20 by plane and will stay there for 5 weeks Got his diabetes shoes from [employer]. Compliant with his meds Reviewed and reconciled . Checked his BS this am BS 159 before breakfast. Weight 256 lbs BP 168/[address] Xavier last week and had echocardiogram Had BP of 128/68. at her office . Going to [place] today to get labs and BP check once a year gets his Eliquis from ther Dr Henry notes not in chart Told him to get labs check BP 3 times a day and Ill call him in a weeks time to review his BP recordings before increasing Losartan and adding HCTZ ? 05/30/20 Called him at home Reviewed his labs on 02/27/20. A1C down to 7.1 Has echo scheduled on Jul [address] Young Has FU with Dr Real in January 2021. Hasnt gone put much except to eat at [employer] Goes to [facility] [employer] for meals. ? No new complaints. Going to [place] on 06/12/20 and be back on 07/01/20 Will sta at [facility]. * ROS:?General/Constitutional:?Denies?Change in appetite.?Denies?Chills.?Denies?Fatigue.?Denies?Fever.?Denies?Headache.?Denies?L ightheadedness.?Denies?Sleep disturbance.?Denies?Weight gain.?Denies?Weight loss.?Respiratory:?Denies?Asthma,?denies.?Denies?Breathing pattern.?Denies?Breathing problems,?denies.?Denies?Chest pain.?Denies?Cough.?Denies?Hemoptysis.?Denies?Pain with inspiration.?Denies?Pneumonia,?denies.?Denies?Shortness of breath,?denies.?Denies?Shortness of breath at rest.?Denies?Shortness of breath with exertion.?Denies?Sputum production.?Denies?Tuberculosis,?denies.?Denies?Wheezing.?Cardiovascular:?Denies?Chest pain.?Denies?Chest pain at rest.?Denies?Chest pain with exertion.?Denies?Claudication.?Denies?Cyanosis.?Denies?Difficulty laying flat.?Denies?Dizziness.?Denies?Dyspnea on exertion.?Denies?Fluid accumulation in the legs.?Denies?Heart murmur,?denies.?Denies?Heart problems,?denies.?Denies?High blood pressure,?denies.?Denies?Irregular heartbeat,?denies.?Denies?Orthopnea.?Denies?Palpitations,?denies.?Denies?Rheumat ic fever,?denies.?Denies?Shortness of breath.?Denies?Weakness.?Denies?Weight gain.? * Medical History:? * Surgical History:?Left TKR 2 011Right TKR [address] Surgery [facility] Campos [id number] [facility] [place] 2010Vein laser surgery for venous insufficienct by Dr Ahumada 5 years ago. Helped his ankle edema 2011 * Hospitalization/Major Diagno stic Procedure:? * Family History:?FamilyHx: [facility] history of cardiac disorder;Family history of diabetes mellitus;.? Born in . 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 Mother Mariangel (from [place]) at age 82 yr from CHF DM. Had 1 sister and 5 brothers 3 brothers (Iglesia, Dat and You). Sister Nora 81 yr lives in [place] with 3 sons. Brother Valdo Gallagher 87 yr retired rock room worker in [place].Had 2 CVA Brother Twin 89 yr Lives in [place] worked in [employer] WORK HX:Was in [employer] for 4 years Joined at age 18 yrs. Was in [place]. 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 MARITAL HX 56 years Olga Lidia Rey at age 26 yr. Met her at a flower show. 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 Only child. Have no children. Hobbies: Photography, gardening Went to [employer] every year Likes to deng to [place], [place], [place], [place] and [place]. Once a month. * Social History:?Tobacco Use:?Tobacco Use/Smoking?Are you a?nonsmoker ?Additional Findings: Tobacco Non-User?Aggressive non-smoker ?Tobacco use other than smoking?Are you an other tobacco user??No ???Social_Migrated:?SocialHx: Former smokerReligious Affiliation Sohail CatholicNever a smokerBeing A Social Drinker. ???Drugs/Alcohol:?Alcohol Screen (Audit-C)?Did you have a drink containing alcohol in the past year??Yes ?How often did you have a drink containing alcohol in the past year??4 or more times a week (4 points) ?How many drinks did you have on a typical day when you were drinking in the past year??1 or 2 drinks (0 point) ?How often did you have 6 or more drinks on one occasion in the past year??Never (0 point) ?Points?4 ?Interpretation?Positive ?Do you drink alcohol?: Yes. ???Came alone.No other complaints Olga Lidia. * Medications:?TakingLipoic Ac id 150 MG Capsule 600MG DAILY Orally Once a dayTorsemide 5 MG Tablet 1 tablet Orally Once a dayWixela Inhub 250-50 MCG/ACT Aerosol Powder Breath Activated 1 puff Inhalation Twice a dayEliquis 2.5 MG Tablet as directed Orally bidSpiriva Respimat 2.5 MCG/ACT Aerosol Solution 2 puffs Inhalation Once a dayAlbuterol Sulfate 108 (90 Base) MCG/ACT Aerosol Powder Breath Activated 1 puff as needed Inhalation every 4 hrsglipiZIDE ER 5 MG Tablet Extended Release 24 Hour 1 tablet Orally Once a dayLutein 20 MG Tablet 1 tableT Orally Once a dayFlaxseed Oil 1200 MG CAPS 1 TAB Oral DAILY, Notes: TAKE DIRECTED.Aspirin 81 MG TABS Oral Daily, Notes: TAKE 1 TABLET DAILY.Multi Vitamin Mens TABS 1 tablet Oral Once a dayZocor 40 MG TABS 1 tablet in the evening Oral Daily, Notes: TAKE 1 TABLET DAILY.Chromium Picolinate 200 MCG CAPS 1 TAB Oral DailyVitamin B-12 1000 MCG Tablet 1 tablet Orally Once a dayVasculera - Tablet 1 tab Orally dailyLisinopril 20 MG Tablet TAKE ONE TABLET BY MOUTH TWICE DAILY Orally twice a dayTaking Lipoic Acid 150 MG Capsule 600MG DAILY Orally Once a dayTaking Torsemide 5 MG Tablet 1 tablet Orally Once a dayTaking Wixela Inhub 250-50 MCG/ACT Aerosol Powder Breath Activated 1 puff Inhalation Twice a dayTaking Eliquis 2.5 MG Tablet as directed Orally bidTaking Spiriva Respimat 2.5 MCG/ACT Aerosol Solution 2 puffs Inhalation Once a dayTaking Albuterol Sulfate 108 (90 Base) MCG/ACT Aerosol Powder Breath Activated 1 puff as needed Inhalation every 4 hrsTaking glipiZIDE ER 5 MG Tablet Extended Release 24 Hour 1 tablet Orally Once a dayTaking Lutein 20 MG Tablet 1 tableT Orally Once a dayTaking Flaxseed Oil 1200 MG CAPS 1 TAB Oral DAILY, Notes: TAKE DIRECTED.Taking Aspirin 81 MG TABS Oral Daily, Notes: TAKE 1 TABLET DAILY.Taking Multi Vitamin Mens TABS 1 tablet Oral Once a dayTaking Zocor 40 MG TABS 1 tablet in the evening Oral Daily, Notes: TAKE 1 TABLET DAILY.Taking Chromium Picolinate 200 MCG CAPS 1 TAB Oral DailyTaking Vitamin B- 12 1000 MCG Tablet 1 tablet Orally Once a dayTaking Vasculera - Tablet 1 tab Orally dailyTaking Lisinopril 20 MG Tablet TAKE ONE TABLET BY MOUTH TWICE DAILY Orally twice a dayNot-TakingCepacol Tiotropium Phoenix Monohydrate 2.5 MCG/ACT Aerosol Solution 2 puffs Inhalation Once a dayMucinex 600 MG Tablet Extended Release 12 Hour 1 tablet as needed Orally every 12 hrsFurosemide 20 MG Tablet 1 TAB Orally Once a daymetFORMIN HCl 500 MG Tablet 1 tablet with meals Orally Twice a dayBenzonatate 100 MG Capsule 1 capsule as needed Orally Three times a dayAugmentin 875-125 MG Tablet 1 tablet Orally every 12 hrsAugmentin 875-125 MG Tablet 1 tablet Orally every 12 hrsTurmeric 500 MG Capsule 1 TAB Orally DAILYCyclobenzaprine HCl 5 MG Tablet 1 tablet as needed Orally Three times a daySymbicort 160-4.5 MCG/ACT Aerosol 2 puffs Inhalation Twice a dayCinnamon 500 MG Capsule 2 tab Orally dailyVitamin C Plus 500 MG Tablet 1 TAB Orally DAILYLisinopril 10 MG Tablet 1 tablet Orally Once a dayMetoprolol Tartrate 50 MG TABS 1 tablet with food Oral Twice a day, Notes: TAKE 1 TABLET BY MOUTH TWICE A DAYhydroCHLOROthiazide 12.5 MG CAPS Oral , Notes: TAKE 1 CAPSULE BY MOUTH EVERY DAYMedication List reviewed and reconciled with the patientNot-Taking Cepacol Not-Taking Tiotropium Phoenix Monohydrate 2.5 MCG/ACT Aerosol Solution 2 puffs Inhalation Once a dayNot-Taking Mucinex 600 MG Tablet Extended Release 12 Hour 1 tablet as needed Orally every 12 hrsNot-Taking Furosemide 20 MG Tablet 1 TAB Orally Once a dayNot-Taking metFORMIN HCl 500 MG Tablet 1 tablet with meals Orally Twice a dayNot-Taking Benzonatate 100 MG Capsule 1 capsule as needed Orally Three times a dayNot-Taking Augmentin 875-125 MG Tablet 1 tablet Orally every 12 hrsNot-Taking Augmentin 875-125 MG Tablet 1 tablet Orally every 12 hrsNot-Taking Turmeric 500 MG Capsule 1 TAB Orally DAILYNot-Taking Cyclobenzaprine HCl 5 MG Tablet 1 tablet as needed Orally Three times a dayNot-Taking Symbicort 160-4.5 MCG/ACT Aerosol 2 puffs Inhalation Twice a dayNot-Taking Cinnamon 500 MG Capsule 2 tab Orally dailyNot- Taking Vitamin C Plus 500 MG Tablet 1 TAB Orally DAILYNot-Taking Lisinopril 10 MG Tablet 1 tablet Orally Once a dayNot-Taking Metoprolol Tartrate 50 MG TABS 1 tablet with food Oral Twice a day, Notes: TAKE 1 TABLET BY MOUTH TWICE A DAYNot-Taking hydroCHLOROthiazide 12.5 MG CAPS Oral , Notes: TAKE 1 CAPSULE BY MOUTH EVERY DAYMedication List reviewed and reconciled with the patient * Allergies:?N.K.D.A.no[Allerg ies Verified] Objective: * Vitals:?Temp:98.8 F, HR:62 / min, BP:148/80 mm Hg, Wt:250 lbs, BMI:35.87 Index, Ht: 70 in, Oxygen sat %:95 %, Wt-k.4 kg. * Examination: ???General Examination: ?GENERAL APPEARANCE:?in no acute distress, well developed, well nourished.?HEAD:?normocephalic, atraumatic.?HEART:?irr rate and rhythm.?LUNGS:?clear to auscultation bilaterally.?ABDOMEN:?normal, bowel sounds present, soft, nontender, nondistended.?EXTREMITIES:?no clubbing, cyanosis, or edema.?PSYCH:?alert, oriented, good eye contact ,speech clear, thought content without suicidal ideation, delusions.? 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 Plan: * Treatment: * Procedure Codes:? * Billing Information: * Visit Code:? 43552 Office Visit, Est Pt., Level 4. G0439 Annual Wellness Visit AWV. 81103 [facility] Subsequent. G0444 Add-on AWV w/ Depression. Modifiers: 59 * Procedure Codes:? Care Plan Details* * Sign off status: Completed true * Provider:Josie Booker MD Date:?2022 Generated for Moreno acuna/Che/Phoebeitting on:?09/13/2024 01:16 PM EST History and Physical Notes * Examination Category Sub-Category Detail Notes Category Not es General Examination GENERAL APPEARANCE: in no ac [place] distress, well developed, well nourished HEAD: normocephalic, atrau matic HEART: irr rate and rhythm LUNGS: clear to auscultatio n bilaterally ABDOMEN: normal, bowel sounds present, soft, nontender, nondistended EXTREMITIES: no clubbing, cyanosi s, or edema PSYCH: alert, oriented , go od eye contact , speech clear , thought content without suicidal ideation, delusions
--- OUTSIDE RECORDS SUMMARY | 2024-09-13 13:16 | XMS_ITS ---
Author Organization [facility] Address [address] [place] [address] Care Team Providers Care Earth Auger Operator Name Role Phone Turner Booker Primary Care Provider Cathy Lewis Unavailable [phone] Allergies No Known Allergies REASON FOR VISIT Open sore Medications Medication SIG (Take, Route, Frequency, Duration) Notes Start Date End Date Status Vitamin C Not-Taking Turmeric Not-Taking Cinnamon Not-Taking Keflex 500 MG 1 capsule Orally vanessa ry 12 hrs for 5 days 04/29/2022 Not-Taking metFORMIN HCl 500 MG Orally Not-Taking Zocor 40 MG 1 tablet in the even ing Orally Once a day for 30 day(s) Active Losartan Potassium A ctive Extra Depth Orthopedic Shoes (1 Pair) with Customized Heat Molded Multidensity Innersoles (3 Pair) as directed Dx: NIDDM/Polyneuropathy (E11.42), Hammertoe Foot Deformity (M20.41,M20.42), Preulcerative Skin Lesion(s) (L85.1 07/26/2023 Active Furosemide 20 mg Not -Taking Flax Seed Oil Not-Ta kelechi Vasculera Active Lutein Active Lipoic Acid Active Vitamin B12 Active Multivitamin Active Flaxseed Oil Active Chromium Picolinate Active Lisinopril Active glipiZIDE 2.5 mg Act iris Eliquis Active Aspirin Active Torsemide 10 MG 1 tablet Orally Once a day Active Albuterol Active Wixela Inhub Active Spiriva HandiHaler A ctive Social History Tobacco Use: Social History Observation Description Date Details (start date - stop date) Former Smoker NA - NA Tobacco Use/Smoking Question Answer Notes Are you a: former smoker When did you stop smoking? 1970 Additional Findings: Tobacco Non-User Current no n-smoker Alcohol Screen Question Answer Notes Did you have a drink contain ing alcohol in the past year? Yes How often did you have a dri nk containing alcohol in the past year? 4 or more times a week (4 points) How many drinks did you have on a typical day when you were drinking in the past year? 1 or 2 drinks (0 point) Points 4 Interpretation Positive Tobacco use other than smoking: Question Answer Notes Are you an other tobacco user? 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 Response to treatment Vital Signs Height 5 ft 10 in in 06/12/2024 Weight 242 lbs 06/12/2024 BMI 34.72 kg/m2 06/12/2024 Encounters Encounter Location Date Provider Diagnosis [facility] [address] [address] 06/12/2024 Cathy Kevin Neuropathic ulcer of left foot with fat layer exposed L97.522 and Type 2 diabetes mellitus with diabetic polyneuropathy E11.42 Assessments Encounter Date Diagnosis (ICD Code) Assessment Notes Treatment Notes Treatment Clinical Notes Section Notes 06/12/2024 Neuropathic ulcer of left foot with fat layer exposed (ICD-10 - L97.522) Response to treatment 06/12/2024 Type 2 diabetes mellitus with diabetic polyneuropathy (ICD-10 - E11.42) Plan Of Treatment Next Appt Details Follow Up: as scheduled, Connie son: Provider Name:Cathy marcial, 09/25/2024 01:30:00 PM, [address] [place], [address], Provider Name:Cathy marcial, 11/30/2024 11:15:00 AM, [address] [place], [address], Procedure Notes * Category Sub-Category Detail Notes Debride skin and subQ Open wound NEUROPATHY : Physician of record performed open wound selective debridement of devitalized necrotic/nonviable soft tissue, fibrin, exudate, epidermis, dermis, thru skin and subcutaneous fat tissue, first 20 sq cm or less, using sharp dissection with sterile 15 blade, and/or tissue nippers. ANESTHESIA was not required due to presence of NEUROPATHY. Hemostasis was controlled through direct pressure. Sterile antibiotic dressing applied. Post debridement measurements: 7mm x 3mm x 3mm. Character of the wound post debridement is stable (83521), The patient was instructed on importance of proper wound care consisting of pressure reduction, maintainance of moist wound environment, and regular debridement of devitilized tissue, The patient is to cleanse the wound with warm soapy water/peroxide/saline or betadine BID based on product availability , The patient is to apply Antibiotic Oint. to the wound and cover with a DSD , The patient was instructed to change dressings according to orders or PRN saturation, leaks , The patient was instructed to monitor and report any signs or symptoms of infection or any untoward reactions, The patient is to cont the local wound care as directed till condition is completely healed Progress Notes * Edwardo VELASQUEZDOB:[birth year] (88 yo M)Acc No.[id number]:06/12/2024 Progress Notes Patient:?Edwardo Velasquez Provider:?Cathy Brown DPM :1935???Age:88 Y???Sex:Male Klever e:06/12/2024 Address:[address] [place], [place] [address] Pcp:Turner Booker Subjective: * Chief Complaints: * ???Open sore * HPI: ???Skin problems:?Location:?Left, 1st, Toe(s).? * ROS:?General/Constitutional:?Nausea?denies.?Vomiting?denies.?Hunger Thirst?denies.?Loss appetite?denies.?Chills?denies.?Fatigue?denies.?Fever?denies.?Night Sweats?denies.?Unexplained weight loss?denies.?Unexplained weight gain?denies.?HEENTM:?Dentures?denies.?Dizziness?denies.?Glasses/contacts?denies.?Retinopathy?de nies.?Blurred/double vision?denies.?TMJ?denies.?Discharge/drainage?denies.?Implants?denies.?Sore throat?denies.?Dental implants?denies.?Hard of hearing ?admits.?Difficulty chewing/swallowing/speaking?denies.?Nose bleeds?denies.?Sore mouth?denies.?Respiratory:?On Oxygen?denies.?Pneumonia/pleurisy?denies.?Bronchitis?denies.?Emphysema?denies.?C oughing?denies.?Cough blood?denies.?Shortness of breath?admits.?Wheezing?denies.?Cardiovascular:?Pacemaker?denies.?MVP?denies.?WPW?denies.?CHF?denies.?Heart attack?denies.?Septal defect?denies.?Rapid beat?denies.?Chest pain ?denies.?Atrial Fib.?denies.?Murmur/Palpitations?denies.?Gastrointestinal:?Hemorrhoids?denies.?Stomach/Abdominal pain?denies.?Dark blood stool?denies.?Irritable bowel ?denies.?Constipation?denies.?Diarrhea?denies.?Hematology:?Swelling?admits.?Clots?denies.?Varicose Veins?admits.?Bruising?admits, on anticoagulants.?Bleeding problem?admits, on anticoagulants.?Genitourinary:?Blood urine?denies.?Frequent/Painfu/urination/bladder control?denies.?Kidney stones?denies.?Infection (UTI)?denies.?Nephropathy?denies.?sex trans dis (STD)?denies.?Prostate?denies.?Musculoskeletal:?Hammertoes?admits.?Bunions?denies.?Back Pain?denies.?Muscle Cramps/ Resting?denies.?Muscle cramps / walking?denies.?Generalized aches and pains?admits.?Weakness?denies.?Integ.:?Campos?denies.?Scars?denies.?Corns/calluses?admits.?Ingrown nails?admits.?Painful nails?denies.?Open Sores?denies.?Rashes?denies.?Neurologic:?Difficulty sleeping?denies.?Brain disorder?denies.?Numbness?denies.?Balance trouble?denies.?Confusion?denies.?Fainting/blackouts?denies.?Tingling?denies.?Tr emors?denies.? * Medical History:? 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 * Social History:?Tobacco Use:?Tobacco Use/Smoking?Are you a:?former smoker ?When did you stop smoking??1970 ?Additional Findings: Tobacco Non-User?Current non-smoker ?Tobacco use other than smoking?Are you an other tobacco user??No ???Drugs/Alcohol:?Drugs?Have you used drugs other than those for medical reasons in the past 12 months??No ?Alcohol Screen?Did you have a drink containing alcohol in the past year??Yes ?How often did you have a drink containing alcohol in the past year??4 or more times a week (4 points) ?How many drinks did you have on a typical day when you were drinking in the past year??1 or 2 drinks (0 point) ?Points?4 ?Interpretation?Positive ???Miscellaneous:?Caffeine: yes, frequency:, 1-2 cups per day. ?no Children. ?Exercise: yes, walking. ?Marital status: . ?Occupation: Retired [employer]. * Medications:?TakingAlbuterol Spiriva HandiHaler Wixela Inhub Torsemide 10 MG Tablet 1 tablet Orally Once a dayAspirin Chromium Picolinate Flaxseed Oil Eliquis glipiZIDE 2.5 mg Lisinopril Lipoic Acid Lutein Multivitamin Vitamin B12 Vasculera Zocor 40 MG Tablet 1 tablet in the evening Orally Once a dayExtra Depth Orthopedic Shoes (1 Pair) with Customized Heat Molded Multidensity Innersoles (3 Pair) as directed Dx: NIDDM/Polyneuropathy (E11.42), Hammertoe Foot Deformity (M20.41,M20.42), Preulcerative Skin Lesion(s) (L85.1Losartan Potassium Taking Albuterol Taking Spiriva HandiHaler Taking Wixela Inhub Taking Torsemide 10 MG Tablet 1 tablet Orally Once a dayTaking Aspirin Taking Chromium Picolinate Taking Flaxseed Oil Taking Eliquis Taking glipiZIDE 2.5 mg Taking Lisinopril Taking Lipoic Acid Taking Lutein Taking Multivitamin Taking Vitamin B12 Taking Vasculera Taking Zocor 40 MG Tablet 1 tablet in the evening Orally Once a dayTaking Extra Depth Orthopedic Shoes (1 Pair) with Customized Heat Molded Multidensity Innersoles (3 Pair) as directed Dx: NIDDM/Polyneuropathy (E11.42), Hammertoe Foot Deformity (M20.41,M20.42), Preulcerative Skin Lesion(s) (L85.1Taking Losartan Potassium Not-Taking/PRNFlax Seed Oil Furosemide 20 mg metFORMIN HCl 500 MG Tablet Orally Keflex 500 MG Capsule 1 capsule Orally every 12 hrsTurmeric Vitamin C Cinnamon Medication List reviewed and reconciled with the patientNot-Taking/PRN Flax Seed Oil Not-Taking/PRN Furosemide 20 mg Not-Taking/PRN metFORMIN HCl 500 MG Tablet Orally Not-Taking/PRN Keflex 500 MG Capsule 1 capsule Orally every 12 hrsNot-Taking/PRN Turmeric Not-Taking/PRN Vitamin C Not-Taking/PRN Cinnamon Medication List reviewed and reconciled with the patient * Allergies:?N.K.D.A.yes[Aller gies Verified] Objective: * Vitals:?Ht: 5 ft 10 in, Wt: 242, BMI: 34.72, Shoe size: 12, BS: did not test, Wt-k.77 kg. * Examination: ???Ophthalmology Referral: ?DIABETES EYE EXAM?Dermatologic: ?ULCER:?LOCATION, medial TA LEFT, SIZE, 7mm X 2mm X 3mm, BASE, fibro- granular, RIM, hyperkeratotic, UNDERMINING, mild, TRACKING, Sub Q with Fat layer exposed, DRAINAGE, serosanguineous, moderate, NECROTIC TISSUE, loosely-adherent, yellow slough, MALODOR, absent, CALOR, absent, ERYTHEMA, absent.?Neurological: ?SENSORY:? Neurological exam demonstrates, reduced light touch sensation, reduced sharp/dull pin prick discrimination , B/L, 5.07 monofilament test performed at plantar aspects of 5 varied sites per foot shows sensation, reduced , B/L.?Vascular: ?DP PULSES(B):?1/4, B/L.?PT PULSES(B):?1/4, B/L.?CAPILLARY FILL TIME:?immediate, all digits, B/L.?TEMPERTURE GRADIENT(C):?normal, warm to cool, proximal to distal, B/L, B/L.? 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 Plan: * Treatment: * Procedures:?Debride skin and subQ:?Open wound?NEUROPATHY: Physician of record performed open wound selective debridement of devitalized necrotic/nonviable soft tissue, fibrin, exudate, epidermis, dermis, thru skin and subcutaneous fat tissue, first 20 sq cm or less, using sharp dissection with sterile 15 blade, and/or tissue nippers. ANESTHESIA was not required due to presence of NEUROPATHY. Hemostasis was controlled through direct pressure. Sterile antibiotic dressing applied. Post debridement measurements: 7mm x 3mm x 3mm. Character of the wound post debridement is stable (90952), The patient was instructed on importance of proper wound care consisting of pressure reduction, maintainance of moist wound environment, and regular debridement of devitilized tissue, The patient is to cleanse the wound with warm soapy water/peroxide/saline or betadine BID based on product availability , The patient is to apply Antibiotic Oint. to the wound and cover with a DSD , The patient was instructed to change dressings according to orders or PRN saturation, leaks , The patient was instructed to monitor and report any signs or symptoms of infection or any untoward reactions, The patient is to cont the local wound care as directed till condition is completely healed.? * Procedure Codes:?07455 DEBRI DE SKIN/TISSUE, Modifiers: XS * Preventive Medicine:? ??Counseling:?Ulcer:?A detailed plan of care was reviewed with the patient. We emphasized the fact that the patient takes on an active participating role in the treatment process and emphasized to them that they are an included, valued, and important member of the wound healing team in order to reach an expedient successful outcome. The patient agreed to follow their medically recommended diet while increasing their protein intake if safely able to do so, maintain proper bodily hydaration, abide by weight-bearing restrictions at all times, quit all current smoking habits if any, and diligently follow any/all dressing change instructions. It was clearly made known to the patient that if they fail to do their part, they will likely extend their course of treatment as well as possibly increase their risk of adverse events including amputation. The patient was instructed on importance of proper wound care consisting of pressure reduction, and proper maintainance of a moist wound environment. The patient is to cleanse the wound with warm soapy water/peroxide/saline, or betadine BID based on product availability. The patient is to apply ( Neosporin, Polysporin, or Triple, ) Antibiotic to the wound and cover with a DSD as directed. The patient was instructed to change dressings according to orders, or PRN saturation, leaks. The patient was instructed to monitor and report any signs or symptoms of infection or any untoward reactions. Precautions Taken: Offloading/Pressure reduction via rest/ limited activity to essential to daily life only, cane/ crutches/ walker/ knee scooter/ wheel chair, shoe modification, accommodative padding, sharp debridement, and take/apply medication as directed. THE GOALS of wound debridement to remove devitilized tissue, decrease risk for infection, promote wound healing and prevent further complication were discussed/reviewed. Debridement frequency as indicated.? * Follow Up:?as scheduled * Images: * Sign off status: Completed true * Provider:?Cathy Brown, NICKO Date:? Generated for Moreno acuna/Che/Ousmane on:?09/13/2024 01:15 PM EST History and Physical Notes * HPI (History of Present Illness) Category Sub-Category Detail Notes Category Not es Skin problems Location: Left, 1st, Toe(s) Examination Category Sub-Category Detail Notes Category Not es Neurological SENSORY: Neurological exa m demonstrates, reduced light touch sensation, reduced sharp/dull pin prick discrimination , B/L, 5.07 monofilament test performed at plantar aspects of 5 varied sites per foot shows sensation, reduced , B/L Dermatologic ULCER: LOCATION, medial TA LEFT, SIZE, 7mm X 2mm X 3mm, BASE, fibro-granular, RIM, hyperkeratotic, UNDERMINING, mild, TRACKING, Sub Q with Fat layer exposed, DRAINAGE, serosanguineous, moderate, NECROTIC TISSUE, loosely-adherent, yellow slough, MALODOR, absent, CALOR, absent, ERYTHEMA, absent Ophthalmology Referral DIABETES EYE EXAM Diabeti c Retinopathy Screening:: Yes Findings of Diabetic Eye Exam:: no retin opathy Vascular DP PULSES (B): 1/4, B/L PT PULSES (B): 1/4, B/L CAPILLARY FILL TIME: immediate, all digi ts, B/L TEMPERTURE GRADIENT (C): normal, warm to cool, proximal to distal, B/L, B/L
--- OUTSIDE RECORDS SUMMARY | 2024-09-13 13:17 | XMS_ITS ---
Author Organization [facility] Address [address] [place] [address] Care Team Providers Care Keeper Helper Name Role Phone Turner Booker Primary Care Provider Cathy Lewis [phone] REASON FOR VISIT question Encounters Encounter Location Date Provider Diagnosis [facility] [address] [place] [address] 05/31/2024 Cathy Brown Plan Of Treatment Next Appt Details Provider Name:Cathy marcial, 09/25/2024 01:30:00 PM, [address] [place] [address] [place], [address], Provider Name:Cathy marcial, 11/30/2024 11:15:00 AM, [address] [place] [address] [place], [address], Progress Notes * Edwardo VELASQUEZDOB:[birth year] (88 yo M)Acc No.[id number]:05/31/2024 Patient:?Edwardo Velasquez :1935???Age:88 Y???Sex:Male Address:[address] [place] [address], [address] * true * Date:? Generated for Printi ng/Faxing/eTransmitting on:?09/13/2024 01:16 PM EST
--- OUTSIDE RECORDS SUMMARY | 2024-09-13 13:17 | XMS_ITS | Continuity of Care Document ---
Author Organization [facility] Address [address] [place] [address] Phone Care Team Providers Care Production Gear Cutter Name Role Phone Nash GREENE, RVT, JULISA, Homer Unavailable U navailable Allergies, Adverse Reactions, Alerts Substance Reaction Status Criticality No Known Allergies Active No Inform ation Medications Medication Instructions Dosage Effective Dates (start - stop) Status Comments ZOCOR (unknown strength) Not Available - Active Eliquis 2.5 mg tablet - Active GLIPIZIDE (unknown strength) Not Available - Active LISINOPRIL (unknown strength) Not Available - Active TORSEMIDE (unknown strength) Not Available - Active aspirin 81 mg tablet,delayed release - Active Vasculera 630 mg tablet - Active SPIRIVA RESPIMAT (unknown strength) Not Available - Active PROAIR DIGIHALER (unknown strength) Not Available - Active Procedures Procedure Date Office/Outpt E&M Established 15 Mins Sep Duplex Scan-extrem Veins; [facility]/ 24 Office/Outpt E&M Established 15 Mins Feb Duplex Scan-extrem Veins; [facility]/ Office/Outpt E&M Established 15 Mins Jan Advance Directives Directive Yes / No Effective Date File Name Other Directive No N/A N/A WARNING:The information contained in this section is historical and is provided for information only and does not constitute a legal document or any assurance that the information is still accurate. Please verify the information with the lopez of the legal document before using it for clinical purposes. Encounters Encounter Description Practice Location Reason(s) For Visit Diagnoses Date Provider Providers Copied on Encounter Office/Outpt E&M Established 15 Mins [facility], [address] [place] [address] Dr Kumar [address], [id number], [place] tel:[phone] [facility] [place] [facility] [place] Localized edemaRestless legs syndromeType 2 diabetes mellitus without complicationsEs sential (primary) hypertension 4 Nash GREENE RVT, JULISA Coronel. [address] [place] [address], [place], [place], [id number] , [place]. tel:[phone] Referring Provider: Turner Booker MD, [address] [place] [address], [address]. tel:[phone] [facility], [address] [place] [address] Dr Kumar [address] Román [place], [id number], [place] tel:[phone] [facility] [place] Pain in right leg 4 Nash GREENE RVT, JULISA Homer. [address] [place] [address], [place], [place], [id number] , [place]. tel:[phone] Referring Provider: Turner Booker MD, [address] [place] [address], [address]. tel:[phone] Office/Outpt E&M Established 15 Mins [facility], [address] [place] [address] Dr Kumar [address] Román [place], [id number], [place] tel:[phone] [facility] [place] [facility] [place] Chronic venous hypertension w oth comp of r low extrem 3 Brandyn GREENE FACS RVT JULISA Queen. [address] [place] [address], [place], [address], [place]. tel:[phone] Referring Provider: Brittany Ahumada MD FACS RVT JULISA, [address] [place] [address], [place], [address]. tel:[phone] [facility], [address] [place] [address] Dr Kumar [address] Román [place], [id number], [place] tel:[phone] CVR - [facility] Chronic venous hypertension w oth comp of r low extrem 3 Brandyn GREENE FACS T RPVI Brittany Bret. [address] [facility], [place] [address], [place], [address], [place]. tel:[phone] Referring Provider: Brittany Ahumada MD [facility], [address] [place] [address], [place], [address]. tel:[phone] Office/Outpt E&M Established 15 Mins [facility], [address], [place], [id number], tel:[phone] CVR - [facility] Chronic venous hypertension w oth comp of r low extrem 3 Brandyn GREENE FACS T RPVI Brittany Queen. [address] [place] [address], [place] [address], [place], [address], [place]. tel:[phone] Referring Provider: Brittany Ahumada MD [facility], [address] [place] [address], [place], [address]. tel:[phone] Family History Family Member Type Diagnosis Age At Onset No Information Payers Payer name Insurance type Covered democrat ID Authoriza tishazia(s) Medicare ADAN HEWITT [id number] [facility] CI [id number] Social History Type Description Quantity Date Captured Comments Alcohol Use Details Unknown Caffeine Use Details Unknown Tobacco Use Status No Information Smoking Status Former Smoker Non-Smoking Tobacco Use Details : No Details Available : No Details Available Sex Male Vital Signs Date / Time: Height Weight BMI Pulse Rate Blood Pressure Temperature Respiratory Rate Body Surface Area Head Circumference Head Circ. Percentile Wt./Tomi. Percentile BMI percentile Pulse Ox Inhaled Ox 111.130 kg (245.00 lbs) 35.3 1 kg/m eter (2) 140/76 mm[Hg] Chief Complaint And Reason For Visit No Information Reason For Referral Reason For Referral No Information Plan Of Treatment Date Type Action Status Goal Diet education completed Goal Tobacco cessation counseling completed Goal Tobacco cessation counseling completed Goal Tobacco cessation counseling completed Referral Ordered: Weight management: Referral to physician timeframe: 3 Months (related to Body mass index (BMI) 35.0-35.9, adult) ordered History Of Present Illness Encounter Date Complaint History Of Prese nt Illness No Information Functional Status Date Functional Assessmen t No Information Instructions Date Instruction Additional Infor mation Diet education Related to Body mass index (BMI) 35.0-35.9, adult Giving Encouragement to exercise Related to Body mass index (BMI) 35.0-35.9, adult Lifestyle education Related to B vivian mass index (BMI) 35.0-35.9, adult Patient education booklet given Related to Localized edema Pre and post instruc tions reviewed and provided Related to Localized edema Patient education booklet given Related to Chrn Vns Hyprtnsn w/Compl (Pain Edema Swelling); RIGHT Assessments Type Assessment Date No Information Patient Care Teams Name Effective Dates (start - stop) Status Members No Information
--- OUTSIDE RECORDS SUMMARY | 2024-09-13 13:17 | XMS_ITS | Data Portability ---
Author Organization [place] - [facility], Allergy Address [address] [place] [address] Care Team Providers Care [employer]or Name Role Phone INÉS HARRELL Primary Care Provider Assessment Encounter Date Assessment Date Assessment LastModified by Organization Details LastModified Time 01/07/2024 01/07/2024 88-year-old male presents for updated hearing test. Otologic exam is unremarkable. 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 He was provided a copy of his hearing test which she will take to his hearing aid provider for adjustments if needed. Follow-up in 1 to 2 years or sooner for acute changes in hearing. 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 There was a small crust along the right anterior nasal septum. He will continue saline spray 3-4 times during the day and the saline gel. Avoid nose blowing or nose picking. Continue humidifier on his CPAP. [email or web address] Not available 04/10/2024 10:30:23 2024 2024 Patient with atrial fibrillation currently on antiplatelet and anticoagulation therapy. He has been doing some saline gel at night but really no saline solution during the day. Most the time he does the gel when he is having trouble. Examination shows crusting along the right anterior septum without any discrete bleeding source. Last episode was over a week ago. We discussed the need to try to avoid the episodes from occurring which is difficult on these medications. He will try to be more consistent using saline solution 4 times daily and K-Y jelly in the nose at night. He can use a cottonball with Afrin on it if he has any active bleeding. I would like to try to avoid cautery given the high risk of recurrence. We can reconsider if persists or worsens [email or web address] Not available 2024 13:27:02 Plan of Treatment Reminders Order Date Submit Date Provider Last Modified By Organization Details Last Modified Time Details Appointments Establish ed 15 2024 11:30A M GEMMA JORDAN PA-C Not available Not available Not available Lab None recorded. Referral None recorded. Procedures None recorded. Surgeries None recorded. Imaging None recorded. Medication Orders None recorded. Patient TargetsNo targets recorded. Patient Instructions Encounter Date Encounter Id Patient Instructions Last Modified By Organization Details Last Modified Time 04/10/2024 [id number] nosebleed information [email or web address] Not available 04/10/2024 10:30:29 2024 [id number] nosebleed information mary Not available 2024 13:27:02 Reason for Referral None Reported. Results Created Date Observation Date Name Description Value Unit Range Abnormal Flag Note LastModifiedBy Organization Detail LastModifiedTime 04/04/20 24 10/24/2021 imagi ng/di agnos tic resul t No observ ation record ed. [email or web address] Not Available 23:47:44 04/04/20 24 10/26/2018 imagi ng/di agnos tic resul t No observ ation record ed. [email or web address] Not Available 23:47:46 04/04/20 24 01/04/2023 imagi ng/di agnos tic resul t No observ ation record ed. [email or web address] Not Available 23:47:57 04/04/20 24 01/07/2024 audio gram No observ ation record ed. [email or web address] Not Available 20:17:21 04/04/20 24 04/24/2020 imagi ng/di agnos tic resul t No observ ation record ed. [email or web address] Not Available 23:48:07 04/04/20 24 10/24/2021 audio gram No observ ation record ed. [email or web address] Not Available 23:48:12 04/04/20 24 01/04/2023 audio gram No observ ation record ed. [email or web address] Not Available 23:48:23 04/04/20 24 04/24/2020 audio gram No observ ation record ed. [email or web address] Not Available 23:48:33 Result Notes None recorded. Problems Name Problem SNOMED Code Status Onset Date Resolution Date Notes Provider Name and Address Organization Details Recorded Time Sensorine ural hearing loss 12944708 Active 2019 Sensorineu ral hearing loss; Location: bilateral CMS Risk: low risk CMS Treatment: new problem (to examiner): additional workup planned Lo cation: bilateral CMS Risk: low risk CMS Treatment: new problem (to examiner): additional workup planned Lo cation: bilateral CMS Risk: low risk CMS Treatment: new problem (to examiner): additional workup planned Lo cation: bilateral CMS Risk: low risk CMS Treatment: new problem (to examiner): additional workup planned Not Available [facility] 4 01:27:35 Sensorine ural hearing loss of bilateral ears 910719757 Active 2019 Sensorineu ral hearing loss, bilateral; Note: Date Diagnosed: 04/24/2020 9:54 AM (H90.3) Not Available [facility] 4 03:22:19 Bleeding from nose 147640229 Active 2023 KATE ESCOBAR MD [address] [address], [place], [address] , [facility] - [facility] 4 10:29:45 Obstructi ve sleep apnea syndrome 83175557 Active 2023 KATE ESCOBAR MD [address] [place] [address], [place], [address] , [facility] - [facility] 4 10:30:27 Problem Notes None recorded. Procedures Surgical History Date Name Laterality Status Provider Name and Address Organization Details Recorded Time 01/07/20 24 Air only Audio (34943) completed JESSICA LANE MA, CCC-A [address] [facility],[place] [address], [address], [place] - [facility] 01/07/2024 10:43:11 01/07/20 Tympanometry (65180) completed JESSICA LANE MA, [facility] [address] [facility] [address], [place], [address], [place] - [facility] 01/07/2024 10:43:37 01/07/20 SRT & Speech Recognition (58848) completed JESSICA LANE MA, [facility] [address] [facility] [address], [place], [address], [place] - [facility] 01/07/2024 10:43:29 Eye Surgery completed Leonie Cesar [place] - [facility] 01/07/2024 09:27:50 coronary artery bypass graft completed Leonie Cesar [place] - [facility] 01/07/2024 09:27:57 total knee replacement completed Leonie Cesar [place] - [facility] 01/07/2024 09:28:07 Imaging Results Imaging Date Name Status LastModified by [facility] Details LastModified Time 10/24/2021 imaging/diagno stic result completed Information not available 04/04/2024 23:47:44 10/26/2018 imaging/diagno stic result completed Information not available 04/04/2024 23:47:46 01/04/2023 imaging/diagno stic result completed Information not available 04/04/2024 23:47:57 01/07/2024 audiogram [email or web address] Information not available 04/09/2024 20:17:21 04/24/2020 imaging/diagno stic result completed Information not available 04/04/2024 23:48:07 10/24/2021 audiogram completed Information not available 04/04/2024 23:48:12 01/04/2023 audiogram completed Information not available 04/04/2024 23:48:23 04/24/2020 audiogram completed Information not available 04/04/2024 23:48:33 Procedure Notes None recorded. Medical Equipment None Reported. Allergies No known drug allergies Medications Name Sig Start Date Stop Date Status Note LastModified by Organization Details LastModified Time multivitam in tablet active Medication ID: [id number] Jose nd Name: multivitam in Send Method: E-Prescrib ed Subs Allowed: subs OK Medicat ionGeneric Name: multivitam in Not Available Not Available Not Available metformin 500 mg tablet active Medication ID: [id number] Jose nd Name: metformin Send Method: E-Prescrib ed Subs Allowed: subs OK Medicat ionGeneric Name: metformin Not Available Not Available Not Available nystatin 100,000 unit/mL oral suspension TAKE 5 ML BY MOUTH 4 TIMES PER DAY FOR 10 DAYS active Not Available Not Available No t Available torsemide 20 mg tablet TAKE 1 TABLET BY MOUTH EVERY DAY active Not Available Not Available No t Available lisinopril 20 mg tablet active Medication ID: [id number] Jose nd Name: lisinopril Send Method: E-Prescrib ed Subs Allowed: subs OK Special Instructio n: TAKE ONE TABLET BY MOUTH TWICE DAILY TWICE A DAY ORALLY 90 DAYS Medic ationGener icName: lisinopril Not Available Not Available Not Available Ama Low Dose Aspirin 81 mg tablet,del ayed release active Medication ID: [id number] Jose nd Name: Aspirin Low Dose Send Method: E-Prescrib ed Subs Allowed: subs OK Medicat ionGeneric Name: Aspirin Low Dose Not Available Not Available Not Available flaxseed oil 1,000 mg capsule active Medication ID: [id number] Jose nd Name: flaxseed oil Send Method: E-Prescrib ed Subs Allowed: subs OK Medicat ionGeneric Name: flaxseed oil Not Available Not Available Not Available glipizide ER 2.5 mg tablet, extended release 24 hr active Medication ID: [id number] Jose nd Name: glipizide Send Method: E-Prescrib ed Subs Allowed: subs OK Medicat ionGeneric Name: glipizide Not Available Not Available Not Available cephalexin 500 mg capsule TAKE 1 CAPSULE BY MOUTH 4 TIMES A DAY FOR 7 DAYS active Not Available Not Available No t Available chromium picolinate 200 mcg tablet active Medication ID: [id number] Jose nd Name: chromium picolinate Send Method: E-Prescrib ed Subs Allowed: subs OK Medicat ionGeneric Name: chromium picolinate Not Available Not Available Not Available furosemide 20 mg tablet 2019 active Medication ID: [id number] Dur ation Value: 30 Brand Name: furosemide Send Method: E-Prescrib ed Subs Allowed: subs [place] Special Instructio n: TAKE 1 TABLET BY MOUTH EVERY DAY Medica tionGeneri cName: furosemide Not Available Not Available Not Available Zocor 40 mg tablet active Medication ID: [id number] Jose nd Name: Zocor Send Method: E-Prescrib ed Subs Allowed: subs OK Medicat ionGeneric Name: Zocor Not Available Not Available Not Available Vitamin B-12 1,000 mcg tablet active Medication ID: [id number] Jose nd Name: Vitamin B-12 Send Method: E-Prescrib ed Subs Allowed: subs [place] Medicat ionGeneric Name: Vitamin B-12 Not Available Not Available Not Available lutein 20 mg capsule active Medication ID: [id number] Jose nd Name: lutein Sen d Method: E-Prescrib ed Subs Allowed: subs [place] Medicat ionGeneric Name: lutein Not Available Not Available Not Available ProAir HFA 90 mcg/actuat ion aerosol inhaler active Medication ID: [id number] Jose nd Name: ProAir HFA Send Method: E-Prescrib ed Subs Allowed: subs OK Medicat ionGeneric Name: ProAir HFA Not Available Not Available Not Available Symbicort 160 mcg-4.5 mcg/actuat ion HFA aerosol inhaler active Medication ID: [id number] Jose nd Name: Symbicort Send Method: E-Prescrib ed Subs Allowed: subs OK Medicat ionGeneric Name: Symbicort Not Available Not Available Not Available alpha lipoic acid 200 mg tablet active Medication ID: [id number] Jose nd Name: alpha lipoic acid Send Method: E-Prescrib ed Subs Allowed: subs OK Medicat ionGeneric Name: alpha lipoic acid Not Available Not Available Not Available Vasculera 630 mg tablet 2019 active Medication ID: [id number] Dur ation Value: 90 Brand Name: Vasculera Send Method: E-Prescrib ed Subs Allowed: subs [place] Special Instructio n: TAKE ONE TABLET BY MOUTH EVERY DAY Medica tionGeneri cName: Vasculera Not Available Not Available Not Available Eliquis 2.5 mg tablet active Medication ID: [id number] Jose nd Name: Eliquis Se nd Method: E-Prescrib ed Subs Allowed: subs OK Medicat ionGeneric Name: Eliquis Not Available Not Available Not Available Spiriva Respimat 2.5 mcg/actuat ion solution for inhalation active Medication ID: [id number] Bra nd Name: Spiriva Respimat S end Method: E-Prescrib ed Subs Allowed: subs OK Medicat ionGeneric Name: Spiriva Respimat Not Available Not Available Not Available Vitals Date Recorded Body height Body mass index (BMI) Body weight Provider Name and Address Organization Details Last Updated DateTime 04/10/2024 177.8 cm 34.4 kg/m2 933265.17 g Dmitriy Swain [place] - [facility] 04/10/2024 10:15:56 Social History None recorded. Functional Status None recorded. Mental Status None recorded. Family History Nothing Reported. Medical History Condition Response Diabetes Y Anemia Y Hypertension Y Sleep Disorder Y Past Encounters Encounter ID Performer Location Encounter Start Date Encounter Closed Date Diagnosis/Indication Diagnosis SNOMED-CT Code Diagnosis ICD10 Code Diagnosis Note [id number] GEMMA JORDAN PA-C [facility] [address] [address] 01/07/2024 09:16:28 01/07/2024 10:59:11 Sensorineural hearing loss of bilateral ears 683229484 H90.3 For both ears, normal hearing sloping to a severe-pro found SNHL. Good to fair speech clarity.Ty mpanograms : Type A for both ears. [id number] DOT CONCEPCION MD [facility] [address] [address] 01/07/2024 11:05:33 01/07/2024 11:17:11 Sensorineural hearing loss 63146510 H90.5 [id number] KATE ESCOBAR MD [facility] [address] [address] 04/10/2024 09:55:22 04/10/2024 10:34:30 Bleeding from nose 697631749 R04.0 f/u with Gemma in July Long-term current use of anticoagulant 563835779 Z79.01 Obstructiv e sleep apnea syndrome 21222042 G47.33 [id number] KATE ESCOBAR MD [facility] [address] [address] 2024 12:50:19 2024 13:31:57 Bleeding from nose 551200138 R04.0 Long-term current use of antiplatelet drug 2282033785 08140 Z79.02 Long-term current use of anticoagulant 872819668 Z79.01 Health Concerns Section Related Observation LastModified by Organization Detai ls LastModified Time None Recorded Concern Status LastModified by Organization Details LastModified Time None Recorded Advance Directives Directive None Recorded Payers Encounter Date Sequence Insurance Name Policy Number Policy Antonio Covered Member ID Antonio Member ID Guarantor Name 01/07/2024 1 [place]ICARE [place]: [facility] [place] Kecki [id number] [place] 01/07/2024 2 [facility] PLAN - PREFERRED (MEDICARE SUPPLEMENT) [id number] Edwardo J Kecki [id number] [place] Ke[place] 01/07/2024 1 [place]: [facility] G[facility] [place] Ke[place] [id number] [place] 01/07/2024 2 [facility] PL[facility] - PREFERRED (MEDICARE SUPPLEMENT) [id number] [place] Ke[place] [id number] 1 [place] Ke[place] 04/10/2024 1 [place] [facility] Science SERVICES [place] Kecki [id number] [place] Ke[place] 04/10/2024 2 [facility] PL[facility] - PREFERRED (MEDICARE SUPPLEMENT) [id number] [place] Ke[place] [id number] 1 Edwardo J Kecki 2024 1 MEDICARE B-[place]: [facility] [place] [id number] 6 [place] 2024 2 [facility] PLAN - PREFERRED (MEDICARE SUPPLEMENT) [id number] [place] Ke[place] [id number] 1 [place] Notes Date Note Type Note Provider Name and Address Organization Details Recorded Time 01/07/2024 text/html suspected adnnielle JORDAN PA-C [address] [address], [place], [address], [facility] - [facility] 01/07/2024 16:18:46 01/07/2024 text/html 88-year-old male presents for updated hearing test. History of moderate sensorineural hearing loss bilaterally. He has hearing aids which she is happy with. DOT CONCEPCION MD [address] [facility],[address] [place] [address], [place], [address], [place] - [facility] 01/07/2024 12:46:52 04/10/2024 text/html Hx of COPD/DRAKE a nd Afib on Eliquis. Intermittent epistaxis. Last 3-4 weeks ago Improved with lubricating gel. No CP but chronic SOB KATE MOSER MD [address] [facility],BHAK[facility], [place], [address], [place] - [facility] 04/10/2024 10:31:05 2024 text/html On Eliquis and A SA. last episode over 1 week agoHas not been doing saline spray KATE MOSER MD [address] [facility],[address] [address], [place], [address], [place] - [facility] 2024 13:27:23
--- OUTSIDE RECORDS SUMMARY | 2024-09-13 13:17 | XMS_ITS ---
Author Organization [facility] Address [address] [place] [address] Care Team Providers Care Senior Counsel Commercial Name Role Phone Turner Booker Primary Care Provider Cathy Lewis Unavailable [phone] Allergies No Known Allergies REASON FOR VISIT At Risk Footcare Medications Medication SIG (Take, Route, Frequency, Duration) Notes Start Date End Date Status Cinnamon Not-Taking Vitamin C Not-Taking Turmeric Not-Taking Keflex 500 MG 1 capsule Orally [...] Vitamin B12 Active Multivitamin Active Lutein Active Lipoic Acid Active Chromium Picolinate Active Flaxseed Oil Active Lisinopril Active glipiZIDE 2.5 mg Act iris Eliquis Active Torsemide 10 MG 1 tablet Orally Once a day Active Wixela Inhub Active Spiriva HandiHaler A ctive Albuterol Active Aspirin Active Social History Tobacco Use: Social History [...] ast year? No Points 0 Interpretation Negative Vital Signs Height 5 ft 10 in in 07/24/2024 Weight 242 lbs 07/24/2024 BMI 34.72 kg/m2 07/24/2024 Blood pressure systolic 135 mm Hg 07/24/20 24 Blood pressure diastolic 63 mm Hg 024 Encounters Encounter Location Date Provider Diagnosis [facility] [address] [address] 07/24/2024 Cathy Brown Type 2 diabetes mellitus with diabetic polyneuropathy E11.42 and Tinea unguium B35.1 Assessments Encounter Date Diagnosis (ICD Code) Assessment Notes Treatment Notes Treatment Clinical Notes Section Notes 07/24/2024 Type 2 diabetes mellitus with diabetic polyneuropathy (ICD-10 - E11.42) 07/24/2024 Tinea unguium (ICD-10 - B35.1) Plan Of Treatment Next Appt Details Follow Up: 2 Months, Reason: Provider Name:Cathy marcial, 09/25/2024 01:30:00 PM, [address] [place] [address], [phone], Provider Name:Cathy marcial, 11/30/2024 11:15:00 AM, [address] [place] [address], [id number], Procedure Notes * Category Sub-Category Detail Notes Debride Nail 6-10 Nail debridement Due to the cl inical pathology outlined in the exam findings, performance of this nail treatment is medically necessary as its management by an unskilled/untrained nonprofessional would put this patients foot and overall health at risk. Therefore, debridement to affected nail(s), as described in exam, was performed extensively to reduce/remove overall nail length, girth, thickness, subungual debris, and necrotic tissue, by manual and/or electrical means through the use of a nail nipper and/or dremel-type outer diameter grinder tool, to a more viable healthy nail plate or bed tissue 6-10 nails in total. Silver nitrate was used for any petechial bleeding as necessary. Definitive antifungal treatment options, both pharmaceutical and surgical, have been reviewed and discussed with the patient. The patient solely prefers the use of intermittent/as needed professional debridement services for their nail condition and understands the need for additional periodic treatments to maintain effectiveness in symptomatic relief - 68997 Keratoma Treatment Parring or Cutting o f Benign Hyperkeratotic Lesion(s) (-57) More than 4 Lesions - Due to the at risk nature of the patients medical condition as documented in the exam findings, performance of this keratoderma treatment is medically necessary as its management by an unskilled/untrained nonprofessional would put this patients foot and overall health at risk. Therefore, the benign hyperkeratotic lesions, ( 6) in total, locations as stated and described in the exam, were pared, and/or cut utilizing a sterile 15 blade, tissue nippers, and/or power dremel instrumentation - 62904 Progress Notes * Edwardo VELAS[birth year]DOB:[birth year] (88 yo M)Acc No.[id number]:07/24/2024 Progress Note Patient:?Edwardo VELASQUEZ Provider:?Cathy Brown DPM :1935???Age:88 Y???Sex:Male Klever e:07/24/2024 Address:[address] [place], [place] [id number] Pcp:Turner Booker Subjective: * Chief Complaints: * ???At Risk Footcare * HPI: ???At Risk footcare:?Pt States Last PCP Visit:?Date?03/01/2024 * ROS:?General/Constitutional:?Nausea?denies.?Vomiting?denies.?Hunger Thirst?denies.?Loss appetite?denies.?Chills?denies.?Fatigue?denies.?Fever?denies.?Night Sweats?denies.?Unexplained weight loss?denies.?Unexplained weight gain?denies.?HEENTM:?Dentures?denies.?Dizziness?denies.?Glasses/contacts?denies.?Retinopathy?den ies.?Blurred/double vision?denies.?TMJ?denies.?Discharge/drainage?denies.?Implants?denies.?Sore throat?denies.?Dental implants?denies.?Hard of hearing ?admits.?Difficulty chewing/swallowing/speaking?denies.?Nose bleeds?denies.?Sore mouth?denies.?Respiratory:?On O xygen?denies.?Pneumonia/pleurisy?denies.?Bronchitis?denies.?Emphysema?denies.?Co ughing?denies.?Cough blood?denies.?Shortness of breath?admits.?Wheezing?denies.?Cardiovascular:?Pacemaker?denies.?MVP?denies.?WPW?denies.?CHF?denies.?Heart attack?denies.?Septal defect?denies.?Rapid beat?denies.?Chest pain ?denies.?Atrial Fib.?denies.?Murmur/Palpitations?denies.?Gastrointestinal:?Hemorrhoids?denies.?Stomach/Abdominal pain?denies.?Dark blood stool?denies.?Irritable bowel ?denies.?Constipation?denies.?Diarrhea?denies.?Hematology:?Swelling?admits.?Clots?denies.?Varicose Veins?admits.?Bruising?admits, on anticoagulants.?Bleeding problem?admits, on anticoagulants.?Genitourinary:?Blood urine?denies.?Frequent/Painfu/urination/bladder control?denies.?Kidney stones?denies.?Infection (UTI)?denies.?Nephropathy?denies.?sex trans dis (STD)?denies.?Prostate?denies.?Musculoskeletal:?Hammertoes?admits.?Bunions?denies.?Back Pain?denies.?Muscle Cramps/ Resting?denies.?Muscle cramps / walking?denies.?Generalized aches and pains?admits.?Weakness?denies.?Integ.:?Campos?denies.?Scars?denies.?Corns/calluses?admits.?Ingrown nails?admits.?Painful nails?admits.?Open Sores?denies.?Rashes?denies.?Neurologic:?Difficulty sleeping?denies.?Brain disorder?denies.?Numbness?denies.?Balance t rouble?denies.?Confusion?denies.?Fainting/blackouts?denies.?Tingling?denies.?Kwesi mors?denies.? * Medical History:? 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 * Social History:?Tobacco Use:?Tobacco use other than smoking?Are you an other tobacco user??No ?Tobacco Control (Standard)?Tobacco use:?Former smoker ?Additional Findings: Tobacco non-user?Ex-cigarette smoker ???Drugs/Alcohol:?Drugs?Have you used drugs other than those for medical reasons in the past 12 months??No ???Miscellaneous:?Caffeine: yes, frequency:, 1-2 cups per day. ?Children: no. ?Exercise: yes, walking. ?Marital status: . ?Occupation: Retired [employer]. ???Drug/Alcohol:?AUDIT-C (Standard)?Did you have a drink containing alcohol in the past year??No ?Points?0 ?Interpretation?Negative * Medications:?TakingAlbuterol Spiriva HandiHaler Wixela Inhub Torsemide 10 MG Tablet 1 tablet Orally Once a day Aspirin Chromium Picolinate Flaxseed Oil Eliquis glipiZIDE 2.5 mg Lisinopril Lipoic Acid Lutein Multivitamin Vitamin B12 Vasculera Zocor 40 MG Tablet 1 tablet in the evening Orally Once a day Extra Depth Orthopedic Shoes (1 Pair) with Customized Heat Molded Multidensity Innersoles (3 Pair) as directed Dx: NIDDM/Polyneuropathy (E11.42), Hammertoe Foot Deformity (M20.41,M20.42), Preulcerative Skin Lesion(s) (L85.1 Losartan Potassium Taking Albuterol Taking Spiriva HandiHaler Taking Wixela Inhub Taking Torsemide 10 MG Tablet 1 tablet Orally Once a day Taking Aspirin Taking Chromium Picolinate Taking Flaxseed Oil Taking Eliquis Taking glipiZIDE 2.5 mg Taking Lisinopril Taking Lipoic Acid Taking Lutein Taking Multivitamin Taking Vitamin B12 Taking Vasculera Taking Zocor 40 MG Tablet 1 tablet in the evening Orally Once a day Taking Extra Depth Orthopedic Shoes (1 Pair) with Customized Heat Molded Multidensity Innersoles (3 Pair) as directed Dx: NIDDM/Polyneuropathy (E11.42), Hammertoe Foot Deformity (M20.41,M20.42), Preulcerative Skin Lesion(s) (L85.1 Taking Losartan Potassium Not-Taking/PRNFlax Seed Oil Furosemide 20 mg metFORMIN HCl 500 MG Tablet Orally Keflex 500 MG Capsule 1 capsule Orally every 12 hrs Turmeric Vitamin C Cinnamon Medication List reviewed and reconciled with the patientNot-Taking/PRN Flax Seed Oil Not-Taking/PRN Furosemide 20 mg Not-Taking/PRN metFORMIN HCl 500 MG Tablet Orally Not-Taking/PRN Keflex 500 MG Capsule 1 capsule Orally every 12 hrs Not-Taking/PRN Turmeric Not-Taking/PRN Vitamin C Not-Taking/PRN Cinnamon Medication List reviewed and reconciled with the patient * Allergies:?N.K.D.A.yes[Aller gies Verified] Objective: * Vitals:?Ht: 5 ft 10 in, Wt: 242, BMI: 34.72, Shoe size: 12, BP: 135/63 mm Hg, BS: 130, Wt-k.77 kg. * Examination: ???CQM Exceptions:: ?Hemoglobin A1c not performed?Ophthalmology Referral: ?DIABETES EYE EXAM?Neurological: ?SENSORY:? Neurological exam demonstrates, reduced light touch sensation, reduced sharp/dull pin prick discrimination , B/L, 5.07 monofilament test performed at plantar aspects of 5 varied sites per foot shows sensation, reduced , B/L.?Nails: ?NAILS are:?Elongated, overgrown, dystrophic, lytic, greater than 3mm thick, discolored and friable with crumbly malodorous subungual debris , with dull to no pain on palpation due to neuropathy , 1-5 B/L.?Dermatologic: ?SKIN FINDINGS:?Skin exam reveals Keratotic lesion(s) located at , TA , T2 , T5 , T7 , SUB MTH (s) , 1 , B/L.?Vascular: ?DP PULSES(B):?1/4, B/L.?PT PULSES(B):?1/4, B/L.?CAPILLARY FILL TIME:?immediate, all digits, B/L.?TEMPERTURE GRADIENT(C):?normal, warm to cool, proximal to distal, B/L, B/L.?Orthopedic: ?MUSCLE STRENGTH:?5/5 all groups in a symmetrical fashion, B/L.?DIGITAL DEFORMITIES:??Digital contracture, PIPJ, 2-5 B/L, incompl- reducible to push-up test, no over, nor underlapping, with evidence of shoe producing skin irritation.?FOOTWEAR:?worn, non-supportive, shoe gear properties exacerbate patient's foot/toe deformity.?General Examination: ?GENERAL APPEARANCE:?Reveals a pleasant, alert, well nourished, well- developed, well hydrated individual, who demonstrates proper attention to hygiene/body habitus, and is in no acute distress, Pt serves as own historian for office visit today.?ORIENTED:?person, place, and time.?FOOT EXAM:?Footwear Evaluation? Assessment: * Assessment: 1.?Type 2 diabetes mellitus with diabetic polyneuropathy - E11.42 (Primary)???2.?Tinea unguium - B35.1??? Plan: * Treatment: * Procedures:?Debride Nail 6-10:?Nail debridement?Due to the clinical pathology outlined in the exam findings, performance of this nail treatment is medically necessary as its management by an unskilled/untrained nonprofessional would put this patients foot and overall health at risk. Therefore, debridement to affected nail(s), as described in exam, was performed extensively to reduce/remove overall nail length, girth, thickness, subungual debris, and necrotic tissue, by manual and/or electrical means through the use of a nail nipper and/or dremel-type outer diameter grinder tool, to a more viable healthy nail plate or bed tissue 6-10 nails in total. Silver nitrate was used for any petechial bleeding as necessary. Definitive antifungal treatment options, both pharmaceutical and surgical, have been reviewed and discussed with the patient. The patient solely prefers the use of intermittent/as needed professional debridement services for their nail condition and understands the need for additional periodic treatments to maintain effectiveness in symptomatic relief - 44120.?Keratoma Treatment:?Parring or Cutting of Benign Hyperkeratotic Lesion(s)?(-57) More than 4 Lesions - Due to the at risk nature of the patients medical condition as documented in the exam findings, performance of this keratoderma treatment is medically necessary as its management by an unskilled/untrained nonprofessional would put this patients foot and overall health at risk. Therefore, the benign hyperkeratotic lesions, ( 6) in total, locations as stated and described in the exam, were pared, and/or cut utilizing a sterile 15 blade, tissue nippers, and/or power dremel instrumentation - 40251.? * Procedure Codes:?60035 DEBRI DE NAIL, 6 OR MORE, Modifiers: XS 39490 TRIM SKIN LESIONS, OVER 4, Modifiers: XS * Follow Up:?2 Months * Images: * Sign off status: Completed true * Provider:?Cathy Brown, DPBeto Date:?04/2024 Generated for Moreno acuna/Che/Ousmane on:?09/13/2024 01:17 PM EST History and Physical Notes * HPI (History of Present Illness) Category Sub-Category Detail Notes Category Not es At Risk footcare Pt States Last PCP Visit: Date: 4 Examination Category Sub-Category Detail Notes Category Not es Neurological SENSORY: Neurological exa m demonstrates, reduced light touch sensation, reduced sharp/dull pin prick discrimination , B/L, 5.07 monofilament test performed at plantar aspects of 5 varied sites per foot shows sensation, reduced , B/L Dermatologic SKIN FINDINGS: Skin exam reveal s Keratotic lesion(s) located at , TA , T2 , T5 , T7 , SUB MTH (s) , 1 , B/L Orthopedic FOOTWEAR: worn, non-suppor tive, shoe gear properties exacerbate patient's foot/toe deformity DIGITAL DEFORMITIES: Digital contracture , PIPJ, 2-5 B/L, incompl-reducible to push-up test, no over, nor underlapping, with evidence of shoe producing skin irritation MUSCLE STRENGTH: 5/5 all groups in a symmetrical fashion, B/L General Examination GENERAL APPEARANCE: Reveals a pleasant, alert, well nourished, well-developed, well hydrated individual, who demonstrates proper attention to hygiene/body habitus, and is in no acute distress, Pt serves as own historian for office visit today FOOT EXAM: Lower Extremity Neurological Exa m performed:: Yes ORIENTED: person, place, and t joe Footwear Evaluation Footwear Evaluation performe d:: Yes Ophthalmology Referral DIABETES EYE EXAM Procedure Perform ed:: Yes ?Date of Exam Performed: 08/17/2023 Diabetic Retinopathy Screening:: Yes Findings of Diabetic Eye Exam:: no retin opathy Vascular DP PULSES (B): 14, B/L PT PULSES (B): 1/4, B/L CAPILLARY FILL TIME: immediate, all digi ts, B/L TEMPERTURE GRADIENT (C): normal, warm to cool, proximal to distal, B/L, B/L Nails NAILS are: Elongated, overg rown, dystrophic, lytic, greater than 3mm thick, discolored and friable with crumbly malodorous subungual debris , with dull to no pain on palpation due to neuropathy , 1-5 B/L CQM Exceptions: Hemoglobin A1c not performed Reason:: No r jered specified
--- OUTSIDE RECORDS SUMMARY | 2024-09-13 13:17 | XMS_ITS | Clinical Summary ---
Author Organization [facility] Address [address] [facility] [address] [place] [address] Phone Care Team Providers Care Doughnut Icer Machine Name Role Phone Turner Booker MD Primary Care Provider [phone] Allergies No known active allergies Medications albuterol HFA (PROVENTIL HFA;VENTOLIN HFA) 108 (90 Base) MCG/ACT inhaler Inhale 2 puffs 03/24/2021 Active Alpha-Lipoic Acid 200 MG capsule Take 1 capsule by mouth 1 (one) time each day Active apixaban (ELIQUIS) 2.5 MG tablet Take 1 tablet by mouth in the morning and 1 tablet in the evening. Active cyanocobalamin (VITAMIN B-12) 1000 MCG tablet Take 1,000 mcg by mouth 1 (one) time each day Active Flaxseed, Linseed, 1200 MG capsule Take 1,200 mg by mouth Active lisinopril 20 MG tablet Take 20 mg by mouth in the morning and 20 mg in the evening. Active simvastatin (ZOCOR) 40 MG tablet Take 40 mg by mouth every night Active aspirin (ST LUBA) 81 MG EC tablet Take 81 mg by mouth 1 (one) time each day Active multivitamin (THERAGRAN) tablet Take 1 tablet by mouth 1 (one) time each day Active amoxicillin (AMOXIL) 500 MG tablet Take 1 tablet by mouth in the morning and 1 tablet in the evening. 04/30/2022 Active glipiZIDE (GLUCOTROL) 5 MG tablet Take 5 mg by mouth in the morning and 5 mg in the evening. Take before meals. Active torsemide (DEMADEX) 5 MG tabletIndicatio ns:Hypertension Take 1 tablet (5 mg total) by mouth 1 (one) time each day 90 tablet 3 01/13/2023 Active Active Problems Problem Noted Date Diagnosed Date Essential hypertension 08/24/2020 Overview (04/08/2022): Last Assessment & Plan: Blood pressure well controlled with adjustments made by his PCP team. Continue current treatment plan with diuretic, ROSALIA inhibitor. Weight loss and increased exercise will also help his blood pressure. History of anemia 01/24/2018 Mixed hyperlipidemia 01/24/2018 Overview (04/08/2022): Last Assessment & Plan: Well controlled lipid profile. Continue statin at current dose. Type 2 diabetes mellitus 01/24/2018 Tachycardia 01/24/2018 Overview (04/08/2022): 01/2017 Metoprolol Family History Medical History Relation Comments Cancer Brother Diabetes Brother Heart disease Father Hypertension Father Stroke Father Diabetes Mother Hypertension Mother Relation Status Comments Brother Father Mother Social History Tobacco Use Types Packs/Day Years Used Date Smoking Tobacco: Former Cigarettes Smokeless Tobacco: Never Tobacco Cessation:Counseling Given: Not Answered Alcohol Use Standard Drinks/Week Comments Yes 0 (1 standard drink = 0.6 oz pur e alcohol) Sex and Gender Information Value Date Recorded Sex Assigned at Not on file Legal Sex Male 11:12 AM EDT Gender Identity Not on file Sexual Orientation Not on file Last Filed Vital Signs Vital Sign Reading Time Taken Comments Blood Pressure 142/70 12/30/2022 4:21 PM EDT Pulse 84 12/30/2022 4:21 PM EDT Temperature - - Respiratory Rate - - Oxygen Saturation 97% 12/30/2022 4:21 PM EDT Inhaled Oxygen Concentration - - Weight 113 kg (249 lb) 12/30/2022 4:21 PM EDT Height - - Body Mass Index - - Plan of Treatment Health Maintenance Due Date Last Done Comments Pneumococcal Vaccine: 65+ Years (2 of 2 - PPSV23 or PCV20) 02/14/2015 12/20/2014, 07/16/2011, 08/23/2001 Diabetes: Hemoglobin A1C 02/03/2022 Diabetes: Ophthalmology Exam 02/03/2022 Diabetes: Pedal Pulse Checked 02/03/2022 Diabetes: Sensory Foot Exam 02/03/2022 Diabetes: Visual Foot Exam 02/03/2022 Influenza Vaccine (#1) 2024 3, 04/16/2022, 05/16/2021, Additional history exists Hepatitis B Vaccine Aged Out No longe r eligible based on patient's age to complete this topic Insurance MEDICARE [facility] MEDICARE [facility] Care Teams Doughnut Icer Machine Relationship Specialty Start Date End Date Turner Booker MD [address] [place] [address] [place]AN [place] [id number] PCP - General Internal Medicine 02/03/22
== END 2024-09-13 11:26 | disposition home or self-care (01) ==
PROVIDERS: Visit Provider Internal Medicine Hypertension Specialist
DX: E11.22 Type 2 diabetes mellitus with diabetic chronic kidney disease (principal); N18.4 Chronic kidney disease, stage 4 (severe); N18.9 Chronic kidney disease, unspecified; D63.1 Anemia in chronic kidney disease; I12.9 Hypertensive chronic kidney disease with stage 1 through stage 4 chronic kidney disease, or unspecified chronic kidney disease; E87.5 Hyperkalemia
CPT/HCPCS: 99214

== ENCOUNTER → 2024-09-13 10:58 | Outpatient (BNVA) | payer MEDICARE, SELFPAY | PROVIDERS: Visit Provider Internal Medicine Hypertension Specialist | DX: E11.22 Type 2 diabetes mellitus with diabetic chronic kidney disease (principal); I12.9 Hypertensive chronic kidney disease with stage 1 through stage 4 chronic kidney disease, or unspecified chronic kidney disease; E87.5 Hyperkalemia; D63.1 Anemia in chronic kidney disease; N18.4 Chronic kidney disease, stage 4 (severe) | CPT/HCPCS: 99212 ==

== ENCOUNTER 2024-11-28 13:41 | Outpatient (REF) | payer MEDICARE, SELFPAY ==
--- OUTSIDE RECORDS SUMMARY | 2024-11-28 16:50 | XMS_ITS | Continuity of Care Document ---
Author Organization [facility] Address [address] [place]án [phone] Phone Care Team Providers Care Food And Nutrition Services Assistant Name Role Phone Alvin Girard Unavailable Unavailable [...] on Encounter Office/Outpt E&M Established 15 Mins- [place] & [place] [facility], [address] [place] [address] Dr Kumar 1000SuRomán millan MD, [id number], [place] tel:[phone] [facility] Restless legs syndromeEssent ial (primary) hypertensionLy mphedema, not elsewhere classifiedHere ditary lymphedemaChro armen venous hypertension (idiopathic) with other complications of bilateral lower extremityPerip heral vascular disease, unspecifiedTyp e 2 diabetes mellitus without complications 5 Ingrid Esquivel. [address] [place] [address], [facility] [place], [id number], [place]. tel:[phone] Referring Provider: Turner Booker MD, [address] [place] [address], [address]. 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 [address] [place] [address], [address], [place], [place], [id number], [place]. tel:[phone] Referring Provider: Turner Booker MD, [address] [place] [address], [address]. tel:[phone] Office/Outpt E&M Established 15 Mins [facility], [address] [place] [address] Dr Kumar 1000[facility] Román [place], [id number], [place] tel:[phone] [facility] Localized edemaRestless legs syndromeType 2 diabetes mellitus without complicationsE ssential (primary) hypertension 4 Nash GREENE, RVDulce, JULISA Coronel. [address] [place] [address], [facility] [place], [id number], [place]. tel:[phone] Referring Provider: Turner Booker MD, [address] [place] [address], [address]. tel:[phone] [facility], [address] [place] [address] Dr [address]Román [place], [id number], [place] tel:[phone] [facility] [place] Pain in right leg 4 Nash GREENE, RVT, [facility] Homer. [address] [place] [address], [facility] [place], [id number], [place]. tel:[phone] Referring Provider: Turner Booker MD, [address] [place] [address], [address]. tel:[phone] Office/Outpt E&M Established 15 Mins [facility], [address] [place] [address] Dr [address]Román [place], [id number], [place] tel:[phone] [facility] [place] Chronic venous hypertension w oth comp of r low extrem 3 Brandyn GREENE FACS T [facility] Brittany Queen. [address] [place] [address], [facility] [place], [address], [place]. tel:[phone] Referring Provider: Brittany Ahumada MD FACS RVT [facility], [address] [place] [address], [facility] [place], [address]. tel:[phone] [facility], [address] [place] [address] Dr [address]Román [place], [id number], [place] tel:[phone] [facility] [place] Chronic venous hypertension w oth comp of r low extrem 3 Brandyn GREENE FACS T [facility] Brittany Queen. [address] [place] [address], [facility] [place], [address], [place]. tel:[phone] Referring Provider: Brittany Ahumada MD FACS RVT RP, [address] [place] [address], [place], [address]. tel:[phone] Office/Outpt E&M Established 15 Mins [facility], [address] [place] [address] Dr [address]Román [place], [id number], tel:[phone] [facility] [place] Chronic venous hypertension w oth comp of r low extrem 3 Brandyn GREENE FACS T [facility] Brittany Queen. [address] [place] [address], [place] [address], [place], [address], . tel:[phone] Referring Provider: Brittany Ahumada MD FACS T [facility], [address] [place] [address], [place], [address]. tel:[phone] Family History Family Member Type Diagnosis Age At Onset No Information Payers Payer name Insurance type Covered constitution party ID Authoriza tion(s) Medicare ADAN HEWITT [id number] [facility] CI [id number] Social History Type Description Quantity Date Captured [...] Body mass index (BMI) 35.0-35.9, adult) ordered Appointment Edwardo Gallagher BOOKED History Of Present Illness Encounter Date Complaint [...]
--- OUTSIDE RECORDS SUMMARY | 2024-11-28 16:50 | XMS_ITS | Data Portability ---
Author Organization [place] - [facility], Allergy Address [address] [place] [address] Care Team Providers Care Sugar Presser Name Role Phone INÉS HARRELL Primary Care Provider [phone] Assessment Encounter Date Assessment Date Assessment LastModified [...] or sooner for acute changes in hearing. [email or web address] Not available 01/07/2024 11:09:20 04/10/2024 04/10/2024 Patient [...] or worsens [email or web address] Not available 2024 13:27:02 11/08/2024 11/08/2024 89-year-old male presents for reevaluation of epistaxis. He continues to have epistaxis but not on a frequent basis. As he needs to continue his anticoagulation would like to avoid cautery given his high likelihood of recurrent nosebleeds. He understands and agrees to this plan and will continue saline 4-6 times daily and saline jelly or K-Y jelly in the nose at night. Continue cool-mist humidifier. Continue epistaxis precaution. Follow-up as needed. [email or web address] Not available 11/08/2024 11:38:35 Plan of Treatment Reminders Order Date Submit Date Provider Last Modified By Organization Details Last Modified Time Details Appointments Hearing Test 2024 02:30P M Hearing Test Not available Not available Not available Establish ed 15 2024 03:00P M PENNY STEWART PA-C Not available Not available Not available Lab None recorded. Referral None recorded. Procedures None recorded. Surgeries None recorded. Imaging None recorded. Medication Orders None recorded. Patient TargetsNo targets recorded. Patient Instructions Encounter Date Encounter Id Patient Instructions Last Modified By Organization Details Last Modified Time 04/10/2024 [id number] nosebleed information [email or web address] Not available 04/10/2024 10:30:29 2024 [id number] nosebleed information [email or web address] Not available 2024 13:27:02 Reason for Referral None Reported. Results Created Date Observation Date Name Description Value Unit Range Abnormal Flag Note LastModifiedBy Organization Detail LastModifiedTime 04/04/2010/24/2021 imagi ng/di agnos tic resul t No observ ation record ed. [email or web address] Not Available 23:47:44 04/04/2010/26/2018 imagi ng/di agnos tic resul t No observ ation record ed. [email or web address] Not Available 23:47:46 04/04/20 01/04/2023 imagi ng/di agnos tic resul t No observ ation record ed. [email or web address] Not Available 23:47:57 04/04/20 24 01/07/2024 audio gram No observ ation record ed. [email or web address] Not Available 20:17:21 04/04/20 24 04/24/2020 imagi [...] Details Recorded Time Sensorine ural hearing loss 44904614 Active 2019 Sensorineu ral hearing loss; Location: [...] (to examiner): additional workup planned Not Available [facility] 4 01:27:35 Sensorine ural hearing loss of bilateral ears 218334647 Active 2019 Sensorineu ral hearing loss, bilateral; Note: Date Diagnosed: 04/24/2020 9:54 AM (H90.3) Not Available [facility] 4 03:22:19 Bleeding from nose 579948240 Active 2023 KATE ESCOBAR MD [address] [place] [address], [facility] [place], [address] , [facility] - [facility] 10:29:45 Obstructi ve sleep apnea syndrome 56376519 Active 2023 KATE ESCOBAR MD [address] [facility] [place],[address], [facility] [place], [address] , [facility] - [facility] 10:30:27 Problem Notes None recorded. Procedures Surgical History Date Name Laterality Status Provider Name and Address Organization Details Recorded Time 01/07/20 Air only Audio (37331) completed JESSICA LANE MA, CCC-A 100 [facility], [place], [address], [place] - [facility] 01/07/2024 10:43:11 01/07/20 Tympanometry (02346) completed JESSICA LANE MA, CCC-A [address] [facility] [place],[facility], [place], [address], [facility] - [facility] 01/07/2024 10:43:37 01/07/20 SRT & Speech Recognition (75423) completed JESSICA LANE MA, CCC-A 100 [facility] [address], [place], [address], [place] - [facility] 01/07/2024 10:43:29 Eye Surgery completed Leonie Cesar [place] - [facility] 01/07/2024 09:27:50 coronary artery bypass graft completed Leonie Cesar [place] - [facility] 01/07/2024 09:27:57 total knee replacement completed Leonie Cesar [place] - [facility] 01/07/2024 09:28:07 Imaging Results Imaging Date Name Status [facility] Details LastModified Time 10/24/2021 imaging/diagno stic result completed Information not available 04/04/2024 23:47:44 10/26/2018 imaging/diagno stic result completed Information not available 04/04/2024 23:47:46 01/04/2023 imaging/diagno stic result completed Information not available 04/04/2024 23:47:57 01/07/2024 audiogram completed [email or web address] Information not available 04/09/2024 20:17:21 04/24/2020 imaging/diagno [...] Details LastModified Time multivitam in tablet active Medicatio n ID: [id number] Br and Name: multivita min Send Method: E-Prescri bed Subs Allowed: subs OK Medica tionGener icName: multivita min Not Available Not Available Not Available amoxicilli n 500 mg capsule TAKE 4 CAPSULES 1 HOUR PRIOR TO PROCEDURE active Not Available Not Available No t Available metformin 500 mg tablet active Medicatio n ID: [id number] Br and Name: metformin Send Method: E-Prescri bed Subs Allowed: subs OK Medica tionGener icName: metformin Not Available Not Available Not Available nystatin 100,000 unit/mL oral suspension TAKE 5 ML BY MOUTH 4 TIMES PER DAY FOR 10 DAYS active Not Available Not Available No t Available torsemide 20 mg tablet TAKE 1 TABLET BY MOUTH EVERY DAY active Not Available Not Available No t Available lisinopril 20 mg tablet active Medicatio n ID: [id number] Br and Name: lisinopri l Send Method: E-Prescri bed Subs Allowed: subs OK Specia l Instructi on: TAKE ONE TABLET BY MOUTH TWICE DAILY TWICE A DAY ORALLY 90 DAYS Medi [facility] health[facility] ericName: lisinopri l Not Available Not Available Not Available Ama Low Dose Aspirin 81 mg tablet,del ayed release active Medicatio n ID: [id number] Br and Name: Aspirin Low Dose Send Method: E-Prescri bed Subs Allowed: subs OK Medica tionGener icName: Aspirin Low Dose Not Available Not Available Not Available flaxseed oil 1,000 mg capsule active Medicatio n ID: [id number] Br and Name: flaxseed oil Send Method: E-Prescri bed Subs Allowed: subs OK Medica tionGener icName: flaxseed oil Not Available Not Available Not Available glipizide ER 2.5 mg tablet, extended release 24 hr active Medicatio n ID: [id number] Br and Name: glipizide Send Method: E-Prescri bed Subs Allowed: subs OK Medica tionGener icName: glipizide Not Available Not Available Not Available cephalexin 500 mg capsule TAKE 1 CAPSULE BY MOUTH 4 TIMES A DAY FOR 7 DAYS active Not Available Not Available No t Available chromium picolinate 200 mcg tablet active Medicatio n ID: [id number] Br and Name: chromium picolinat e Send Method: E-Prescri bed Subs Allowed: subs OK Medica tionGener icName: chromium picolinat e Not Available Not Available Not Available ammonium lactate 12 % topical cream PLEASE SEE ATTACHED FOR DETAILED DIRECTION S active Not Available Not Available No t Available furosemide 20 mg tablet 2019 active Medicatio n ID: [id number] Du ration Value: 30 Brand Name: furosemid e Send Method: E-Prescri bed Subs Allowed: subs OK Specia l Instructi on: TAKE 1 TABLET BY MOUTH EVERY DAY Medic ationGene ricName: furosemid e Not Available Not Available Not Available Zocor 40 mg tablet active Medicatio n ID: [id number] Br and Name: Zocor Sen d Method: E-Prescri bed Subs Allowed: subs OK Medica tionGener icName: Zocor Not Available Not Available Not Available Vitamin B-12 1,000 mcg tablet active Medicatio n ID: [id number] Br and Name: Vitamin B-12 Send Method: E-Prescri bed Subs Allowed: subs OK Medica tionGener icName: Vitamin B-12 Not Available Not Available Not Available lutein 20 mg capsule active Medicatio n ID: [id number] Br and Name: lutein Se nd Method: E-Prescri bed Subs Allowed: subs OK Medica tionGener icName: lutein Not Available Not Available Not Available ProAir HFA 90 mcg/actuat ion aerosol inhaler active Medicatio n ID: [id number] Br and Name: ProAir HFA Send Method: E-Prescri bed Subs Allowed: subs OK Medica tionGener icName: ProAir HFA Not Available Not Available Not Available Symbicort 160 mcg-4.5 mcg/actuat ion HFA aerosol inhaler active Medicatio n ID: [id number] Br and Name: Symbicort Send Method: E-Prescri bed Subs Allowed: subs OK Medica tionGener icName: Symbicort Not Available Not Available Not Available alpha lipoic acid 200 mg tablet active Medicatio n ID: [id number] Br and Name: alpha lipoic acid Send Method: E-Prescri bed Subs Allowed: subs OK Medica tionGener icName: alpha lipoic acid Not Available Not Available Not Available Vasculera 630 mg tablet 2019 active Medicatio n ID: [id number] Du ration Value: 90 Brand Name: Vasculera Send Method: E-Prescri bed Subs Allowed: subs OK Specia l Instructi on: TAKE ONE TABLET BY MOUTH EVERY DAY Medic ationGene ricName: Vasculera Not Available Not Available Not Available Eliquis 2.5 mg tablet active Medicatio n ID: [id number] Br and Name: Eliquis S end Method: E-Prescri bed Subs Allowed: subs OK Medica tionGener icName: Eliquis Not Available Not Available Not Available Spiriva Respimat 2.5 mcg/actuat ion solution for inhalation active Medicatio n ID: [id number] Br and Name: Spiriva Respimat Send Method: E-Prescri bed Subs Allowed: subs OK Medica tionGener icName: Spiriva Respimat Not Available Not Available Not Available Vitals Date Recorded Body height Body mass index (BMI) Body weight Provider Name and Address Organization Details Last Updated DateTime 11/08/2024 177.8 cm 34.4 kg/m2 365944.17 g Carlo Fowler [place] [facility] 11/08/2024 11:16:41 Date Recorded Body height Body mass index (BMI) Body weight Provider Name and Address Organization Details Last Updated DateTime 04/10/2024 177.8 cm 34.4 kg/m2 668020.17 g Dmitriy Swain [facility] 04/10/2024 10:15:56 Social History None recorded. Functional Status None recorded. Mental Status None recorded. Family History Nothing Reported. Medical History Condition Response Diabetes Y Anemia Y Hypertension Y Sleep Disorder Y Past Encounters Encounter ID Performer Location Encounter Start Date Encounter Closed Date Diagnosis/Indication Diagnosis SNOMED-CT Code Diagnosis ICD10 Code Diagnosis Note [id number] GEMMA JORDAN PA-C [facility] [address] [address] 01/07/2024 09:16:28 01/07/2024 10:59:11 Sensorineural hearing loss of bilateral ears 603758427 H90.3 For both ears, normal hearing sloping to a severe-pro found SNHL. Good to fair speech clarity.Ty mpanograms : Type A for both ears. [id number] DOT CONCEPCION MD [facility] [address] [address] 01/07/2024 11:05:33 01/07/2024 11:17:11 Sensorineural hearing loss 07902730 H90.5 [id number] KATE ESCOBAR MD [facility] [address] [address] 04/10/2024 09:55:22 04/10/2024 10:34:30 Bleeding from nose 615065616 R04.0 f/u with Gemma in July Long-term current use of anticoagulant 696023259 Z79.01 Obstructiv e sleep apnea syndrome 26258388 G47.33 [id number] KATE ESCOBAR MD [facility] [address] [address] 2024 12:50:19 2024 13:31:57 Bleeding from nose 624299509 R04.0 Long-term current use of antiplatelet drug 1004769936 60565 Z79.02 Long-term current use of anticoagulant 488897013 Z79.01 [id number] KATE ESCOBAR MD [facility] [address] [address] 11/08/2024 11:07:33 11/08/2024 12:36:44 Bleeding from nose 131182367 R04.0 Health Concerns Section Related Observation LastModified by Organization Detai ls LastModified Time None Recorded Concern Status LastModified by Organization Details LastModified Time None Recorded Advance Directives Directive None Recorded Payers Encounter Date Sequence Insurance Name Policy Number Policy Antonio Covered Member ID Antonio Member ID Guarantor Name 01/07/2024 1 [place] [employer] [place] J Kecki [id number] 6 [place] Ke[place] 01/07/2024 2 [facility] - PREFERRED (MEDICARE SUPPLEMENT) [id number] [place] J Kecki [id number] 1 [place] J Ke[place] 01/07/2024 1 [place] [employer] [place] J Kecki [id number] 6 [place] J Kecki 01/07/2024 2 [facility] PL[facility] - PREFERRED (MEDICARE SUPPLEMENT) [id number] [place] J Kecki [id number] 1 [place] Ke[place] 04/10/2024 1 [place] [employer] [place] Ke[place] [id number] 6 [place] Ke[place] 04/10/2024 2 [facility] PLAN - PREFERRED (MEDICARE SUPPLEMENT) [id number] Edwardo J Enmanuelcki [id number] 1 [place] J Kecki 2024 1 [place] [employer] Edwardo J Kecki [id number] 6 [place] J Kecki 2024 2 [facility] - PREFERRED (MEDICARE SUPPLEMENT) SUPP1 [place] J Enmanuelcki [id number] 1 [place] J Kecki 11/08/2024 1 [place] [facility] SERVICES [place] J Ke[place] [id number] 6 [place] J Ke[place] 11/08/2024 2 [facility] PLAN - PREFERRED (MEDICARE SUPPLEMENT) [id number] [place] J Enmanuelcki [id number] 1 Edwardo J Anai Notes Date Note Type Note Provider Name and Address Organization Details Recorded Time 01/07/2024 text/html suspected dannielle JORDAN PA-C [address] [place] [address], [place], [address], [place] - [facility] 01/07/2024 16:18:46 01/07/2024 text/html 88-year-old male presents for updated hearing test. History of moderate sensorineural hearing loss bilaterally. He has hearing aids which she is happy with. DOT CONCEPCION MD [address], [place], [address], [place] [facility] 01/07/2024 12:46:52 04/10/2024 text/html Hx of COPD/DRAKE a nd Afib on Eliquis. Intermittent epistaxis. Last 3-4 weeks ago Improved with lubricating gel. No CP but chronic SOB KATE MOSER MD [address] [facility], [place], [address], [place] [facility] 04/10/2024 10:31:05 2024 text/html On Eliquis and A SA. last episode over 1 week agoHas not been doing saline spray KATE MOSER MD [address], [place], [address], [place] [facility] 2024 13:27:23 11/08/2024 text/html 89-year-old male presents for reevaluation of epistaxis. Recently evaluated by Dr. Moser who recommended increased saline and Afrin as needed. He has had a nosebleed about once a month lasting less than 20 minutes. Most recently was yesterday. Continues anticoagulation and daily aspirin for A-fib. KATE MOSER MD [address], [place], [address], [place] [facility] 11/08/2024 12:19:51
--- OUTSIDE RECORDS SUMMARY | 2024-11-28 16:50 | XMS_ITS | Clinical Summary ---
Author Organization [facility] Address [address] [facility] [address] [place] [address] Phone Care Team Providers Care Occupational Medicine Officer Name Role Phone Turner Booker MD Primary Care Provider [phone] Allergies No known active allergies Medications albuterol [...] Due Date Last Done Comments Pneumococcal Vaccine: 50+ Years (2 of 2 - PPSV23) 02/14/2015 12/20/2014, 07/16/2011, 08/23/2001 Diabetes: Hemoglobin A1C 02/03/2022 Diabetes: Ophthalmology Exam 02/03/2022 Diabetes: Pedal Pulse Checked 02/03/2022 Diabetes: Sensory Foot Exam 02/03/2022 Diabetes: Visual Foot Exam 02/03/2022 Influenza Vaccine (Season Ended) 2025 05/17/2023, 04/16/2022, 05/16/2021, Additional history exists Hepatitis B Vaccine Aged Out No longe r eligible based on patient's age to complete this topic Insurance Medicare [facility] Care Teams Occupational Medicine Officer Relationship Specialty Start Date End Date Turner Booker MD [address] [place] [address] ADAN Cary [id number] PCP - General Internal Medicine 02/03/22
--- OUTSIDE RECORDS SUMMARY | 2024-11-28 16:50 | XMS_ITS | Clinical Summary ---
Author Organization [address] [facility] Address [address] [place] [address] Phone Care Team Providers Care Chemistry Lab Instructor Name Role Phone Turner Booker MD Primary Care Provider [phone] Allergies Active Allergy Reactions Criticality Noted Date Comments Cortisone 11/11/2024 Pt and state he is not allergic to cortisone Medications torsemide (DEMADEX) 10 mg tablet Take 1 Tablet by mouth daily. Active dietary supplement capsule Take 630 mg by mouth daily. Active tiotropium (SPIRIVA RESPIMAT) 2.5 mcg/actuation inhalation spray INHALE 2 PUFFS BY MOUTH ONCE DAILY FOR BRONCHOSPASM PREVENTION WITH COPD 06/13/20 24 Active albuterol HFA (PROAIR HFA ; PROVENTIL HFA ; VENTOLIN HFA) 90 mcg/actuation inhaler Inhale 2 Puffs into the lungs every 4 hours as needed for Cough or Wheezing. 03/24/20 21 Active lisinopriL (PRINIVIL,ZEST RIL) 20 mg tablet Take 20 mg by mouth 2 times daily. Active alpha lipoic acid 200 mg capsule Take 1 Cap by mouth daily. Active flaxseed oiL oil Take 1,200 mg by mouth daily. Active multivit with minerals/lutei n (MULTIVITAMIN 50 PLUS ORAL) TAKE 1 TABLET BY MOUTH ONCE DAILY FOR VITAMIN SUPPLEMENTATION 04/27/20 24 Active aspirin 81 mg EC tablet Take 1 Tab by mouth daily. Active glipiZIDE (GLUCOTROL XL) 2.5 mg 24 hr tablet Take 2 Tablets by mouth daily. Active simvastatin (ZOCOR) 40 mg tablet Take 40 mg by mouth at bedtime. Active CHROMIUM PICOLINATE ORAL Take 800 mg by mouth. Active apixaban (ELIQUIS) 2.5 mg tablet Take 1 tablet (2.5 mg total) by mouth 2 (two) times a day. 180 tablet 2 11/03/19 25 Active apixaban (ELIQUIS) 2.5 mg tablet Take 1 tablet (2.5 mg total) by mouth 2 (two) times a day. 180 tablet 1 06/21/20 24 025 Discontin ued(Reord er) Active Problems Problem Noted Date Diagnosed Date Atrial fibrillation ([facility] V24, [facility] V28) 0 12/19/2021 Overview (07/12/2024): Last Assessment & Plan: Heart rate controlled with no need for rate control medication. On reduced dose Eliquis. Assessment & Plan (09/11/2024 4:55 PM EST): Heart rates in normal range without requirement of rate control medications. He is asymptomatic. Will continue monitor. Atrial flutter (CMS/HCC V24, [facility] V28) 2020 Overview (07/12/2024): Dose adjusted apixaban Normal LVEF [...] his newly diagnosed COPD. Congestive heart failure (CMS/HCC V24, [facility] V 28) 08/24/2020 Overview (07/12/2024): Last Assessment & Plan: With preserved EF. Stable. On low-dose torsemide. Cardiac PYP scan negative. Assessment & Plan (09/11/2024 4:55 PM EST): Appears euvolemic. Continue low-dose torsemide. Coronary artery disease invo lving coronary bypass graft of [place] heart without angina pectoris 08/24/2020 Overview (07/12/2024): [...] Overview (07/12/2024): calcifying Type 2 diabetes mellitus wit h cataract ([facility] V24, [facility] V28) 01/24/2018 Diabetic cataract ([facility] V24, [facility] V28) 06/2018 DRAKE on CPAP 01/11/2018 Encounters Date Type Department Care Team Description 11/11/2024 6:38 PM EDT - 11/11/2024 10:08 PM EDT Emergency [facility] Emergency [address] [place] [address] Triston Mcclain MD Montano, Gary L, MD Epistaxis, recurrent (Primary Dx) Discharge Disposition: Home or Self Care 11/02/2024 Telephone [facility] [address] [place] [address] Chayo Xavier MD Med Refill (Eliquis 2.5 mg ) 09/11/2024 2:00 PM EST Office Visit [facility] [address] [facility] [address] [place] [address] Chayo Xavier MD Coronary artery disease involving coronary bypass graft of [place] heart without angina pectoris (Primary Dx); Persistent atrial fibrillation ([facility] V24, [facility] V28); Chronic diastolic congestive heart failure ([facility] V24, [facility] V28) from Last 3 Months Surgical History Surgery Date Site/Laterality Comments CORONARY ARTERY BYPASS GRAFT PROCEDURE: HISTORICAL CABG CATARACT EXTRACTION PROCEDURE: HISTORICAL CATARACT REMOVAL KNEE SURGERY PROCEDURE: HISTORICAL KNEE SURGERY; COMMENT: arthroplasty OTHER SURGICAL HISTORY PROCEDURE: [place] ANES HRT PERICARDIAL SAC& GRT VESLS W/O MAINFRAME PROGRAMMER OXT OTHER SURGICAL HISTORY PROCEDURE: [place] ANESTH OPEN/SURG ARTHRS TOTAL KNEE ARTHROPLASTY; COMMENT: 2 surgeries Medical History Medical History Date Comments DRAKE on CPAP 01/11/2018 DX:DRAKE on CPAP History of anemia 01/24/2018 DX:History of anemia Tachycardia 01/24/2018 DX:Tachycardia; COMMENT: 01/2017 Metoprolol Tendinitis of shoulder 01/24/2018 DX:Tendin itis of shoulder; COMMENT: calcifying History of varicose veins 01/24/2018 DX:His tory of varicose veins Type 2 diabetes mellitus wit h cataract ([facility] V24, [facility] V28) 01/24/2018 DX:Type 2 diabetes mellitus with cataract (HCC) Hyperlipidemia 01/24/2018 DX:Hyperlipidemi a; COMMENT: CABG Diabetic cataract ([facility] V 24, [facility] V28) 01/24/2018 DX:Diabetic cataract ([facility]) Heart disease DX:Heart disease Diabetes ([facility] V24, [facility] V28) DX:Diabetes (HCC) Hypertension DX:Hypertension Anemia DX:Anemia History of joint [...] Information Value Date Recorded Sex Assigned at Male 11/11/2024 7:08 PM EDT Legal Sex Male 9:04 PM EST Gender Identity Male 11/11/2024 7:08 PM EDT Sexual Orientation Straight 11/11/2024 7: 08 PM EDT Obstetrics History Last Filed Vital Signs Vital Sign Reading Time Taken Comments Blood Pressure 164/89 11/11/2024 8:01 PM EDT Pulse 59 11/11/2024 8:01 PM EDT Temperature 36.2 ??C (97.2 ??F) 11/11/2024 6:47 PM ED T Respiratory Rate 19 11/11/2024 6:47 PM EDT Oxygen Saturation 98% 11/11/2024 6:47 PM EDT Inhaled Oxygen Concentration - - Weight 109 kg (240 lb) 11/11/2024 4:10 PM EDT Height 177.8 cm (5' 10 ) 11/11/2024 4:10 PM EDT Body Mass Index 34.44 11/11/2024 4:10 PM EDT Plan of Treatment Upcoming Encounters Date Type Department Care Team (Late st Contact Info) Description 03/08/2025 1:00 PM EDT Office Visit [facility] [address] [facility] [address] [place] [address] Chayo Xavier MD [address] [facility] [address] [place] [address] Health Maintenance Due Date Last Done Comments Diabetes: Annual Foot Exam 1945 Diabetes: Annual Retina Eye Exam 1945 Depression Screening 07/25/2022 Falls Risk Assessment 07/25/2022 Social Influencers of Health Screening 07/25/2022 Diabetes: Blood Sugar Control Test (HGBA1C) 08/01/2022 Medicare Annual Wellness Visit 05/08/2023 05/08/2022 DTaP,Tdap,and Td Vaccines (3 - Td or Tdap) 12/20/2024 12/20/2014, 12/20/2014 Hypertension/CHF/CAD Annual BMP Blood Test 11/11/2025 11/11/2024, 02/10/2024, 02/10/2024 Cholesterol Screening (Lipid Panel) 02/09/2029 02/10/2024, 02/10/2024 Zoster Vaccines Completed 11/03/2021, 08/17, 06/02/2012 RSV Immunization Adult Patients Completed 05/31/2023 Influenza Vaccine Completed 10/05/2024, , 05/17/2023, Additional history exists Pneumococcal Vaccine: 50+ Years Completed 10/05/2024, 12/20/2014, 07/16/2011, Additional history exists COVID-19 Vaccine Completed 11/08/2024, 12/2022, 08/05/2021, Additional history exists HIB Vaccines Aged Out No longer eligi [...] patient's age to complete this topic Meningococcal B Vaccine Aged Out No l onger eligible based on patient's age to complete this topic RSV Immunization Patients Under 20 months Aged Out No longer eligible based on patient's age to complete this topic Varicella Vaccines Aged Out No longer eligible based on patient's age to complete this topic Procedures Procedure Name Priority Date/Time Associated Diagnosis Comments CBC WITH AUTO DIFFERENTIAL STAT 11/11/2024 6:24 PM EDT PROTHROMBIN TIME WITH INR STAT 11/11/2024 6:24 PM EDT BASIC METABOLIC PANEL STAT 11/11/2024 6:24 PM EDT CBC AND DIFFERENTIAL STAT 11/11/2024 6:24 PM EDT ECG 12-LEAD Routine 09/11/2024 2:24 PM EST Coronary artery disease involving coronary bypass graft of [place] heart without angina pectoris LIPID PANEL Routine 02/10/2024 from Last 3 Months or Most Recently Relevant to Health Maintenance Results * (ABNORMAL) CBC auto differential (11/11/2024 6:24 PM EDT) [facility] WBC 6.5 4.8 - 10.8 K/mcL LAB HEMETOLOGY METHOD 11/11/2024 6:54 PM EDT [facility] RBC 3.80(L) 4.50 - 5.50 M/mcL LAB HEMETOLOGY METHOD 11/11/2024 6:54 PM EDT [facility] Hemoglobin 10.7(L) 13.5 - 17.5 g/dL LAB HEMETOLOGY METHOD 11/11/2024 6:54 PM EDT [facility] Hematocrit 35.2(L) 42.0 - 54.0 % LAB HEMETOLOGY METHOD 11/11/2024 6:54 PM EDT [facility] MCV 93.4 79.0 - 98.0 FL LAB HEMETOLOGY METHOD 11/11/2024 6:54 PM EDT [facility] MCH 28.4 27.0 - 32.0 pcg LAB HEMETOLOGY METHOD 11/11/2024 6:54 PM EDT [facility] MCHC 30.4(L) 32.0 - 37.0 g/dL LAB HEMETOLOGY METHOD [facility]/11[facility]24 [facility] RDW 13.2 11.0 - 15.0 % LAB HEMETOLOGY METHOD 11/11/2024 6:54 PM EDT [facility] Platelets 174 130 - 400 K/mcL LAB HEMETOLOGY METHOD 11/11/2024 6:54 PM EDT [facility] MPV 10.7 7.0 - 11.0 FL LAB HEMETOLOGY METHOD 11/11/2024 6:54 PM EDT [facility] NRBC 0.0 <1.0 % LAB HEMETOLOGY METHOD 11/11/2024 6:54 PM EDT [facility] NRBC Absolute 0.00 <0.10 K/mcL LAB HEMETOLOGY METHOD 11/11/2024 6:54 PM EDT [facility] Neutrophils Relative 68.9 % LAB HEMETOLOGY METHOD 11/11/2024 6:54 PM EDT [facility] Lymphocytes Relative 16.6 % LAB HEMETOLOGY METHOD [facility]/11[facility]2024 6[facility] Monocytes Relative 10.0 % LAB HEMETOLOGY METHOD 11/11/2024 6:54 PM [facility] Eosinophils Relative 3.4 % LAB HEMETOLOGY METHOD 11/11/2024 6:54 PM EDT [facility] Basophils Relative 0.6 % LAB HEMETOLOGY METHOD 11/11/2024 6:54 [facility] Immature Granulocytes Relative 0.5 % LAB HEMETOLOGY METHOD 11/11/2024 6:54 PM [facility] Neutrophils Absolute 4.49 1.50 - 7.00 K/mcL LAB HEMETOLOGY METHOD 11/11/2024 6:54 PM EDT [facility] Lymphocytes Absolute 1.08 1.00 - 5.00 K/mcL LAB HEMETOLOGY METHOD 11/11/2024 6:54 PM EDT [facility] Monocytes Absolute 0.65 0.20 - 1.00 K/mcL LAB HEMETOLOGY METHOD 11/11/2024 6:54 PM [facility] Eosinophils Absolute 0.22 0.00 - 0.50 K/mcL LAB HEMETOLOGY METHOD 11/11/2024 6:54 PM EDT [facility] Basophils Absolute 0.04 0.00 - 0.20 K/[facility] LAB HEMETOLOGY METHOD 11/11/2024 6:54 PM EDT [facility] Immature Granulocytes Absolute 0.03 0.00 - 0.03 K/[facility] LAB HEMETOLOGY METHOD 11/11/2024 6:54 PM EDT [facility] Blood Venous blood specimen / Unknown Venipuncture / Unknown 11/11/2024 6:24 PM EDT 11/11/2024 6:39 PM EDT us Bradley Pearson MD LAB BLOOD ORDERABLES Final Res ult Performing Organization Address [facility]/ZIP Co de Phone Number [facility] [address] [place] [address], [place] [phone] * (ABNORMAL) Prothrombin time with INR (11/11/2024 6:24 PM EDT) Protime 17.1(H) 10.6 - 13.9 sec LAB COAGULATION METHOD 11/11/2024 6:57 PM EDT [facility] INR 1.4 LAB COAGULATION METHOD 11/11/2024 6:57 PM EDT [facility] Blood Venous blood specimen / Unknown Venipuncture / Unknown 11/11/2024 6:24 PM EDT 11/11/2024 6:39 PM EDT Bradley Pearson MD LAB BLOOD ORDERABLES Final Res ult [facility] [address] [place] [address], [place] [phone] * (ABNORMAL) Basic metabolic panel (11/11/2024 6:24 PM EDT) Sodium 137 133 - 145 mmol/L LAB CHEMISTRY METHOD 11/11/2024 7:08 PM EDT [facility] Potassium 4.7 3.5 - 5.5 mmol/L LAB CHEMISTRY METHOD 11/11/2024 7:08 PM [facility] Chloride 105 96 - 110 mmol/L LAB CHEMISTRY METHOD 11/11/2024 7:08 PM [facility] CO2 26 21 - 32 mmol/L LAB CHEMISTRY METHOD 11/11/2024 7:08 PM [facility] Anion Gap 6 3 - 11 LAB CHEMISTRY METHOD 11/11/2024 7:08 PM [facility] Glucose 119(H) 70 - 100 mg/dL LAB CHEMISTRY METHOD 11/11/2024 7:08 PM [facility] BUN 57(H) 5 - 25 mg/dL LAB CHEMISTRY METHOD 11/11/2024 7:08 PM [facility] Creatinine 2.15(H) 0.70 - 1.30 mg/dL LAB CHEMISTRY METHOD 11/11/2024 7:08 PM [facility] eGFR 29(L) >=60 mL/min/1. 73m2 LAB CHEMISTRY METHOD 11/11/2024 7:08 PM [facility] Comment:Calculation based on the??Chronic Kidney Disease Epidemiology Collaboration (CKD-EPI) equation refit??without adjustment for race. BUN/Creatinine Ratio 26.5 LAB CHEMISTRY METHOD 11/11/2024 7:08 PM [facility] Calcium 9.0 8.5 - 10.5 mg/dL LAB CHEMISTRY METHOD 11/11/2024 7:08 PM [facility] Blood Venous blood specimen / Unknown Venipuncture / Unknown 11/11/2024 6:24 PM EDT 11/11/2024 6:39 PM EDT us Bradley Pearson MD LAB BLOOD ORDERABLES Final Res ult [facility] [address] [place] [address], * ECG 12 lead (09/11/2024 2:24 PM EST) Ventricular Rate ECG 66 BPM GEMUSE Atrial Rate 66 BPM GEMUSE QRS Duration 90 ms GEMUSE Q-T Interval 418 ms GEMUSE QTc 438 ms GEMUSE R Dowling 121 degrees GEMUSE T Dowling -38 degrees GEMUSE ECG Interpretation Atrial fibrillation [...] PM EST Chayo Xavier MD ECG ORDERABLES Final Result GEMUSE * Lipid panel (02/10/2024) LDL/HDL Ratio 2 0 - 4 Triglycerides 63 0 - 150 mg/dL Cholesterol 121 0 - 200 mg/dL HDL 61 >=40 mg/dL LDL Cholesterol 48 0 - 100 mg/dL Blood Venous blood specimen / Unknown Historical Provider LAB BLOOD ORDERABLES Victoria l Result from Last 3 Months or Most Recently Relevant to Health Maintenance Insurance [facility] Care Teams Chemistry Lab Instructor Relationship Specialty Start Date End Date Turner Booker MD [address] [place] [address] [phone] PCP - General Internal Medicine 09/11/24
[2024-11-28 18:34] LABS: Hematocrit 31.6 % (42.0-52.0); Hemoglobin 9.8 g/dl (14.0-18.0); Mean Corpuscular Hemoglobin 28.7 pg (27.0-33.0); Mean Corpuscular Volume 92.4 fL (80.0-98.0); Mean Platelet Volume 10.3 fL (9.4-12.4); NRBC Pct Auto 0.3 /100WBC (0.0-0.2); Platelet Count 153 X10*3/uL (160-400); Red Blood Count 3.42 X10*6/uL (4.60-5.80); Red Cell Distribution Width 13.7 % (11.0-16.0); White Blood Count 6.2 X10*3/uL (4.8-10.8)
[2024-11-28 18:44] LABS: Anion Gap 15 (12-20); Blood Urea Nitrogen 59 mg/dL (9-16); Calcium 9.5 mg/dL (8.4-10.2); Carbon Dioxide 23 mmol/L (22-29); Chloride 107 mmol/L (96-108); Estimated Glomerular Filt Rate 31; Glucose Random 66 mg/dL (60-115); Potassium 5.6 mmol/L (3.3-5.1); Sodium 139 mmol/L (135-145)
== END 2024-11-28 13:42 | disposition home or self-care (01) ==
LOC: HO.HKASLDS 13:41
PROVIDERS: Visit Provider Internal Medicine Hypertension Specialist
DX: N18.4 Chronic kidney disease, stage 4 (severe) (principal); E87.5 Hyperkalemia
CPT/HCPCS: 36415; 80048; 85027

== ENCOUNTER 2024-12-06 10:03 | Outpatient (AMB) | payer MEDICARE, SELFPAY ==
[2024-12-06 10:06] VITALS: BP 142/64; PULSE 80; O2SAT 95; BMI 32.6
--- NOTE | 2024-12-06 10:06 | HO.NEPHOV_ITS ---
Vital Signs 12/06/24 10:06 Height 5 ft 10 in Weight 227 lb 8 oz BMI 32.6 BP 142/64 H Blood Pressure Location Lt brachial Position Sitting Pulse 80 Pulse Source Pulse Oximeter Pulse Oximetry (%) 95 Oxygen Delivery Method Room Air Intake Visit Reasons: 3mon follow-up w/labs Allergies No Known Allergies Allergy (Mild, Verified 12/06/24 10:10) Medication List - Last Reconciled 12/06/24 by Tyler Bautista MD albuterol sulfate 90 mcg/actuation 2 puffs inhalation Q6H PRN apixaban (Eliquis) 2.5 mg PO BID aspirin (Adult Low Dose Aspirin) 81 mg PO DAILY diosmin complex no.1 (Vasculera) 1 tab PO DAILY fluticasone propion-salmeterol 100-50 mcg/dose (Wixela Inhub) 1 inh inhalation Q12H glipizide 5 mg PO DAILY lisinopril 20 mg PO ONCE multivitamin 1 tab PO DAILY simvastatin (Zocor) 40 mg PO DAILY sodium zirconium cyclosilicate (Lokelma) 5 grams PO .twice a week tiotropium bromide 1.25 mcg/actuation (Spiriva Respimat) 2 puffs inhalation DAILY torsemide 10 mg PO DAILY vitamin B complex (B Complex-Vitamin B12 tablet) 1 tab PO DAILY HPI Comments Details: Edwardo is a pleasant elderly man with a history of longstanding diabetes mellitus hypertension with chronic disease. [facility] He has CKD with a baseline creatinine of around 2.2 mg/dL. He was accompanied by his family today. No specific complaints. He continues have leg edema. No shortness of breath. 12/08/23 ;Doing better;Torsemide was increased to 20 mg by cardiology;Creatinine is up to 2.6 02/02/2024. Overall doing well today. ; After lowering the torsemide to 10 mg serum creatinine is decreased to 2.2. ; He has lost about 1 lb since last visit. 05/10/24 ;Doing well. K and cr are up; No urinary sypmyoms 06/07/24 ;Tolerating lower dose of Lisniopril;;Cr improved;;On low K diet; K is normal 09/13/24 ;Still has dyspnea on exertion. Has lost about 5 lbs 12/06/24 Has had episodes of epistaxis Sometimes forgets to Lokelma Has lost 4-5 lbs Breathing is stable [facility] Social History Patient Tobacco Use Status: Former Tobacco user Physical Exam Vital Signs: Last Vital Signs Pulse 80 12/06/24 10:06 BP 142/64 H 12/06/24 10:06 Pulse Ox 95 12/06/24 10:06 Oxygen Delivery Method Room Air 12/06/24 10:06 BMI result Body Mass Index 32.6 Const General: comfortable Nutritional Appearance: well nourished Orientation/consciousness: patient oriented x3 HEENT Head: No normal to inspection Mouth: moist mucous membranes Neck Neck: Yes supple and Yes no JVD Resp Auscultation: clear to auscultation bilaterally and no rales Cardio Jugular venous distension: no JVD Palpation: no palpable S3 and no palpable S4 Heart sounds: no rubs GI Palpation (GI): Soft to palpation and nontender Percussion: No Fluid wave present General: Yes no CVA tenderness Back/Spine/Pelvis Back: no CVA tenderness Skin General skin exam: no rashes or lesions noted Neuro General: patient oriented x3 Extrem General: No clubbing and Yes edema Results Reviewed Nephrology Results: Hgb 9.8 g/dl (14.0-18.0) L 11/28/24 WBC 6.2 X10*3/uL (4.8-10.8) 11/28/24 Plt Count 153 X10*3/uL (160-400) L 11/28/24 Sodium 139 mmol/L (135-145) 11/28/24 Potassium 5.6 mmol/L (3.3-5.1) H 11/28/24 Chloride 107 mmol/L (96-108) 11/28/24 Carbon Dioxide 23 mmol/L (22-29) 11/28/24 BUN 59 mg/dL (9-16) H 11/28/24 Creatinine 2.05 mg/dL (0.5-1.4) H 11/28/24 Calcium 9.5 mg/dL (8.4-10.2) 11/28/24 Assessment & Plan Assessment & Plan (1) CKD (chronic kidney disease) stage 4, GFR 15-29 ml/min: Code(s): N18.4 - Chronic kidney disease, stage 4 (severe) Category: Medical Plan: . No signs and uremia. Goal is to slow the progression of kidney disease. Continue to avoid nephrotoxic agents including NSAIDs. He will benefit from SGLT 2 inhibitor Superimposed ZHEN Creatinine was up and improved after lowering Lisinopril from 20mg to 10 mg Creatinine is down to 2.05 Clinically appears euvolemic Keep Torsemide 10 mg daily (2) Diabetes mellitus with chronic kidney disease: Code(s): E11.22 - Type 2 diabetes mellitus with diabetic chronic kidney disease Category: Medical Plan: . Goals maintain hemoglobin A1c less than 7%. He will benefit from weight loss. (3) Anemia due to chronic kidney disease: Code(s): N18.9 - Chronic kidney disease, unspecified; D63.1 - Anemia in chronic kidney disease Category: Medical Plan: No indication for Epogen yet. Iron /TIBC are acceptable (4) HTN (hypertension): Code(s): I10 - Essential (primary) hypertension Category: Medical Plan: Blood pressures are acceptable. Needs to stay on low-sodium diet. No changes were made to the antihypertensive medication today. Goal is met and blood pressures in 130/80 Avoid hypotension. (5) Hyperkalemia: Code(s): E87.5 - Hyperkalemia Category: Medical Plan: Keep Lisinopril 20 mg Qd Low K diet Keep Lokelma 5 gm PO twice a week Orders: Orders Basic Metabolic Panel 4 Months N18.4 - Chronic kidney disease, stage 4 (severe) Scribe Plan - Not visible on output: Fax to Dr Sheryl Judge - [phone] Coding Level of Care Code Est Pt Level 4 (97210) Diagnoses CKD (chronic kidney disease) stage 4, GFR 15-29 ml/min N18.4 Diabetes mellitus with chronic kidney disease E11.22 Anemia due to chronic kidney disease N18.9; D63.1 HTN (hypertension) I10 Hyperkalemia E87.5
--- OUTSIDE RECORDS SUMMARY | 2024-12-06 11:35 | XMS_ITS | Continuity of Care Document ---
Author Organization [facility] Address [address] [facility] [address] [place] [address] Phone Care Team Providers Care University Internship Name Role Phone Alvin Girard Unavailable Unavailable [...] Established 15 Mins Feb Duplex Scan-extrem Veins; Office/Outpt E&M Established 15 Mins Jan Advance [...] on Encounter Office/Outpt E&M Established 15 Mins- [place] & [place] [facility], [address] [place] [address] Dr Kumar 1000SuRomán millan MD, [id number], [place] tel:[phone] [facility] Restless legs syndromeEssent ial (primary) hypertensionLy mphedema, not elsewhere classifiedHere ditary lymphedemaChro armen venous hypertension (idiopathic) with other complications of bilateral lower extremityPerip heral vascular disease, unspecifiedTyp e 2 diabetes mellitus without complications 5 Ingrid Esquivel. [address] [place] [address], [facility] [place], [id number], [place]. tel:[phone] Referring Provider: Turner Booker MD, [address] [place] [address], [address]. tel:[phone] [facility], [address] [place] [address] Dr Kumar 1000[facility] Román Hrarison [place], [id number], [place] tel:[phone] [facility] Chronic venous hypertension (idiopathic) with other complications of bilateral lower extremity 5 Abiola Francia. [address] [place] [address], [address], [place], [place], [id number], [place]. tel:[phone] Referring Provider: Turner Booker MD, [address] [place] [address], [address]. tel:[phone] Office/Outpt E&M Established 15 Mins [facility], [address] [place] [address] Dr Kumar 1000[facility] Román Harrison [place], [id number], [place] tel:[phone] [facility] Localized edemaRestless legs syndromeType 2 diabetes mellitus without complicationsE ssential (primary) hypertension 4 Nash GREENE, RVDulce, JULISA Coronel. [address] [place] [address], [facility] [place], [id number], [place]. tel:[phone] Referring Provider: Turner Booker MD, [address] [place] [address], [address]. tel:[phone] [facility], [address] [place] [address] Dr [address]Román [place], [id number], [place] tel:[phone] [facility] [place] [facility] [place] Pain in right leg 4 Nash GREENE, RVT, [facility] Homer. [address] [place] [address], [facility] [place], [id number], [place]. tel:[phone] Referring Provider: Turner Booker MD, [address] [place] [address], [address]. tel:[phone] Office/Outpt E&M Established 15 Mins [facility], [address] [place] [address] Dr [address] [address]Román [place], [id number], [place] tel:[phone] [facility] [place] [facility] [place] Chronic venous hypertension w oth comp of r low extrem 3 Brandyn GREENE FACS T [facility] Brittany Queen. [address] [place] [address], [facility] [place], [address], [place]. tel:[phone] Referring Provider: Brittany Ahumada MD FACS RVT [facility], [address] [place] [address], [facility] [place], [address]. tel:[phone] [facility], [address] [place] [address] Dr [address]Román [place], [id number], [place] tel:[phone] [facility] [place] [facility] [place] Chronic venous hypertension w oth comp of r low extrem 3 Brandyn GREENE FACS T [facility] Brittany Queen. [address] [place] [address], [facility] [place] [place], [address], [place]. tel:[phone] Referring Provider: Brittany Ahumada MD FACS RVT RP, [address] [place] [address], [facility] [place], [address]. tel:[phone] Office/Outpt E&M Established 15 Mins [facility], [address] [place] [address] Dr [address] [address]Román [place], [id number], tel:[phone] [facility] [place] [facility] [place] Chronic venous hypertension w oth comp of r low extrem 3 Brandyn GREENE FACS T [facility] Brittany Queen. [address] [place] [address], [place] [address], [place], [address], . tel:[phone] Referring Provider: Brittany Ahumada MD FACS T [facility], [address] [place] [address], [place], [address]. tel:[phone] Family History Family Member Type Diagnosis Age At Onset No Information Payers Payer name Insurance type Covered constitution party ID Authoriza tion(s) Medicare ADAN HEWITT [id number] [facility] CI [id number] Social History Type Description Quantity Date Captured [...]
--- OUTSIDE RECORDS SUMMARY | 2024-12-06 11:35 | XMS_ITS | Clinical Summary ---
Author Organization [address] [facility] Address [address] [place] [address] Phone Care Team Providers Care Power Hair Clipper Name Role Phone Turner Booker MD Primary Care Provider [phone] Allergies Active Allergy Reactions Criticality Noted Date [...] day. 180 tablet 2 11/03/19 25 Active Active Problems Problem Noted Date Diagnosed Date Atrial fibrillation ([facility] V24, [facility] V28) 0 12/19/2021 Overview (07/12/2024): Last Assessment & Plan: Heart rate controlled with no need for rate control medication. On reduced dose Eliquis. Assessment & Plan (09/11/2024 4:55 PM EST): Heart rates in normal range without requirement of rate control medications. He is asymptomatic. Will continue monitor. Atrial flutter ([facility] V24, [facility] V28) 2020 Overview (07/12/2024): Dose adjusted apixaban [...] his newly diagnosed COPD. Congestive heart failure ([facility] V24, [facility] V 28) 08/24/2020 Overview (07/12/2024): Last Assessment & Plan: With preserved EF. Stable. On low-dose torsemide. Cardiac PYP scan negative. Assessment & Plan (09/11/2024 4:55 PM EST): Appears euvolemic. Continue low-dose torsemide. 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 08/24/2020 Overview (07/12/2024): [...] Type 2 diabetes mellitus wit h cataract ([facility] V24, [facility] V28) 01/24/2018 Diabetic cataract ([facility] V24, [facility] V28) 06/2018 DRAKE on CPAP 01/11/2018 Encounters Date Type Department Care Team Description 11/11/2024 6:38 PM EDT - 11/11/2024 10:08 PM EDT Emergency [facility] Emergency [address] [place] [id number] Triston Mcclain MD Montano, Gary L, MD Epistaxis, recurrent (Primary Dx) Discharge Disposition: Home or Self Care 11/02/2024 Telephone [facility] [address] [place] [address] Chayo Xavier MD Med Refill (Eliquis 2.5 mg ) 09/11/2024 2:00 PM EST Office Visit [facility] [address] [place] [address] Chayo Xavier MD Coronary artery disease involving coronary bypass graft of [place] heart without angina pectoris (Primary Dx); Persistent atrial fibrillation ([facility] V24, [facility] V28); Chronic diastolic congestive heart failure ([facility] V24, [facility] V28) from Last 3 Months Surgical History Surgery Date Site/Laterality Comments CORONARY ARTERY BYPASS GRAFT PROCEDURE: HISTORICAL CABG CATARACT EXTRACTION PROCEDURE: HISTORICAL CATARACT REMOVAL KNEE SURGERY PROCEDURE: HISTORICAL KNEE SURGERY; COMMENT: arthroplasty OTHER SURGICAL HISTORY PROCEDURE: MS ANES HRT PERICARDIAL SAC& GRT VESLS W/O TRAVEL MED SURG RN OXT OTHER SURGICAL HISTORY PROCEDURE: MS ANESTH OPEN/SURG ARTHRS TOTAL KNEE ARTHROPLASTY; COMMENT: 2 surgeries Medical History Medical History Date Comments DRAKE on CPAP 01/11/2018 DX:DRAKE on CPAP History of anemia 01/24/2018 DX:History of anemia Tachycardia 01/24/2018 DX:Tachycardia; COMMENT: 01/2017 Metoprolol Tendinitis of shoulder 01/24/2018 DX:Tendin itis of shoulder; COMMENT: calcifying History of varicose veins 01/24/2018 DX:His tory of varicose veins Type 2 diabetes mellitus wit h cataract ([facility] V24, [facility] V28) 01/24/2018 DX:Type 2 diabetes mellitus with cataract (HCC) Hyperlipidemia 01/24/2018 DX:Hyperlipidemi a; COMMENT: CABG Diabetic cataract ([facility] V 24, [facility] V28) 01/24/2018 DX:Diabetic cataract (HCC) Heart disease DX:Heart disease Diabetes ([facility] V24, [facility] V28) DX:Diabetes (HCC) Hypertension DX:Hypertension Anemia DX:Anemia [...] Description 03/08/2025 1:00 PM EDT Office Visit [facility] [address] [facility] [address] [place] [address] Chayo Xavier MD [address] [facility] [address] [place] [address] Health Maintenance Due Date Last Done Comments Diabetes: Annual Foot Exam 1945 Diabetes: Annual Retina Eye Exam 1945 Depression Screening 07/25/2022 Falls Risk Assessment 07/25/2022 Social Influencers of Health Screening 07/25/2022 Diabetes: Blood Sugar Control Test (HGBA1C) 08/01/2022 Medicare Annual Wellness Visit 05/08/2023 05/08/2022 DTaP,Tdap,and Td Vaccines (3 - Td or Tdap) 12/20/2024 12/20/2014, 12/20/2014 COVID-19 Vaccine ( season) 2025 11/08/2024, 07/20/2023, 08/05/2021, Additional history exists Hypertension/CHF/CAD Annual BMP Blood Test 11/11/2025 11/11/2024, 02/10/2024, 02/10/2024 Cholesterol Screening (Lipid Panel) 02/09/2029 02/10/2024, 02/10/2024 Zoster Vaccines Completed 11/03/2021, 08/17, 06/02/2012 RSV Immunization Adult Patients Completed 05/31/2023 Influenza Vaccine Completed 10/05/2024, , 05/17/2023, Additional history exists Pneumococcal Vaccine: 50+ Years Completed 10/05/2024, 12/20/2014, 07/16/2011, Additional history exists HIB Vaccines Aged Out [...] artery disease involving coronary bypass graft of [place] heart without angina pectoris LIPID PANEL Routine 02/10/2024 from Last 3 Months or Most Recently Relevant to Health Maintenance Results * (ABNORMAL) CBC auto differential (11/11/2024 6:24 PM EDT) [facility] WBC 6.5 4.8 - 10.8 K/mcL LAB HEMETOLOGY METHOD 11/11/2024 6:54 PM EDT [facility] RBC 3.80(L) 4.50 - 5.50 M/mcL LAB HEMETOLOGY METHOD 11/11/2024 6:54 PM EDT [facility] Hemoglobin 10.7(L) 13.5 - 17.5 g/dL LAB HEMETOLOGY METHOD 11/11/2024 6:54 PM EDT [facility] Hematocrit 35.2(L) 42.0 - 54.0 % LAB HEMETOLOGY METHOD 11/11/2024 6:54 PM EDT [facility] MCV 93.4 79.0 - 98.0 FL LAB HEMETOLOGY METHOD 11/11/2024 6:54 PM EDT [facility] MCH 28.4 27.0 - 32.0 pcg LAB HEMETOLOGY METHOD [facility] MCHC 30.4(L) 32.0 - 37.0 g/dL LAB HEMETOLOGY METHOD 11/11/2024 6:54 PM EDT [facility] RDW 13.2 11.0 - 15.0 % LAB HEMETOLOGY METHOD 11/11/2024 6:54 PM EDT [facility] Platelets 174 130 - 400 K/mcL LAB HEMETOLOGY METHOD 11/11/2024 6:54 PM EDT [facility] MPV 10.7 7.0 - 11.0 FL LAB HEMETOLOGY METHOD 11/11/2024 6:54 PM EDT [facility] NRBC 0.0 <1.0 % LAB HEMETOLOGY METHOD 11/11/2024 6:54 PM EDT [facility] NRBC Absolute 0.00 <0.10 K/mcL LAB HEMETOLOGY METHOD 11/11/2024 6:54 PM EDT [facility] Neutrophils Relative 68.9 % LAB HEMETOLOGY METHOD 11/11/2024 6:54 PM EDT [facility] Lymphocytes Relative 16.6 % LAB HEMETOLOGY METHOD 11/11/2024 6:54 PM EDT [facility] Monocytes Relative 10.0 % LAB HEMETOLOGY METHOD 11/11/2024 6:54 PM EDT [facility] Eosinophils Relative 3.4 % LAB HEMETOLOGY METHOD 11/11/2024 6:[address] [facility] Basophils Relative 0.6 % LAB HEMETOLOGY METHOD [facility]/11[facility]24 [facility] Immature Granulocytes Relative 0.5 % LAB HEMETOLOGY METHOD [facility]2024 [facility] Neutrophils Absolute 4.49 1.50 - 7.00 K/mcL LAB HEMETOLOGY METHOD 11/11/2024 6:[address] [facility] Lymphocytes Absolute 1.08 1.00 - 5.00 K/mcL LAB HEMETOLOGY METHOD 11/11/2024 6:54 PM EDT [facility] Monocytes Absolute 0.65 0.20 - 1.00 K/mcL LAB HEMETOLOGY METHOD 11/11/2024 6:54 PM EDT [facility] Eosinophils Absolute 0.22 0.00 - 0.50 K/mcL LAB HEMETOLOGY METHOD 11/11[facility]2024 [facility] Basophils Absolute 0.04 0.00 - 0.20 K/mcL LAB HEMETOLOGY METHOD 11/11/2024 6:54 PM EDT [facility] Immature Granulocytes Absolute 0.03 0.00 - 0.03 K/mcL LAB HEMETOLOGY METHOD 11/11/2024 6:54 PM EDT [facility] Blood Venous blood specimen / Unknown Venipuncture / Unknown 11/11/2024 6:24 PM EDT 11/11/2024 6:39 PM EDT Bradley Pearson MD LAB BLOOD ORDERABLES Final Res ult Performing Organization Address [facility] Co de Phone Number [facility] [address] [place] [address], [place] [phone] * (ABNORMAL) Prothrombin time with INR (11/11/2024 6:24 PM EDT) Protime 17.1(H) 10.6 - 13.9 sec LAB COAGULATION METHOD 11/11/2024 6:57 PM EDT [facility] INR 1.4 LAB COAGULATION METHOD 11/11/2024 6:57 PM EDT [facility] Blood Venous blood specimen / Unknown Venipuncture / Unknown 11/11/2024 6:24 PM EDT 11/11/2024 6:39 PM EDT us Bradley Pearson MD LAB BLOOD ORDERABLES Final Res ult Performing Organization Address City/[facility]/ZIP Co de Phone Number [facility] [address] [place] [address], [place] [phone] * (ABNORMAL) Basic metabolic panel (11/11/2024 6:24 PM EDT) Sodium 137 133 - 145 mmol/L LAB CHEMISTRY METHOD 11/11/2024 7:08 PM EDT [facility] Potassium 4.7 3.5 - 5.5 mmol/L LAB CHEMISTRY METHOD 11/11/2024 7:08 PM EDT [facility] Chloride 105 96 - 110 mmol/L LAB CHEMISTRY METHOD 11/11/2024 7:[address] [facility] CO2 26 21 - 32 mmol/L LAB CHEMISTRY METHOD 11/11/2024 7:[address] [facility] Anion Gap 6 3 - 11 LAB CHEMISTRY METHOD 11/11/2024 7:[address] [facility] Glucose 119(H) 70 - 100 mg/dL LAB CHEMISTRY METHOD 11/11/2024 7:[address] [facility] BUN 57(H) 5 - 25 mg/dL LAB CHEMISTRY METHOD 11/11/2024 7:[address] [facility] Creatinine 2.15(H) 0.70 - 1.30 mg/dL LAB CHEMISTRY METHOD 11/11/2024 7:[address] [facility] eGFR 29(L) >=60 mL/min/1. 73m2 LAB CHEMISTRY METHOD 11/11/2024 7:[address] [facility] Comment:Calculation based on the??Chronic Kidney Disease Epidemiology Collaboration (CKD-EPI) equation refit??without adjustment for race. BUN/Creatinine Ratio 26.5 LAB CHEMISTRY METHOD 11/11/2024 7:[address] [facility] Calcium 9.0 8.5 - 10.5 mg/dL LAB CHEMISTRY METHOD 11/11/2024 7:[address] [facility] Blood Venous blood specimen / Unknown Venipuncture / Unknown 11/11/2024 6:24 PM EDT 11/11/2024 6:39 PM EDT us Bradley Pearson MD LAB BLOOD ORDERABLES Final Res ult [facility] [address] [place] [address], [place] [phone] * ECG 12 lead (09/11/2024 2:24 PM EST) Ventricular Rate ECG 66 BPM GEMUSE Atrial Rate 66 BPM GEMUSE QRS Duration 90 ms GEMUSE Q-T Interval 418 ms GEMUSE QTc 438 ms GEMUSE R [place] 121 degrees GEMUSE T [place] -38 degrees GEMUSE ECG Interpretation Atrial fibrillation [...] Final Result GEMUSE * Lipid panel (02/10/2024) Pathologist [facility] LDL/HDL Ratio 2 0 - 4 Triglycerides 63 0 - 150 mg/dL Cholesterol 121 0 - 200 mg/dL HDL 61 >=40 mg/dL LDL Cholesterol 48 0 - 100 mg/dL Blood Venous blood specimen / Unknown [facility] Provider LAB BLOOD ORDERABLES Victoria l Result from Last 3 Months or Most Recently Relevant to Health Maintenance Insurance MEDICARE [facility] Care Teams Power Hair Clipper Relationship Specialty Start Date End Date Turner Booker MD [address] [place] [id number] PCP - General Internal Medicine 09/11/24
--- OUTSIDE RECORDS SUMMARY | 2024-12-06 11:35 | XMS_ITS | Clinical Summary ---
Author Organization [facility] Address [address] [facility] [address] [place] [address] Phone Care Team Providers Care Logistics Analytics Manager Name Role Phone Turner Booker MD Primary Care Provider Allergies No known active allergies Medications albuterol [...] age to complete this topic Insurance Medicare [facility] Medicare [facility] Care Teams Logistics Analytics Manager Relationship Specialty Start Date End Date Turner Booker MD [address] [place] [address] ADAN Cary [id number] PCP - General Internal Medicine 02/03/22
== END 2024-12-06 10:24 | disposition home or self-care (01) ==
PROVIDERS: PCP Internal Medicine; Visit Provider Internal Medicine Hypertension Specialist
DX: I12.9 Hypertensive chronic kidney disease with stage 1 through stage 4 chronic kidney disease, or unspecified chronic kidney disease (principal); E11.22 Type 2 diabetes mellitus with diabetic chronic kidney disease; N18.4 Chronic kidney disease, stage 4 (severe); D63.1 Anemia in chronic kidney disease; E87.5 Hyperkalemia
CPT/HCPCS: 99214

== ENCOUNTER → 2024-12-06 10:03 | Outpatient (BNVA) | payer MEDICARE, SELFPAY | PROVIDERS: PCP Internal Medicine; Visit Provider Internal Medicine Hypertension Specialist | DX: I12.9 Hypertensive chronic kidney disease with stage 1 through stage 4 chronic kidney disease, or unspecified chronic kidney disease (principal); E11.22 Type 2 diabetes mellitus with diabetic chronic kidney disease; D63.1 Anemia in chronic kidney disease; E87.5 Hyperkalemia; N18.4 Chronic kidney disease, stage 4 (severe) | CPT/HCPCS: 99212 ==

== ENCOUNTER 2025-03-27 12:28 | Outpatient (REF) | payer MEDICARE, SELFPAY ==
--- OUTSIDE RECORDS SUMMARY | 2025-03-26 11:00 | XMS_ITS | Encounter Summary ---
Author Organization [employer] Address [address] [place] [address] Care Team Providers Care Workforce Consultant Name Role Phone Turner Booker MD Primary Care Provider [phone] Reason for Visit * Reason Comments Wound Care Encounter Details Date Type Department Care Team (Late st Contact Info) Description 03/26/2025 11:00 AM EDT Office Visit [facility] [address] [place] [id number] Tatum De La Paz MD [address] [address] Pressure ulcer of left heel, stage 3 (CMS/HCC V24, CMS/HCC V28) (Primary Dx); Pressure injury of right heel, stage 4 (CMS/HCC V24, CMS/HCC V28); Dermatitis associated with moisture; Skin ulcer of groin, limited to breakdown of skin (CMS/HCC V24, CMS/HCC V28) Social History Tobacco Use Types Packs/Day Years Used Date Smoking Tobacco: Former Cigarettes Q uit: 08/16/1970 Smokeless Tobacco: Never Alcohol Use Standard Drinks/Week Comments Yes 1 (1 standard drink = 0.6 oz pur e alcohol) Food Risk Answer Date Recorded Within the past 12 months we worried whether our food would run out before we got money to buy more. Never true 12/29/2024 Within the past 12 months th e food we bought just didn't last and we didn't have money to get more. Never true 12/29/2024 Interpersonal Safety Answer Date Record ed Physical Abuse 03/22/2025 Verbal Abuse 03/22/2025 Sex and Gender Information Value Date Recorded Sex Assigned at Male 11/11/2024 7:08 PM EDT Legal Sex Male 9:04 PM EST Gender Identity Male 11/11/2024 7:08 PM EDT Sexual Orientation Straight 11/11/2024 7: 08 PM EDT documented as of this encounter Last Filed Vital Signs Vital Sign Reading Time Taken Comments Blood Pressure 124/42 03/26/2025 10:54 AM EDT Pulse 84 03/26/2025 10:54 AM EDT Temperature 36.2 C (97.1 F) 03/26/2025 10:54 AM EDT Respiratory Rate 17 03/26/2025 10:54 AM EDT Oxygen Saturation 95% 03/26/2025 10:54 AM EDT Inhaled Oxygen Concentration - - Weight - - Height - - Body Mass Index - - documented in this encounter Functional Status * Are you deaf or do you have serious difficulty hearing? Answer Date of Assessment Author No 03/22/2025 6:25 AM EDT Candace Gaming RN * Are you blind or do you have serious difficulty seeing, even when wearing glasses? Answer Date of Assessment Author No 03/22/2025 6:25 AM EDT Candace Gaming RN * Do you have serious difficulty walking or climbing stairs? Answer Date of Assessment Author Yes 03/22/2025 6:25 AM EDT Candace Gaming RN * Do you have serious difficulty dressing or bathing? Answer Date of Assessment Author Yes 03/22/2025 6:25 AM EDT Candace Gaming RN * Because of a physical, mental, or emotional condition, do you have serious difficulty doing errandsalone such as visiting the doctor? Answer Date of Assessment Author Yes 03/22/2025 6:25 AM EDT Candace Gaming RN documented as of this encounter Mental Status * Because of a physical, mental, or emotional condition, do you have serious difficulty concentrating, remembering, or making decisions? (5 years old or older) Answer Entry Date Author No 03/22/2025 6:25 AM EDT Candace Gaming RN documented in this encounter Ordered Prescriptions Prescription Sig Dispense Quantity Refills Last Filled Start Date End Date collagenase (SANTYL) 250 unit/gram ointmentIndication s:Pressure ulcer of left heel, stage 3 (CMS/[facility] V24, CMS/[facility] V28),Pressure injury of right heel, stage 4 (CMS/[facility] V24, CMS/[facility] V28) Apply topically 1 (one) time each day. 357 g 2 03/26/2025 5 documented in this encounter Progress Notes * Neli Ball RN - 03/26/2025 11:00 AM EDT PROVIDER ORDERS Go to ER if you are presenting with fever, chills, increased redness, pain, swelling, warmth aroundwound area and/or foul smelling odor. If you have any questions or concerns, please contact the [facility] at . Follow up(s)/ Referrals: Vascular: [facility] as scheduled [facility]sp: Home care: [facility] -Will send script over to [facility] for Santyl collagenase ointment Additional Orders: Increase protein in your diet to help promote wound healing, Maintain good blood sugar control Lidocaine Orders: Apply Lidocaine 5% Topical Ointment prior to debridements at Wound Care appointments Edema Control: (If your compression wrap(s) feel to tight, please elevate your leg(s) about heart level. If your wrap(s) are becoming painful and/or you loose sensation of toes/ are having toe discoloration (a change from your baseline), please remove / unwrap compression and notify [facility] at . ) Tubigrip to bilateral lower extremities. Apply first thing in the morning prior to getting out of bed, OK to remove at bedtime. Ensure tubigrip extends from just behind the toes to about 2 finger widths below the knee., Tubigrip F Offloading: Float heels, Limit pressure to wound as much as possible Negative Pressure Wound Therapy: (If wound vac is off/non functioning for more than 2 hours, please remove vac dressing, apply a wetto dry dressing and notify your home care agency) N/A Cellular/Tissue Based Products: N/A Bathing / Showering / Hygiene: Ok to shower with dressing on, then change dressing right after. Non-wound Condition/ Other Skin Care: Moisturize skin daily, avoiding wound area Wound Location(s): Wound #1 (Right Heel): Cleanser: Cleanse with Normal Saline Periwound: N/A Topical: Santyl Ointment- Apply a nickel thick amount of ointment to the wound. If the wound is dry, place a gauze moistened with normal saline over ointment before second dressing (Apply when available, better if can be applied daily to wounds) Primary dressing: Medihoney Alginate- cut to fit to wound bed Secondary dressinx4 woven gauze (non-sterile) Secure with: 3 conforming gauze roll, 1 paper tape Compression Therapy: Tubigrip F Dressing Change Frequency: Three times each week (Daily if able when Santyl is available) Wound #2 (Left Heel): Cleanser: Cleanse with Normal Saline Periwound: N/A Topical: Santyl Ointment- Apply a nickel thick amount of ointment to the wound. If the wound is dry, place a gauze moistened with normal saline over ointment before second dressing(Apply when available, better if can be applied daily to wounds) Primary dressing: Medihoney Alginate- cut to fit to wound bed Secondary dressinx4 woven gauze (non-sterile) Secure with: 4 conforming gauze roll , 1 paper tape Compression Therapy: Tubigrip F Dressing Change Frequency: Three times each week (Daily if able when Santyl is available) Wound #3 (Right lower abdomen/groin area): Cleanser: Soap and Water Periwound: N/A Topical: N/A Primary dressing: Other: Interdry Secondary dressing: N/A Secure with: N/A Compression Therapy: N/A Dressing Change Frequency: Daily and as needed * Tatum De La Paz MD - 03/26/2025 11:00 AM EDTAssociated Order(s): Debridement Pressure Injury (cluster of 2) Right Heel Post-Procedure Diagnose(s): Pressure injury of right heel, stage 4 (CMS/HCC V24, CMS/HCC V28) Images from the original note were not included. [facility] [place] [address] Office Visit Visit Date: 03/26/2025 Patient Name: Edwardo Belcher Date of : 1935 PCP: Turner Booker MD HPI: Edwardo comes in for follow-up right heel pressure left lateral foot ulcer treated with Medihoney alginate dressing change every other day. He has a history of PVD, last week he had angiogram ofhis right leg done and angioplasty by Dr. Zbigniew Smith. He is taking his diuretics, patient is also onapixaban for atrial fibrillation. He has no fever no chills. Assessment and Plan: Pressure ulcer of left heel, stage 3 (CMS/HCC V24, CMS/HCC V28) (Primary) - collagenase (SANTYL) 250 unit/gram ointment; Apply topically 1 (one) time each day. Dispense: 357g; Refill: 2 Pressure injury of right heel, stage 4 (CMS/HCC V24, CMS/HCC V28) - Debridement Pressure Injury (cluster of 2) Right Heel - collagenase (SANTYL) 250 unit/gram ointment; Apply topically 1 (one) time each day. Dispense: 357g; Refill: 2 Dermatitis associated with moisture Skin ulcer of groin, limited to breakdown of skin (CMS/HCC V24, CMS/HCC V28) Selective debridement of right heel ulcer carried out with scalpel and forceps excising necrotic tendon and fibrin and slough. Minimal bleeding controlled with pressure. He tolerated the procedure well. All questions were answered to his satisfaction. He was counseled regarding my impressions, instructions for management, and the importance of compliance with treatment. Follow up in about 2 weeks (around 04/09/2025) for Follow up with Dr. De La Paz. >>>>>>>>>>>>>>>>>>>>>>>>>>>>>>>>>>>>>>>>>>>>>>>>>>> Vital Signs: Visit Vitals BP (!) 124/42 Pulse 84 Temp 36.2 ??C (97.1 ??F) (Temporal) Resp 17 Review of Systems: Review of Systems PHYSICAL EXAM right heel ulcers down to the Achilles tendon, with areas of pink granulation tissue.Around the edges. There is some also necrotic tendon around the edges. Left heel ulcer is smaller with pink granulation tissue. Right and left leg edema has improved. Doppler audible pedal pulses. WOUND ASSESSMENT If photograph of wound not visible on this note, please check under Media tab. Wound Pressure Injury 12/28/24 Heel Right (Active) Date First Assessed/Time First Assessed: 12/28/24 1018 Primary Wound Type: (c) Pressure Injury Wound Approximate Age at First Assessment (Weeks): 12 weeks Location: Heel Wound Location Orientation: Right Assessments 12/28/2024 10:19 AM 03/26/2025 11:34 AM Wound Image Wound Bed Tissue Assessment -- Granulation;Sloughing Dede-Wound Assessment -- Scarred;[place];Edema Wound Length (cm) 1.2 cm 7.4 cm Wound Width (cm) 0.5 cm 9 cm Wound Surface Area (cm^2) 0.6 cm^2 66.6 cm^2 Wound Depth (cm) -- 0.4 cm Wound Volume (cm^3) -- 26.64 cm^3 Wound Healing % -- -4974 Drainage Description -- Serosanguineous Drainage Amount -- Large Treatments -- Cleansed Dressing Foam;Other (Comment) -- Dressing Changed New -- Dressing Status -- Removed Wound Bed Granulation (%) -- 50 % Wound Bed Epithelialization (%) -- 0 % Wound Bed Slough (%) -- 50 % Wound Bed Eschar (%) -- 0 % Tunneling -- 0 cm Undermining -- 0 cm Edges -- Attached edges Pressure Injury Stage Deep Tissue Stage 4 Active Orders Date Order Priority Status Authorizing Provider 03/26/25 1208 Debridement Pressure Injury (cluster of 2) Right Heel Routine Active Tatum De La Paz MD Inactive Orders Date Order Priority Status Authorizing Provider 03/22/25 1231 Wound Care Inpatient Follow-Up 3 Wounds Associated Routine Completed Rey Santos DO - Reason for Consult?: left buttock abrasion, continued care bilateral heel/right ankle wounds 02/19/25 1123 Debridement Pressure Injury (cluster of 2) Right Heel Routine Completed Tatum De La Paz MD 01/17/25 1139 Wound dressing (Bilateral posterior heel and Achilleles area and Rt lateral ankle- paint with betadine, apply abd pad, victoria wrap, offolad at all times in bed with waffle boots) Daily Routine Discontinued Colby Diaz MD 01/16/25 1423 Wound Care Inpatient Follow-Up 2 Wounds Associated Routine Completed DAVID Chun - Reason for Consult?: heel wounds 12/28/24 1230 Wound dressing (apply foam dressing, offolad with waffle boots at all times in bed) q3 days Routine Discontinued Leonor Soliz MD Wound Pressure Injury 12/28/24 Heel Left (Active) Date First Assessed/Time First Assessed: 12/28/24 1023 Primary Wound Type: Pressure Injury Location: Heel Wound Location Orientation: Left Assessments 12/28/2024 10:24 AM 03/26/2025 11:33 AM Wound Image Wound Bed Tissue Assessment [place] Granulation;Sloughing Dede-Wound Assessment -- Scarred;[place] Wound Length (cm) -- 3 cm Wound Width (cm) -- 1.1 cm Wound Surface Area (cm^2) -- 3.3 cm^2 Wound Depth (cm) -- 0.2 cm Wound Volume (cm^3) -- 0.66 cm^3 Wound Healing % -- -193 Drainage Description -- Serosanguineous Drainage Amount -- Moderate Treatments -- Cleansed Dressing Foam -- Dressing Changed New -- Dressing Status -- Removed Wound Bed Granulation (%) -- 70 % Wound Bed Epithelialization (%) -- 0 % Wound Bed Slough (%) -- 30 % Wound Bed Eschar (%) -- 0 % Tunneling -- 0 cm Undermining -- 0 cm Edges -- Attached edges;Well-defined edges Pressure Injury Stage Deep Tissue Stage 3 Inactive Orders Date Order Priority Status Authorizing Provider 03/22/25 1231 Wound Care Inpatient Follow-Up 3 Wounds Associated Routine Completed Rey Santos DO - Reason for Consult?: left buttock abrasion, continued care bilateral heel/right ankle wounds 03/05/25 1148 Debridement Pressure Injury Left Heel Routine Completed Tatum De La Paz MD 02/19/25 1118 Debridement Pressure Injury Left Heel Routine Completed Tatum De La Paz MD 01/17/25 1139 Wound dressing (Bilateral posterior heel and Achilleles area and Rt lateral ankle- paint with betadine, apply abd pad, victoria wrap, offolad at all times in bed with waffle boots) Daily Routine Discontinued Colby Diaz MD 01/16/25 1423 Wound Care Inpatient Follow-Up 2 Wounds Associated Routine Completed DAVID Chun - Reason for Consult?: heel wounds 12/28/24 1230 Wound dressing (apply foam dressing, offolad with waffle boots at all times in bed) q3 days Routine Discontinued Leonor Soliz MD Wound Moisture Associated Dermatitis 03/22/25 Groin Right;Lower;Lateral (Active) Date First Assessed/Time First Assessed: 03/22/25 2100 Primary Wound Type: Moisture Associated Dermatitis Present on Admission: Yes Location: Groin Wound Location Orientation: Right;Lower;Lateral Wound Description (Comments): puncture from medhat... Assessments 03/22/2025 9:00 PM 03/26/2025 11:39 AM Wound Image Wound Bed Tissue Assessment Unable to assess Granulation Dede-Wound Assessment Unable to assess Ecchymotic;Intact;Moist Wound Length (cm) -- 5.1 cm Wound Width (cm) -- 9.6 cm Wound Surface Area (cm^2) -- 48.96 cm^2 Wound Depth (cm) -- 0.1 cm Wound Volume (cm^3) -- 4.896 cm^3 Drainage Description -- Serosanguineous Treatments -- Cleansed Dressing Gauze;Transparent film -- Dressing Changed Maintained -- Dressing Status Clean;Dry;Intact -- Wound Bed Granulation (%) -- 50 % Wound Bed Epithelialization (%) -- 50 % Wound Bed Slough (%) -- 0 % Wound Bed Eschar (%) -- 0 % Tunneling -- 0 cm Undermining -- 0 cm Edges -- Attached edges;Well-defined edges Non-staged Wound Description -- Partial thickness No associated orders. Pertinent Labs: Albumin Date Value Ref Range Status 03/23/2025 2.9 (L) 3.2 - 5.0 g/dL Final WBC Date Value Ref Range Status 03/23/2025 7.5 4.8 - 10.8 K/mcL Final WBC, Urine Date Value Ref Range Status 03/22/2025 1.9 0 - 4 /HPF Final Hemoglobin A1C Date Value Ref Range Status 01/01/2025 8.3 (H) <6.5 % Final Glucose POCT Date Value Ref Range Status 03/23/2025 207 (H) 70 - 100 mg/dL Final Procedure Note: Debridement Pressure Injury (cluster of 2) Right Heel Performed by: Tatum De La Paz MD Authorized by: Tatum De La Paz MD Associated wounds: Wound Pressure Injury 12/28/24 Heel Right Consent: Consent obtained: Verbal Consent given by: Patient Risks discussed: Yes Time out: Immediately prior to the procedure a time out was called Time out performed at: 03/26/2025 12:09 PM Debridement Details: Performed by: Physician Type: selective Pain control: Lidocaine 5% Pain control administration: topical anesthesia Severity of Tissue Pre Debridement: Fat layer exposed Severity of Tissue Post Debridement: Fat layer exposed Time taken: 03/26/2025 11:34 AM Length (cm): 7.4 Width (cm): 9 Depth (cm): 0.4 Area (cm^2): 66.6 Time taken: 03/26/2025 11:35 AM Length (cm): 7.4 Width (cm): 9 Depth (cm): 0.4 Percent Debrided (%): 25 Surface Area (cm^2): 66.6 Area Debrided (cm^2): 16.65 Volume (cm^3): 26.64 Devitalized tissue debrided: fibrin and slough Devitalized tissue debrided comment: Devitalized skin Instrument: Blade and forceps Amount of bleeding: none Hemostasis obtained with: Not applicable Procedural pain: 0 Post-procedural pain: 0 Response to treatment: Procedure was tolerated well PROVIDER ORDERS Patient Instructions PROVIDER ORDERS Go to ER if you are presenting with fever, chills, increased redness, pain, swelling, warmth aroundwound area and/or foul smelling odor. If you have any questions or concerns, please contact the [facility] at . Follow up(s)/ Referrals: Vascular: [facility] as scheduled [facility]sp: Home care: [facility] -Will send script over to [facility] for Santyl collagenase ointment Additional Orders: Increase protein in your diet to help promote wound healing, Maintain good blood sugar control Lidocaine Orders: Apply Lidocaine 5% Topical Ointment prior to debridements at Wound Care appointments Edema Control: (If your compression wrap(s) feel to tight, please elevate your leg(s) about heart level. If your wrap(s) are becoming painful and/or you loose sensation of toes/ are having toe discoloration (a change from your baseline), please remove / unwrap compression and notify [facility] at . ) Tubigrip to bilateral lower extremities. Apply first thing in the morning prior to getting out of bed, OK to remove at bedtime. Ensure tubigrip extends from just behind the toes to about 2 finger widths below the knee., Tubigrip F Offloading: Float heels, Limit pressure to wound as much as possible Negative Pressure Wound Therapy: (If wound vac is off/non functioning for more than 2 hours, please remove vac dressing, apply a wetto dry dressing and notify your home care agency) N/A Cellular/Tissue Based Products: N/A Bathing / Showering / Hygiene: Ok to shower with dressing on, then change dressing right after. Non-wound Condition/ Other Skin Care: Moisturize skin daily, avoiding wound area Wound Location(s): Wound #1 (Right Heel): Cleanser: Cleanse with Normal Saline Periwound: N/A Topical: Santyl Ointment- Apply a nickel thick amount of ointment to the wound. If the wound is dry, place a gauze moistened with normal saline over ointment before second dressing (Apply when available, better if can be applied daily to wounds) Primary dressing: Medihoney Alginate- cut to fit to wound bed Secondary dressinx4 woven gauze (non-sterile) Secure with: 3 conforming gauze roll, 1 paper tape Compression Therapy: Tubigrip F Dressing Change Frequency: Three times each week (Daily if able when Santyl is available) Wound #2 (Left Heel): Cleanser: Cleanse with Normal Saline Periwound: N/A Topical: Santyl Ointment- Apply a nickel thick amount of ointment to the wound. If the wound is dry, place a gauze moistened with normal saline over ointment before second dressing(Apply when available, better if can be applied daily to wounds) Primary dressing: Medihoney Alginate- cut to fit to wound bed Secondary dressinx4 woven gauze (non-sterile) Secure with: 4 conforming gauze roll , 1 paper tape Compression Therapy: Tubigrip F Dressing Change Frequency: Three times each week (Daily if able when Santyl is available) Wound #3 (Right lower abdomen/groin area): Cleanser: Soap and Water Periwound: N/A Topical: N/A Primary dressing: Other: Interdry Secondary dressing: N/A Secure with: N/A Compression Therapy: N/A Dressing Change Frequency: Daily and as needed 03/26/2025 3:52 PM EDT Ttaum De La Paz MD * Salima Cho RN - 03/26/2025 11:00 AM EDT Discharge Patient directed to check out at [facility] and collect visit summary with wound care directions and book follow up as directed. Dressings applied: Wound #1 (Right Heel): Cleanser: Cleanse with Normal Saline Primary dressing: Medihoney Alginate- cut to fit to wound bed Secondary dressinx4 woven gauze (non-sterile) Secure with: 3 conforming gauze roll, 1 paper tape Compression Therapy: Tubigrip F Wound #3 (Left Heel): Cleanser: Cleanse with Normal Saline Primary dressing: Medihoney Alginate- cut to fit to wound bed Secondary dressinx4 woven gauze (non-sterile) Secure with: 4 conforming gauze roll , 1 paper tape Compression Therapy: Tubigrip F Dressing technique was demonstrated and explained. Patient questions answered. Pt discharge from wound care center without issue or incidence. documented in this encounter Plan of Treatment Upcoming Encounters Date Type Department Care Team (Late st Contact Info) Description 04/09/2025 3:[address] [facility] [address] [place] [phone] 04/17/2025 3:00 PM EDT Consult General Surgery - [place] [address] [facility] [address] [place] [phone] Fitz Alford MD [address] [facility] [address] [place] [address] 06/29/2025 2:40 PM EST Office Visit [facility] [address] [facility] [address] [place] [address] Lanie Presley NP [address] [place] [address] documented as of this encounter Goals Goal Patient Goal Type Associated Problems Recent Progress Patient-Stated? Author Decrease Wound Volume by X% by date (in notes) Care Plan Impaired Tissue On track( 025 12:19 PM EDT) No Pauline Fallon RN Patient and Caregiver Understand Wound Care Education Care Plan Impaired Tissue On track( 025 12:19 PM EDT) No Pauline Fallon RN Wound volume breakdown reduced by X% by week 4 Care Plan Impaired Tissue No Pauline Fallon RN Wound volume breakdown reduced by X% by week 8 Care Plan Impaired Tissue No Pauline Fallon RN Wound volume breakdown reduced by X% by week 12 Care Plan Impaired Tissue No Pauline Fallon, DION Quit using tobacco (cigarettes, smokeless, etc) Care Plan Education needed on impact of smoking on wound No Pauline Fallon RN Reduce tobacco use (cigarettes, smokeless, etc) Care Plan Education needed on impact of smoking on wound No Pauline Fallon RN Decrease Wound Volume by X% by date (in notes) Care Plan Education needed on impact of smoking on wound No Pauline Fallon RN Patient and Caregiver Understand Wound Care Education Care Plan Education needed related to ulceration/compr omised skin integrity. No Pauline Fallon RN documented as of this encounter Procedures Procedure Name Priority Date/Time Associated Diagnosis Comments DEBRIDEMENT Routine 03/26/2025 11:00 AM EDT Pressure injury of right heel, stage 4 ([facility] V24, [facility] V28) documented in this encounter Results * Debridement Pressure Injury (cluster of 2) Right Heel (03/26/2025 11:00 AM EDT) Tatum Miller MD - 03/26/2025 11:00 AM EDT Tatum De La Paz MD 03/26/2025 3:53 PM Debridement Pressure Injury (cluster of 2) Right Heel Performed by: Tatum De La Paz MD Authorized by: Tatum De La Paz MD Associated wounds: Wound Pressure Injury 12/28/24 Heel Right Consent: Consent obtained: Verbal Consent given by: Patient Risks discussed: Yes Time out: Immediately prior to the procedure a time out was called Time out performed at: 03/26/2025 12:09 PM Debridement Details: Performed by: Physician Type: selective Pain control: Lidocaine 5% Pain control administration: topical anesthesia Severity of Tissue Pre Debridement: Fat layer exposed Severity of Tissue Post Debridement: Fat layer exposed Time taken: 03/26/2025 11:34 AM Length (cm): 7.4 Width (cm): 9 Depth (cm): 0.4 Area (cm^2): 66.6 Time taken: 03/26/2025 11:35 AM Length (cm): 7.4 Width (cm): 9 Depth (cm): 0.4 Percent Debrided (%): 25 Surface Area (cm^2): 66.6 Area Debrided (cm^2): 16.65 Volume (cm^3): 26.64 Devitalized tissue debrided: fibrin and slough Devitalized tissue debrided comment: Devitalized skin Instrument: Blade and forceps Amount of bleeding: none Hemostasis obtained with: Not applicable Procedural pain: 0 Post-procedural pain: 0 Response to treatment: Procedure was tolerated well us Tatum De La Paz MD IN CLINIC/BEDSIDE ORDERAB LES Final Result documented in this encounter Visit Diagnoses Diagnosis Pressure ulcer of left heel, stage 3 (CMS/[facility] V24, CMS/[facility] V28)- Primary Pressure injury of right heel, stage 4 (CMS/[facility] V24, CMS/[facility] V28) Dermatitis associated with moisture Skin ulcer of groin, limited to breakdown of skin (CMS/[facility] V24, [facility] V28) documented in this encounter Additional Health Concerns Active Problems Noted Date Diagnosed Date Impaired Tissue 02/19/2025 Education needed on impact of smoking on wound 0 02/19/2025 Education needed related to ulceration/compromised skin integrity. 02/19/2025 documented as of this encounter Care Teams Workforce Consultant Relationship Specialty Start Date End Date Turner Booker MD [address] [place] [id number] PCP - General Internal Medicine 09/11/24 documented as of this encounter
--- OUTSIDE RECORDS SUMMARY | 2025-03-27 13:14 | XMS_ITS | Encounter Summary ---
Author Organization [facility] Address [address] [place] [address] Care Team Providers Care Hoop Puncher Name Role Phone Turner Booker MD Primary Care Provider Unavaila Chayo Quiroga MD Unavailable Sachi Mejia DNP Unavailable [phone] Encounter Details Date Type Department Care Team Description 01/05/2022 SCAN Medical Records [address] [place] [address] Abstract, Provider Social History Tobacco Use Types Packs/Day Years Used Date Smoking Tobacco: Former Cigarettes Q uit: 1971 Smokeless Tobacco: Never Alcohol Use Standard Drinks/Week Comments Yes 1 (1 standard drink = 0.6 oz pur e alcohol) Alcohol Habits Answer Date Recorded How often do you have a drin k containing alcohol? 4 or more times a week 08/23/2020 How many drinks containing a lcohol do you have on a typical day when you are drinking? 1 or 2 08/23/2020 How often do you have six or more drinks on one occasion? Not asked Physical Activity Answer Date Recorded On average, how many days pe r week do you engage in moderate to strenuous exercise (like walking fast, running, jogging, dancing, swimming, biking, or other activities that cause a light or heavy sweat)? 0 days 08/23/2020 On average, how many minutes do you engage in exercise at this level? 0 min 08/23/2020 Sex Assigned at Date Recorded Not on file COVID-19 Exposure Response Date Recorded In the last 10 days, have yo u been in contact with someone who was confirmed or suspected to have Coronavirus/COVID-19? No / Unsure 12/19/2021 10:08 AM EDT documented as of this encounter Plan of Treatment Not on file documented as of this encounter Procedures Procedure Name Priority Date/Time Associated Diagnosis Comments OUTSIDE LAB Routine 01/05/2022 documented in this encounter Results * OUTSIDE LAB (01/05/2022) Provider Default LAB documented in this encounter Visit Diagnoses Not on filedocumented in this encounter Care Teams Hoop Puncher Relationship Specialty Start Date End Date Turner Booker MD PCP - General Internal Medicine 01/04/18 Chayo Xavier MD Specialist Cardiology 08/23/20 Sachi Mejia DNP Specialist Cardiology 08/23/20 documented as of this encounter
--- OUTSIDE RECORDS SUMMARY | 2025-03-27 13:15 | XMS_ITS | Clinical Summary ---
Author Organization [facility] Address [address] [facility] [address] [place] [address] Phone Care Team Providers Care Nascar Racer Name Role Phone Turner Booker MD Primary Care Provider [phone] Allergies No known active allergies Medications albuterol [...] Vaccine: 50+ Years (2 of 2 - PPSV23, PCV20, or PCV21) 02/14/2015 12/20/2014, 07/16/2011, 08/23/2001 Diabetes: Ophthalmology Exam 02/03/2022 Diabetes: Pedal Pulse Checked 02/03/2022 Diabetes: Sensory Foot Exam 02/03/2022 Diabetes: Visual Foot Exam 02/03/2022 Diabetes: Hemoglobin A1C 04/03/2025 01/01/2025 Influenza Vaccine (#1) 2025 3, 04/16/2022, 05/16/2021, Additional history exists Hepatitis B Vaccine Aged Out No longe r eligible based on patient's age to complete this topic Insurance Medicare [facility] Medicare [facility] Care Teams Nascar Racer Relationship Specialty Start Date End Date Turner Booker MD [address] [place] [address] [place] [address] PCP - General Internal Medicine 02/03/22
--- OUTSIDE RECORDS SUMMARY | 2025-03-27 13:15 | XMS_ITS | Patient Health Record ---
Author Organization [facility] Address [address] [place] [address] Care Team Providers Care Target Aircraft Controller Name Role Phone Turner Booker Primary Care Provider Cathy Lewis Unavailable [phone] Allergies No Known Allergies Results Component Value Reference Range Notes HEMOGLOBIN A1C (GLYCOHEMOGLO BIN) Reviewed date:11/30/2024 11:26:53 AM Interpretation: Performing Lab: Notes/Report: HEMOGLOBIN A1C % (HH) 6.5 Reason For Referral No Information Medications Medication SIG (Take, Route, Frequency, Duration) Notes Start Date End Date Status Eliquis Active glipiZIDE 2.5 mg Act iris Lisinopril Active Lutein Active Multivitamin Active Vitamin B12 Active Vasculera Active Zocor 40 MG 1 tablet in the even ing Orally Once a day; Duration: 30 day(s) Active Cinnamon Not-Taking Flaxseed Oil Active Torsemide 10 MG 1 tablet Orally Once a day Active Aspirin Active Chromium Picolinate Not-Taking Lipoic Acid Not-Taki ng Flax Seed Oil Not-Ta kelechi Furosemide 20 mg Not -Taking metFORMIN HCl 500 MG Orally Not-Taking Albuterol Active Keflex 500 MG 1 capsule Orally vanessa ry 12 hrs; Duration: 5 days 04/29/2022 Not-Jeovany ing Spiriva HandiHaler A ctive Turmeric Not-Taking Wixela Inhub Active Vitamin C Not-Taking Losartan Potassium A ctive Ammonium Lactate 12 % 1 application Exte rnally to affected areas of dry skin to feet except for between the toes Twice a day; Duration: 30 days Active Extra Depth Orthopedic Shoes (1 Pair) with Customized Heat Molded Multidensity Innersoles (3 Pair) as directed Dx: NIDDM/Polyneuropathy (E11.42), Hammertoe Foot Deformity (M20.41,M20.42), Preulcerative Skin Lesion(s) (L85.1 07/26/2023 Active Immunizations Vaccine Route Administration Date Status Comme nts Influenza Unknown 05/27/2023 Administered COVID-19 Pfizer BioNTech Vaccine Unknown 10/22/2020 Adm inistered COVID-19 Pfizer BioNTech Vaccine Unknown 11/12/2020 Adm inistered Social History Tobacco Use: Social History Observation Description Date Details (start date - stop date) Never Smoker NA - NA Tobacco use other than smoking: Question Answer Notes Are you an other tobacco user? No Tobacco Control (Standard) Question Answer Notes Tobacco use: Nonsmoker Additional Findings: Tobacco non-user Current no nsmoker AUDIT-C (Standard) Question Answer Notes Did you have a drink containing alcohol in the p ast year? No Points 0 Interpretation Negative Problems Problem Type SNOMED Code ICD Code Onset Dates Problem Status W/U Status Risk Notes Problem Acquired hammer toe of right foot (454968958037594 5) Other hammer toe(s) (acquired), right foot (M20.41) Active confirmed Problem Acquired hammer toe of left foot (329735721110861 3) Other hammer toe(s) (acquired), left foot (M20.42) Active confirmed Problem Polyneuropathy due to diabetes mellitus type I (137778343) Type 1 diabetes mellitus with diabetic polyneuropathy (E10.42) Active confirmed Problem Polyneuropathy due to type 2 diabetes mellitus (743274611) Type 2 diabetes mellitus with diabetic polyneuropathy (E11.42) Active confirmed Problem 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 Response to treatment Vital Signs Blood pressure diastolic 60 mm Hg 11/30/2024 Height 5 ft 10 in in 11/30/2024 Blood pressure systolic 135 mm Hg 11/30/2024 Weight 237 lbs 11/30/2024 BMI 34 kg/m2 11/30/2024 Encounters Encounter Location Date Provider Diagnosis [facility] [address] [address] 05/22/2024 Cathy Perica Type 2 diabetes mellitus with diabetic polyneuropathy E11.42 ; Ingrown nail L60.0 and Tinea unguium B35.[address] [address] 05/30/2024 Cathy Brown Ingrown nail L60.0 a nd Type 2 diabetes mellitus with diabetic polyneuropathy E11.[address] [address] 06/12/2024 Cathy Brown Neuropathic ulcer of left foot with fat layer exposed L97.522 and Type 2 diabetes mellitus with diabetic polyneuropathy E11.[address] [address] 07/24/2024 Cathy Kevin Type 2 diabetes mellitus with diabetic polyneuropathy E11.42 and Tinea unguium B35.[address] [address] 09/25/2024 Cathy Dawsona Type 2 diabetes mellitus with diabetic polyneuropathy E11.42 ; Xerosis of skin L85.3 and Tinea unguium B35.[address] [address] 11/30/2024 Cathy Kevin Type 2 diabetes mellitus with diabetic polyneuropathy E11.42 ; Xerosis of skin L85.3 and Tinea unguium B35.[address] [address] 05/31/2024 Cathy Perica [address] [address] 11/30/2024 Cathy Perica [address] [address] 02/08/2025 Cathy Brown Assessments Encounter Date Diagnosis (ICD Code) Assessment Notes Treatment Notes Treatment Clinical Notes Section Notes 05/22/2024 Type 2 diabetes mellitus with diabetic polyneuropathy (ICD-10 - E11.42) 05/22/2024 Ingrown nail (ICD-10 - L60.0) 05/30/2024 Ingrown nail (ICD-10 - L60.0) 06/12/2024 Type 2 diabetes mellitus with diabetic polyneuropathy (ICD-10 - E11.42) 06/12/2024 Neuropathic ulcer of left foot with fat layer exposed (ICD-10 - L97.522) Response to treatment 07/24/2024 Type 2 diabetes mellitus with diabetic polyneuropathy (ICD-10 - E11.42) 09/25/2024 Type 2 diabetes mellitus with diabetic polyneuropathy (ICD-10 - E11.42) 09/25/2024 Xerosis of skin (ICD-10 - L85.3) 11/30/2024 Type 2 diabetes mellitus with diabetic polyneuropathy (ICD-10 - E11.42) 11/30/2024 Xerosis of skin (ICD-10 - L85.3) 11/30/2024 Tinea unguium (ICD-10 - B35.1) 09/25/2024 Tinea unguium (ICD-10 - B35.1) 07/24/2024 Tinea unguium (ICD-10 - B35.1) 05/30/2024 Type 2 diabetes mellitus with diabetic polyneuropathy (ICD-10 - E11.42) 05/22/2024 Tinea unguium (ICD-10 - B35.1) Plan Of Treatment Pending Test Test Name Order Date [id number] NAIL, 6 OR MORE 05/12/2021 [id number] NAIL, 6 OR MORE 07/28/2021 [id number] NAIL, 6 OR MORE 07/20/2022 [id number] NAIL, 6 OR MORE 07/26/2023 [id number]-Tftupsug Plate 07/26/2023 29162 I&D ABSCESS- SIMPLE,SINGLE 022 85935-DBNM SKIN LESIONS, OVER 4 07/26/20 23 58523-AETE SKIN LESIONS, OVER 4 07/20/20 22 96364-TEZZ SKIN LESIONS, OVER 4 07/28/20 21 89983-GHDS SKIN LESIONS, OVER 4 05/12/20 21 Next Appt Details Provider Name:Cathy marcial, 04/19/2025 01:00:00 PM, [address] [place] [address], [place], [address], Insurance Providers Payer Name Payer Address Payer Phone Subscriber Number Group Number Insured Name Patient Relationship to Insured Coverage Start Date Coverage End Date Medicare [employer] [address] [place] [address] [id number] Edwardo Gallagher Self - patient is the insured 0 [facility] [employer] Medicare Preferred [address] [place] [address] [id number] Edwardo Gallagher Self - patient is the insured 1 Medical (General) History Medical History History ICD Code Arthritis Cataracts Chicken pox Diabetes mellitus Heart disease High blood pressure Joint implants/screws Scarlet fever Surgical History Surgery Date(Month/Year) 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
[2025-03-27 18:29] LABS: Anion Gap 14 (12-20); Blood Urea Nitrogen 60 mg/dL (9-16); Calcium 9.0 mg/dL (8.4-10.2); Carbon Dioxide 26 mmol/L (22-29); Chloride 102 mmol/L (96-108); Estimated Glomerular Filt Rate 32; Potassium 4.9 mmol/L (3.3-5.1); Sodium 137 mmol/L (135-145)
== END 2025-03-27 12:29 | disposition home or self-care (01) ==
LOC: HO.HKASLDS 12:28
PROVIDERS: Visit Provider Internal Medicine Hypertension Specialist
DX: N18.4 Chronic kidney disease, stage 4 (severe) (principal)
CPT/HCPCS: 36415; 80048

== ENCOUNTER 2025-04-04 10:19 | Outpatient (AMB) | payer MEDICARE, SELFPAY ==
--- OUTSIDE RECORDS SUMMARY | 2024-10-26 11:30 | XMS_ITS | Continuity of Care Document ---
Author Organization [facility] Address [address] [place] [id number] Phone Care Team Providers Care Engineer Systems Name Role Phone Alvin Girard Unavailable Unavailable Allergies, Adverse Reactions, Alerts Substance Reaction Status [...] Procedures Procedure Date Office/Outpt E&M Established 15 Mins- CT & [place] Duplex Scan-extrem Veins; Comp- CT & [place] Office/Outpt E&M Established 15 Mins Sep Duplex Scan-extrem Veins; / Office/Outpt E&M Established 15 Mins Feb Duplex Scan-extrem Veins; / Office/Outpt E&M Established 15 Mins Jan Advance Directives Directive Yes / No Effective Date File Name Other Directive No 10/26/2024 N/A WARNING:The information contained in this section [...] Copied on Encounter Office/Outpt E&M Established 15 Mins- [place] & [place] [facility], [address] [place] [address] Dr Kumar 1000[facility] Román Harrison [place], [id number], [place] tel:[phone] [facility] Restless legs syndromeEssent ial (primary) hypertensionLy mphedema, not elsewhere classifiedHere ditary lymphedemaChro armen venous hypertension (idiopathic) with other complications of bilateral lower extremityPerip heral vascular disease, unspecifiedTyp e 2 diabetes mellitus without complications 5 Ingrid Esquivel. [address] [place] [address], [facility] [place], [id number], [place]. tel:[phone] Referring Provider: Turner Booker MD, [address] [place] [address], [address]. tel:[phone] [place] [facility], [address] [place] [address] Dr Kumar 1000[facility] Román Harrison [place], [id number], [place] tel:[phone] [facility] Chronic venous hypertension (idiopathic) with other complications of bilateral lower extremity 5 Abiola Feldman. [address] [place] [address], [address], [place], [place], [id number], [place]. tel:[phone] Referring Provider: Turner Booker MD, [address] [place] [address], [id number]. tel:[phone] Office/Outpt E&M Established 15 Mins [place] [facility], [address] [place] [address] Dr Kumar 1000[facility] Román Harrison [place], [id number], [place] tel:[phone] [facility] Localized edemaRestless legs syndromeType 2 diabetes mellitus without complicationsE ssential (primary) hypertension b 4 Nash GREENE, RVT, JULISA Coronel. [address] [place] [address], [facility] [place], [id number], [place]. tel:[phone] Referring Provider: Turner Booker MD, [address] [place] [address], [address]. tel:[phone] [facility], [address] [place] [address] Dr [address], [place] Román, [id number], [place] tel:[phone] [facility] [place] Pain in right leg 4 Nash GREENE, RVT, VI Homer. [address] [place] [address], [facility] [place], [id number], [place]. tel:[phone] Referring Provider: Turner Booker MD, [address] [place] [address], [address]. tel:[phone] Office/Outpt E&M Established 15 Mins [facility], [address] [place] [address] Dr [address], [place] Román, [id number], [place] tel:[phone] [facility] [place] Chronic venous hypertension w oth comp of r low extrem 3 Brandyn GREENE FACS T VI Brittany Queen. [address] [place] [address], [facility] [place], [address], [place]. tel:[phone] Referring Provider: Brittany Ahumada MD FACS RVT [facility], [address] [place] [address], [facility] [place], [address]. tel:[phone] [facility], [address] [place] [address] Dr [address]Román [place], [id number], [place] tel:[phone] [facility] [place] Chronic venous hypertension w oth comp of r low extrem 3 Brandyn GREENE FACS RVT VI Brittany Queen. [address] [place] [address], [place] [address], [facility] [place], [address], [place]. tel:[phone] Referring Provider: Brittany Ahumada MD FACS RVT RP, [address] [place] [address], [facility] [place], [address]. tel:[phone] Office/Outpt E&M Established 15 Mins [facility], [address] [place] [address] Dr [address], [place] Román, [id number], tel:[phone] [facility] [place] Chronic venous hypertension w oth comp of r low extrem 3 Brandyn GREENE FACS T [facility] Brittany Queen. [address], [place] [address], [place], [address], [place]. tel:[phone] Referring Provider: Brittany Ahumada MD FACS T [facility], [address] [place] [address], [place], [address]. tel:[phone] Family History Family Member Type Diagnosis Age At Onset No Information Payers Payer name Insurance type Covered alliance party ID Authoriza tion(s) Medicare ADAN HEWITT [id number] [facility] CI [id number] Social History Type Description Quantity Date Captured [...] completed Goal Tobacco cessation counseling completed Goal Diet education completed Goal Tobacco cessation counseling completed Goal Tobacco cessation counseling completed Goal Tobacco cessation counseling completed Referral Ordered: Weight management: Referral to physician timeframe: 3 Months (related to Body mass index (BMI) 35.0-35.9, adult) ordered Referral Ordered: Weight management: Referral to physician timeframe: 3 Months (related to Body mass index (BMI) 35.0-35.9, adult) ordered History Of Present Illness Encounter Date Complaint History Of Prese nt Illness No Information Functional Status Date Functional Assessmen t No Information Instructions Date Instruction Additional Infor mation Compression stocking usage as conservative measure Related to Chronic venous hypertension (idiopathic) with other complications of bilateral lower extremity Patient education booklet given Related to Chronic venous hypertension (idiopathic) with other complications of bilateral lower extremity Diet education Related to Body mass index (BMI) 35.0-35.9, adult Giving Encouragement to exercise Related to Body mass index (BMI) 35.0-35.9, adult Lifestyle education Related to B vivian mass index (BMI) 35.0-35.9, adult Diet education Related to Body mass index [...]
--- NOTE | 2025-04-04 10:21 | HO.NEPHOV_ITS ---
Vital Signs 04/04/25 10:22 Height 5 ft 10 in BP 122/40 L Blood Pressure Location Rt brachial Position Sitting Intake Visit Reasons: 4mon follow-up w/labs LVM Extrusion Operator Required: No Accompanied by: Self / Same As Patient Allergies No Known Allergies Allergy (Mild, Verified 04/04/25 10:26) Medication List - Last Reconciled 04/04/25 by Tyler Bautista MD albuterol sulfate 90 mcg/actuation 2 puffs inhalation Q6H PRN apixaban (Eliquis) 2.5 mg PO BID aspirin (Adult Low Dose Aspirin) 81 mg PO DAILY diosmin complex no.1 (Vasculera) 1 tab PO DAILY fluticasone propion-salmeterol 100-50 mcg/dose (Wixela Inhub) 1 inh inhalation Q12H multivitamin 1 tab PO DAILY simvastatin (Zocor) 40 mg PO DAILY sodium zirconium cyclosilicate (Lokelma) 5 grams PO .twice a week tiotropium bromide 1.25 mcg/actuation (Spiriva Respimat) 2 puffs inhalation DAILY torsemide 20 mg PO DAILY vitamin B complex (B Complex-Vitamin B12 tablet) 1 tab PO DAILY HPI Comments Details: Edwardo is a pleasant elderly man with a history of longstanding diabetes mellitus hypertension with chronic disease. [facility] He has CKD with a baseline creatinine of around 2.2 mg/dL. He was accompanied by his family today. No specific complaints. He continues have leg edema. No shortness of breath. 12/08/23 ;Doing better;Torsemide was increased to 20 mg by cardiology;Creatinine is up to 2.6 02/02/2024. Overall doing well today. ; After lowering the torsemide to 10 mg serum creatinine is decreased to 2.2. ; He has lost about 1 lb since last visit. 05/10/24 ;Doing well. K and cr are up; No urinary sypmyoms 06/07/24 ;Tolerating lower dose of Lisniopril;;Cr improved;;On low K diet; K is normal 09/13/24 ;Still has dyspnea on exertion. Has lost about 5 lbs 12/06/24 Has had episodes of epistaxis ;Sometimes forgets to take Lokelma ; Has lost 4-5 lbs ;Breathing is stable 04/04/25 The patient is an 89-year-old male here for follow up for chronic kidney disease and hyperkalemia. He underwent an angiogram for peripheral artery disease, resulting in stent placement in the right leg. Post-procedure, he reports fatigue. Sustained ZHEN and hospitalzied at [facility]. On December 21, he was hospitalized for acute immobility and diagnosed with rhinovirus infection. The infection primarily affected his legs. Kidney function was monitored, and IV fluids were administered post-angiogram due to non- urination. He is on torsemide 20 mg and low potassium powder for hyperkalemia management. Blood pressure medications were adjusted from lisinopril to losartan, and he is currently off blood pressure medication. His blood pressure and potassium levels are stable, with improved kidney function. MEDICATIONS: - Torsemide 20 mg for hyperkalemia - Low potassium powder twice a week for hyperkalemia [facility] Social History Patient Tobacco Use Status: Former Tobacco user Physical Exam Vital Signs: Last Vital Signs BP 122/40 L 04/04/25 10:22 Const General: comfortable Nutritional Appearance: well nourished Orientation/consciousness: patient oriented x3 HEENT Head: No normal to inspection Mouth: moist mucous membranes Neck Neck: Yes supple and Yes no JVD Resp Auscultation: clear to auscultation bilaterally and no rales Cardio Jugular venous distension: no JVD Palpation: no palpable S3 and no palpable S4 Heart sounds: no rubs GI Palpation (GI): Soft to palpation and nontender Percussion: No Fluid wave present General: Yes no CVA tenderness Back/Spine/Pelvis Back: no CVA tenderness Skin General skin exam: no rashes or lesions noted Neuro General: patient oriented x3 Extrem General: No clubbing and Yes edema Results Reviewed Nephrology Results: Hgb, (14.0-18.0) 9.8 g/dl L 11/28/24 WBC, (4.8-10.8) 6.2 X10*3/uL 11/28/24 Plt Count, (160-400) 153 X10*3/uL L 11/28/24 Sodium, (135-145) 137 mmol/L 03/27/25 Potassium, (3.3-5.1) 4.9 mmol/L 03/27/25 Chloride, (96-108) 102 mmol/L 03/27/25 Carbon Dioxide, (22-29) 26 mmol/L 03/27/25 BUN, (9-16) 60 mg/dL H 03/27/25 Creatinine, (0.5-1.4) 1.98 mg/dL H 03/27/25 Calcium, (8.4-10.2) 9.0 mg/dL 03/27/25 Assessment & Plan Assessment & Plan (1) CKD (chronic kidney disease) stage 4, GFR 15-29 ml/min: Code(s): N18.4 - Chronic kidney disease, stage 4 (severe) Category: Medical Plan: . No signs and uremia. Goal is to slow the progression of kidney disease. Continue to avoid nephrotoxic agents including NSAIDs. He will benefit from SGLT 2 inhibitor Superimposed ZHEN Resolved Creatinine is down to 1.9 Clinically appears euvolemic Keep Torsemide 20 mg daily (2) Diabetes mellitus with chronic kidney disease: Code(s): E11.22 - Type 2 diabetes mellitus with diabetic chronic kidney disease Category: Medical Plan: . Goals maintain hemoglobin A1c less than 7%. He will benefit from weight loss. (3) Anemia due to chronic kidney disease: Code(s): N18.9 - Chronic kidney disease, unspecified; D63.1 - Anemia in chronic kidney disease Category: Medical Plan: No indication for Epogen yet. Iron /TIBC are acceptable Recheck HCT before next visit (4) HTN (hypertension): Code(s): I10 - Essential (primary) hypertension Category: Medical Plan: Blood pressures are acceptable. Needs to stay on low-sodium diet. No changes were made to the antihypertensive medication today. Goal is met and blood pressures in 130/80 Avoid hypotension. (5) Hyperkalemia: Code(s): E87.5 - Hyperkalemia Category: Medical Plan: Off Lisinopril now Low K diet Decrease Lokelma 5 gm PO once a week and DC if K is normal Orders: Orders Complete Blood Count no Diff 4 Months I10 - Essential (primary) hypertension, N18.4 - Chronic kidney disease, stage 4 (severe) Basic Metabolic Panel 4 Months I10 - Essential (primary) hypertension, N18.4 - Chronic kidney disease, stage 4 (severe) Scribe Plan - Not visible on output: Fax to Dr Sheryl Judge - [phone] Coding Level of Care Code Est Pt Level 4 (69100) Diagnoses CKD (chronic kidney disease) stage 4, GFR 15-29 ml/min N18.4 Diabetes mellitus with chronic kidney disease E11.22 Anemia due to chronic kidney disease N18.9; D63.1 HTN (hypertension) I10 Hyperkalemia E87.5
[2025-04-04 10:22] VITALS: BP 122/40
--- OUTSIDE RECORDS SUMMARY | 2025-04-04 11:32 | XMS_ITS | Clinical Summary ---
Author Organization [address] [facility] Address [address] [place] [address] Phone Care Team Providers Care Policy Officer Name Role Phone Turner Booker MD Primary Care Provider [phone] Allergies Active Allergy Reactions Criticality Noted Date Comments Cortisone 11/11/2024 Pt and state he is not allergic to cortisone Medications tiotropium (SPIRIVA RESPIMAT) 2.5 mcg/actuation inhalation spray Inhale 2 puffs by mouth 1 (one) time each day. 024 Active albuterol HFA (PROAIR HFA ; PROVENTIL HFA ; VENTOLIN HFA) 90 mcg/actuation inhaler Inhale 2 Puffs into the lungs every 4 hours as needed for Cough or Wheezing. 021 Active multivit with minerals/lute in (MULTIVITAMIN 50 PLUS ORAL) TAKE 1 TABLET BY MOUTH ONCE DAILY FOR VITAMIN SUPPLEMENTATION 024 Active aspirin 81 mg EC tablet Take 1 tablet (81 mg total) by mouth 1 (one) time each day. Active apixaban (ELIQUIS) 2.5 mg tablet Take 1 tablet (2.5 mg total) by mouth 2 (two) times a day. 180 tablet 2 025 Active fluticasone-s almeterol (ADVAIR DISKUS) 250-50 mcg/dose diskus inhaler Inhale 1 puff by mouth 2 (two) times a day. Rinse mouth with water after use to reduce aftertaste and incidence of candidiasis. Do not swallow. Active simvastatin (ZOCOR) 40 mg tablet Take 1 tablet (40 mg total) by mouth at bedtime. Active ferrous sulfate 325 mg (65 mg elemental iron) tablet Take 1 tablet (325 mg total) by mouth 1 (one) time each day. Active cholecalcifer ol (VITAMIN D-3) 25 mcg (1,000 unit) tablet Take 1 tablet (1,000 Units total) by mouth 1 (one) time each day. Active torsemide (DEMADEX) 10 mg tablet Take 2 tablets (20 mg total) by mouth 1 (one) time each day. 90 tablet 3 025 Active cyanocobalami n (VITAMIN B-12) 100 mcg tablet Take 1 tablet (100 mcg total) by mouth 1 (one) time each day. Active pioglitazone (ACTOS) 15 mg tablet Take 1 tablet (15 mg total) by mouth 1 (one) time each day. Active diosmin complex no.1 (Vasculera) 630 mg tablet Take by mouth. A ctive collagenase (SANTYL) 250 unit/gram ointmentIndic ations:Pressu re ulcer of left heel, stage 3 (CMS/HCC V24, CMS/HCC V28),Pressure injury of right heel, stage 4 (CMS/HCC V24, CMS/HCC V28) Apply topically 1 (one) time each day. 357 g 2 025 2024 Active flaxseed oiL oil Take 1,200 mg by mouth daily. 2024 Discontinued glipiZIDE (GLUCOTROL XL) 10 mg 24 hr tablet Take 1 tablet (10 mg total) by mouth 1 (one) time each day. 2024 Discontinued(F ormulary change) tamsulosin (FLOMAX) 0.4 mg 24 hr capsule Take 1 capsule (0.4 mg total) by mouth 1 (one) time each day. Capsules should be taken 30 minutes following the same meal each day. 025 2024 Discontinued(D iscontinued by another clinician) insulin lispro 100 unit/mL injection Inject 2-10 Units under the skin 3 (three) times a day before meals. -Administer within 15 minutes of a meal 2024 Discontinued ascorbic acid (VITAMIN C) 500 mg CR capsule Take 1 capsule (500 mg total) by mouth 1 (one) time each day. 2024 Discontinued torsemide (DEMADEX) 10 mg tablet Take 1 tablet (10 mg total) by mouth 1 (one) time each day. 2024 Discontinued(R eorder) lisinopriL (PRINIVIL,ZES TRIL) 5 mg tablet Take 1 tablet (5 mg total) by mouth 1 (one) time each day. 2024 Discontinued(F ormulary change) losartan (COZAAR) 100 mg tablet Take 1 tablet (100 mg total) by mouth 1 (one) time each day. 2024 Discontinued(S top Taking at Discharge) Active Problems Problem Noted Date Diagnosed Date Pressure injury of right carol ann l, stage 4 ([facility] V24, CMS/[facility] V28) 03/26/2025 Dermatitis associated with moisture 03/26/2025 Skin ulcer of groin, limited to breakdown of skin ([facility] V24, CMS/HCC V28) 03/26/2025 Acute kidney injury superimposed on CKD ([facility] V24) 03/22/2025 Pressure ulcer of left heel, stage 3 ([facility]/HCC V24, CMS/HCC V28) 03/05/2025 Pressure ulcer of right heel , stage 3 ([facility]/HCC V24, CMS/HCC V28) 03/05/2025 Pressure ulcer of right ankl e, stage 3 (CMS/HCC V24, CMS/HCC V28) 03/05/2025 TIA (transient ischemic attack) 01/16/2025 Atrial fibrillation (CMS/[facility] V24, CMS/[facility] V28) 0 12/19/2021 Overview (07/12/2024): Last Assessment & Plan: Heart rate controlled with no need for rate control medication. On reduced dose Eliquis. Assessment & Plan (03/08/2025 4:57 PM EDT): Has been chronic. He has been on reduced dose Eliquis due to combination of age and renal function. The last hemoglobin was 8.3. He appears pale. Will repeat H&H. Assessment & Plan (09/11/2024 4:55 PM EST): Heart rates in normal range without requirement of rate control medications. He is asymptomatic. Will continue monitor. Atrial flutter (CMS/HCC V24, CMS/HCC V28) 2020 Overview (07/12/2024): Dose adjusted apixaban [...] diagnosed COPD. Congestive heart failure (CMS/HCC V24, CMS/HCC V 28) 08/24/2020 Overview (07/12/2024): Last Assessment & Plan: With preserved EF. Stable. On low-dose torsemide. Cardiac PYP scan negative. Assessment & Plan (03/08/2025 4:57 PM EDT): Appears small volume overloaded. Will resume torsemide 20 mg a daily. Will obtain BMP, BNP today. Orders: Basic metabolic panel; Future CBC and differential; Future Assessment & Plan (09/11/2024 4:55 PM EST): Appears euvolemic. Continue low-dose torsemide. Coronary artery disease invo lving coronary bypass graft of big sandy heart without angina pectoris 08/24/2020 Overview (07/12/2024): [...] symptoms. Continue current regimen. Assessment & Plan (03/08/2025 4:57 PM EDT): No angina symptom. Continue current regimen. Assessment & Plan (09/11/2024 [...] Type 2 diabetes mellitus wit h cataract ([facility] V24, [facility] V28) 01/24/2018 Diabetic cataract ([facility] V24, [facility] V28) 06/2018 DRAKE on CPAP 01/11/2018 Resolved Problems Problem Noted Date Diagnosed Date Resolved Date Acute on chronic diastolic c ongestive heart failure ([facility] V24, [facility] V28) 12/22/202412/30 Community acquired pneumonia 12/21/2024 12/30/2024 Encounters Date Type Department Care Team Description 03/26/2025 11:00 AM EDT Office Visit [facility] [address] [place] [phone] Tatum De La Paz MD Pressure ulcer of left heel, stage 3 ([facility] V24, [facility] V28) (Primary Dx); Pressure injury of right heel, stage 4 ([facility] V24, [facility] V28); Dermatitis associated with moisture; Skin ulcer of groin, limited to breakdown of skin ([facility] V24, [facility] V28) 03/22/2025 6:06 AM EDT - 03/23/2025 2:33 PM EDT Hospital Encounter [facility]rology Unit [address] [place] [phone] Ellen Love MD Landry, Jonathan P, MD Shapiro, Benjamin, DO Alam, Aroosa, MD Acute kidney injury superimposed on chronic kidney disease ([facility] V24) (Primary Dx); Decreased urination; Acute kidney injury superimposed on CKD ([facility] V24) Discharge Disposition: Home-Health Care [facility] [place] [facility] 03/08/2025 1:00 PM EDT Office Visit [facility] [address] [phone] Chayo Xavier MD Congestive heart failure, unspecified HF chronicity, unspecified heart failure type ([facility] V24, [facility] V28) (Primary Dx); Coronary artery disease involving coronary bypass graft of big sandy heart without angina pectoris; Chronic atrial fibrillation ([facility] V24, [facility] V28) 03/05/2025 11:00 AM EDT Office Visit [facility] [address] [place] [phone] Tatum De La Paz MD Pressure ulcer of left heel, stage 3 ([facility] V24, [facility] V28) (Primary Dx); Pressure injury of right heel, stage 4 ([facility], [facility] V28); Pressure ulcer of right ankle, stage 3 ([facility], [facility] V28) 03/02/2025 Telephone [facility] - [address] [phone] Chayo Xavier MD symptoms 02/19/2025 10:15 AM EDT Office Visit [facility] [address] [place] [phone] Tatum De La Paz MD Pressure ulcer of left heel, stage 3 ([facility] V24, [facility] V28) (Primary Dx); Pressure ulcer of right heel, stage 3 ([facility], [facility] V28); Pressure ulcer of right ankle, stage 3 ([facility] V[facility], [facility] V28) 02/15/2025 Lab Requisition [facility] [address] [place] [phone] Lenin Ford MD Chronic kidney disease, unspecified; Anemia, unspecified; Vitamin D deficiency, unspecified 02/13/2025 Lab Requisition [facility] [address] [place] [phone] Lenin Ford MD Peripheral vascular disease, unspecified ([facility] V24) 01/31/2025 Lab Requisition [facility] [address] [place] [phone] Lenin Ford MD Type 2 diabetes mellitus without complications ([facility] V24, [facility] V28) 01/31/2025 Lab Requisition [facility] [address] [place] [phone] Lenin Ford MD Encounter for other general examination; Essential (primary) hypertension; Chronic obstructive pulmonary disease, unspecified ([facility] V[facility], [facility] V28); Unspecified diastolic (congestive) heart failure ([facility] V[facility], [facility] V28) 01/27/2025 Lab Requisition [facility] [address] [place] [phone] Lenin Ford MD Type 2 diabetes mellitus without complications ([facility] V[facility], [facility] V28); Chronic kidney disease, stage 4 (severe) ([facility] V[facility], [facility] V28) 01/16/2025 8:24 AM EDT - 01/18/2025 3:39 PM EDT Hospital Encounter [facility] [address] [place] [phone] Maribel Juarez MD Bell, Alistair A, MD TIA (transient ischemic attack) (Primary Dx); Symptomatic anemia; PVD (peripheral vascular disease) ([facility] V[facility]) Discharge Disposition: [facility] Facility from Last 3 Months Surgical History Surgery Date Site/Laterality Comments CORONARY ARTERY BYPASS GRAFT PROCEDURE: HISTORICAL CABG CATARACT EXTRACTION PROCEDURE: HISTORICAL CATARACT REMOVAL KNEE SURGERY PROCEDURE: HISTORICAL KNEE SURGERY; COMMENT: arthroplasty OTHER SURGICAL HISTORY PROCEDURE: ID ANES HRT PERICARDIAL SAC& GRT VESLS W/O SOFTWARE SECURITY ARCHITECT OXT OTHER SURGICAL HISTORY PROCEDURE: ID ANESTH OPEN/SURG ARTHRS TOTAL KNEE ARTHROPLASTY; COMMENT: [...] diabetes mellitus wit h cataract ([facility] V[facility], [facility] V28) 01/24/2018 DX:Type 2 diabetes mellitus with cataract ([facility]) Hyperlipidemia 01/24/2018 DX:Hyperlipidemi a; COMMENT: CABG Diabetic cataract ([facility] V 24, [facility] V28) 01/24/2018 DX:Diabetic cataract ([facility]) Heart disease DX:Heart disease Diabetes ([facility] V24, [facility] V28) DX:Diabetes ([facility]) Hypertension DX:Hypertension Anemia DX:Anemia History of joint problems DX:His tory of joint problems CKD (chronic kidney disease) Family History Medical History Relation Name Comments [...] EDT Inhaled Oxygen Concentration - - Weight 102 kg (225 lb 12.8 oz) 03/23/2025 6:00 A M EDT Height 175.3 cm (5' 9 ) 03/22/2025 6:25 AM EDT Body Mass Index 33.34 03/22/2025 6:25 AM EDT Plan of Treatment Upcoming Encounters Date Type Department Care Team (Late st Contact Info) Description 04/09/2025 3:00 PM EDT Clinical Support [facility] [address] [place] [phone] 04/17/2025 3:00 PM EDT Consult General Surgery - [place] [address] [phone] Fitz Alford MD 175 [facility] [address] [place] [address] 06/29/2025 2:40 PM EST Office Visit [facility] [address] [facility] [address] [place] [phone] Lanie Presley NP [address] [place] [address] Health Maintenance Due Date Last Done Comments Diabetes: Annual Foot Exam 1945 Diabetes: Annual Retina Eye Exam 1945 Medicare Annual Wellness Visit 05/08/2023 05/08/2022 Depression Screening 08/16/2024 DTaP,Tdap,and Td Vaccines (3 - Td or Tdap) 12/20/2024 12/20/2014, 12/20/2014 Influenza Vaccine (#1) 2025 , 07/12/2023, 05/27/2023, Additional history exists COVID-19 Vaccine (6 - Pfizer risk season) 2025 11/08/2024, 07/20/2023, 08/05/2021, Additional history exists Diabetes: Blood Sugar Control Test (HGBA1C) 07/04/2025 01/01/2025 Social Influencers of Health Screening 12/29/2025 12/29/2024 Falls Risk Assessment 03/23/2026 03/23/2025 Hypertension/CHF/CAD Annual BMP Blood Test 03/23/2026 03/23/2025, 03/22/2025, 03/22/2025, Additional history exists Cholesterol Screening (Lipid Panel) 02/09/2029 02/10/2024, 02/10/2024 Zoster Vaccines Completed 11/03/2021, 08/17, 06/02/2012 RSV Immunization Adult Patients Completed 05/31/2023 Pneumococcal Vaccine: 50+ Years Completed 10/05/2024, 12/20/2014, [...] on patient's age to complete this topic Goals Goal Patient Goal Type Associated Problems Recent Progress Patient-Stated? Author Decrease Wound Volume by X% by date (in notes) Care Plan Impaired Tissue On track( 025 12:19 PM EDT) Pauline Delong RN Patient and Caregiver Understand Wound Care Education Care Plan Impaired Tissue On track( 025 12:19 PM EDT) Pauline Delong RN Wound volume breakdown reduced by X% by week 4 Care Plan Impaired Tissue No Pauline Fallon RN Wound volume breakdown reduced by X% by week 8 Care Plan Impaired Tissue No Pauline Fallon RN Wound volume breakdown reduced by X% by week 12 Care Plan Impaired Tissue No Pauline Fallon RN Quit using tobacco (cigarettes, smokeless, etc) Care [...] omised skin integrity. No Pauline Fallon RN Procedures Procedure Name Priority Date/Time Associated Diagnosis Comments DEBRIDEMENT Routine 03/26/2025 11:00 AM EDT Pressure injury of right heel, stage 4 (CMS/HCC V24, CMS/[facility] V28) ECG OUTSIDE 03/24/2025 POCT GLUCOSE BLOOD Routine 03/23/2025 11 :53 AM EDT POCT GLUCOSE BLOOD Routine 03/23/2025 8: 10 AM EDT CBC WITH AUTO DIFFERENTIAL Routine 03/23/2025 5:58 AM EDT MAGNESIUM Routine 03/23/2025 5:58 AM EDT COMPREHENSIVE METABOLIC PANEL Routine 03/23/2025 5:58 AM EDT CBC AND DIFFERENTIAL Routine 03/23/2025 5:58 AM EDT POCT GLUCOSE BLOOD Routine 03/22/2025 7: 27 PM EDT CPAP NIV Routine 03/22/2025 6:28 PM EDT POCT GLUCOSE BLOOD Routine 03/22/2025 4: 36 PM EDT OSMOLALITY, URINE STAT 03/22/2025 1:1 8 PM EDT SODIUM, URINE, RANDOM STAT 03/22/2025 1:18 PM EDT XR CHEST 1 VIEW STAT 03/22/2025 12:35 PM EDT OSMOLALITY STAT Add-on 03/22/2025 11:54 AM EDT BASIC METABOLIC PANEL Timed 03/22/2025 11:54 AM EDT MAGNESIUM STAT Add-on 03/22/2025 11:54 AM EDT B-TYPE NATRIURETIC PEPTIDE STAT 03/22/2025 11:[address] ABDOMEN PELVIS WO CONTRAST STAT 03/22/2025 10:47 AM EDT CBC WITH AUTO DIFFERENTIAL STAT 03/22/2025 8:03 AM EDT CBC AND DIFFERENTIAL STAT 03/22/2025 8:03 AM EDT COMPREHENSIVE METABOLIC PANEL STAT 03/22/2025 8:03 AM EDT GARCIA URINE CULTURE TUBE STAT 03/22/2025 6:37 AM EDT URINALYSIS WITH REFLEX MICROSCOPIC AND CULTURE STAT 03/22/2025 6:37 AM EDT URINALYSIS WITH REFLEX MICROSCOPIC AND CULTURE STAT 03/22/2025 6:37 AM EDT CBC WITH AUTO DIFFERENTIAL Routine 03/08/2025 2:33 PM EDT Congestive heart failure, unspecified HF chronicity, unspecified heart failure type (CMS/HCC V24, CMS/HCC V28) BASIC METABOLIC PANEL Routine 03/08/2025 2:33 PM EDT Congestive heart failure, unspecified HF chronicity, unspecified heart failure type (CMS/HCC V24, CMS/HCC V28) CBC AND DIFFERENTIAL Routine 03/08/2025 2:33 PM EDT Congestive heart failure, unspecified HF chronicity, unspecified heart failure type (CMS/HCC V24, CMS/HCC V28) DEBRIDEMENT Routine 03/05/2025 11:00 AM EDT Pressure ulcer of left heel, stage 3 (CMS/HCC V24, CMS/HCC V28) DEBRIDEMENT Routine 02/19/2025 10:15 AM EDT Pressure ulcer of right heel, stage 3 (CMS/HCC V24, CMS/HCC V28) DEBRIDEMENT Routine 02/19/2025 10:15 AM EDT Pressure ulcer of left heel, stage 3 (CMS/HCC V24, CMS/HCC V28) SST - GOLD Routine 02/15/2025 11:48 AM EDT Chronic kidney disease, unspecified Anemia, unspecified Vitamin D deficiency, unspecified LT BLUE - NA CITRATE Routine 02/15/2025 11:48 AM EDT Chronic kidney disease, unspecified Anemia, unspecified Vitamin D deficiency, unspecified PARATHYROID HORMONE INTACT Routine 02/15/2025 11:48 AM EDT Chronic kidney disease, unspecified Anemia, unspecified Vitamin D deficiency, unspecified VITAMIN D 25 HYDROXY Routine 02/15/2025 11:48 AM EDT Chronic kidney disease, unspecified Anemia, unspecified Vitamin D deficiency, unspecified VITAMIN B12 Routine 02/15/2025 11:48 AM EDT Chronic kidney disease, unspecified Anemia, unspecified Vitamin D deficiency, unspecified FERRITIN Routine 02/15/2025 11:48 AM EDT Chronic kidney disease, unspecified Anemia, unspecified Vitamin D deficiency, unspecified FOLATE Routine 02/15/2025 11:48 AM EDT Chronic kidney disease, unspecified Anemia, unspecified Vitamin D deficiency, unspecified IRON AND TIBC Routine 02/15/2025 11:48 AM EDT Chronic kidney disease, unspecified Anemia, unspecified Vitamin D deficiency, unspecified COMPREHENSIVE METABOLIC PANEL Routine 02/15/2025 11:48 AM EDT Chronic kidney disease, unspecified Anemia, unspecified Vitamin D deficiency, unspecified COMPLETE BLOOD COUNT Routine 02/15/2025 11:48 AM EDT Chronic kidney disease, unspecified Anemia, unspecified Vitamin D deficiency, unspecified BASIC METABOLIC PANEL Routine 02/13/2025 5:10 AM EDT Peripheral vascular disease, unspecified (CMS/HCC V24) BASIC METABOLIC PANEL Routine 02/01/2025 6:40 AM EDT Type 2 diabetes mellitus without complications (CMS/HCC V24, CMS/HCC V28) CBC WITH AUTO DIFFERENTIAL Routine 01/31/2025 5:00 AM EDT Encounter for other general examination Essential (primary) hypertension Chronic obstructive pulmonary disease, unspecified (CMS/HCC V24, CMS/HCC V28) Unspecified diastolic (congestive) heart failure (CMS/HCC V24, CMS/HCC V28) CBC AND DIFFERENTIAL Routine 01/31/2025 5:00 AM EDT Encounter for other general examination Essential (primary) hypertension Chronic obstructive pulmonary disease, unspecified (CMS/HCC V24, CMS/HCC V28) Unspecified diastolic (congestive) heart failure (CMS/HCC V24, CMS/HCC V28) BASIC METABOLIC PANEL Routine 01/27/2025 11:33 AM EDT Type 2 diabetes mellitus without complications ([facility] V24, [facility] V28) Chronic kidney disease, stage 4 (severe) ([facility] V24, [facility] V28) POCT GLUCOSE BLOOD Routine 01/18/2025 12 :32 PM EDT MAGNESIUM Routine 01/18/2025 6:06 AM EDT BASIC METABOLIC PANEL Routine 01/18/2025 6:06 AM EDT COMPLETE BLOOD COUNT Routine 01/18/2025 6:06 AM EDT POCT GLUCOSE BLOOD Routine 01/17/2025 8: 10 PM EDT VAS US DUPLEX LOWER EXT ARTERY BILAT Routine 01/17/2025 8:09 PM EDT PVD (peripheral vascular disease) ([facility] V24) POCT GLUCOSE BLOOD Routine 01/17/2025 3: 52 PM EDT SST - GOLD Routine 01/17/2025 1:35 PM EDT EXTRA TUBES Routine 01/17/2025 1:35 PM EDT HEMOGLOBIN AND HEMATOCRIT STAT 01/17/2025 1:35 PM EDT POCT GLUCOSE BLOOD Routine 01/17/2025 12 :08 PM EDT POCT GLUCOSE BLOOD Routine 01/17/2025 8: 12 AM EDT COMPLETE BLOOD COUNT Routine 01/17/2025 3:45 AM EDT BASIC METABOLIC PANEL Routine 01/17/2025 3:45 AM EDT ECG ANNOTATED 01/17/2025 POCT GLUCOSE BLOOD Routine 01/16/2025 8: 11 PM EDT MR BRAIN WO CONTRAST Routine 01/16/2025 7:27 PM EDT POCT GLUCOSE BLOOD Routine 01/16/2025 3: 24 PM EDT TRANSFUSE RED BLOOD CELLS STAT 01/16/2025 3:00 PM EDT CPAP NIV Routine 01/16/2025 2:24 PM EDT TYPE AND SCREEN STAT 01/16/2025 12:33 PM EDT PREPARE RBC STAT 01/16/2025 10:13 AM EDT XR CHEST 1 VIEW STAT 01/16/2025 9:07 AM EDT CBC WITH AUTO DIFFERENTIAL STAT 01/16/2025 8:47 AM EDT ACTIVATED PARTIAL THROMBOPLASTIN TIME STAT 01/16/2025 8:47 AM EDT PROTHROMBIN TIME WITH INR STAT 01/16/2025 8:47 AM EDT BASIC METABOLIC PANEL STAT 01/16/2025 8:47 AM EDT CBC AND DIFFERENTIAL STAT 01/16/2025 8:47 AM EDT ECG 12-LEAD STAT 01/16/2025 8:[address] ANGIO HEAD/NECK STROKE WO AND/OR W CONTRAST STAT 01/16/2025 8:[address] HEAD STROKE WO CONTRAST STAT 01/16/2025 8:37 AM EDT HEMOGLOBIN A1C Routine 01/01/2025 10:39 AM EDT Essential (primary) hypertension Tachycardia, unspecified Hyperlipidemia, unspecified Anemia, unspecified Heart failure, unspecified (CMS/HCC V24, CMS/HCC V28) Unspecified atrial fibrillation (CMS/HCC V24, CMS/HCC V28) Type 2 diabetes mellitus without complications ([facility] V24, [facility] V28) LIPID PANEL Routine 02/10/2024 from Last 3 Months or Most Recently Relevant to Health Maintenance Results * Debridement Pressure Injury (cluster of 2) Right Heel (03/26/2025 11:00 AM EDT) Narrative Tatum De La Paz MD - 03/26/2025 11:00 AM EDT Tatum [...] MD IN CLINIC/BEDSIDE ORDERAB LES Final Result * ECG-Outside (03/24/2025) us Provider Onbase ECG ORDERABLES Final Result * (ABNORMAL) POCT Glucose, blood (03/23/2025 11:53 AM EDT) Only the most recent of11 resultswithin the time period is included. [facility] Glucose POCT 207(H) 70 - 100 mg/dL 03/23/2025 11:54 AM EDT [facility] Blood Capillary blood specimen / Unknown 03/23/2025 11:53 AM EDT 03/23/2025 11:56 AM EDT us Maegan Wheeler MD LAB POINT OF CARE TE ST DOCKED DEVICE UNSOLICITED RESULTS Final Result [facility] [address] [place] [address], [place] [phone] * (ABNORMAL) CBC auto differential (03/23/2025 5:58 AM EDT) Only the most recent of5 resultswithin the time period is included. [facility] WBC 7.5 4.8 - 10.8 K/mcL LAB HEMETOLOGY METHOD 03/23/2025 6:36 AM EDT [facility] RBC 3.20(L) 4.50 - 5.50 M/mcL LAB HEMETOLOGY METHOD 03/23/2025 6:[facility] Hemoglobin 8.5(L) 13.5 - 17.5 g/dL LAB HEMETOLOGY METHOD 03/23/2025 6:36 AM EDT [facility] Hematocrit 27.8(L) 42.0 - 54.0 % LAB HEMETOLOGY METHOD 03/23/2025 6:36 AM EDT [facility] MCV 86.1 79.0 - 98.0 FL LAB HEMETOLOGY METHOD 03/23/2025 6:36 [facility] MCH 26.3(L) 27.0 - 32.0 pcg LAB HEMETOLOGY METHOD 03/23/2025 6:36 AM [facility] MCHC 30.6(L) 32.0 - 37.0 g/dL LAB HEMETOLOGY METHOD 03/23/2025 6:36 AM [facility] RDW 15.7(H) 11.0 - 15.0 % LAB HEMETOLOGY METHOD 03/23/2025 6:36 AM [facility] Platelets 221 130 - 400 K/mcL LAB HEMETOLOGY METHOD 03/23/2025 6:36 AM [facility] MPV 9.8 7.0 - 11.0 FL LAB HEMETOLOGY METHOD 03/23/2025 6:36 AM [facility] NRBC 0.0 <1.0 % LAB HEMETOLOGY METHOD 03/23/2025 6:36 AM [facility] NRBC Absolute 0.00 <0.10 K/mcL LAB HEMETOLOGY METHOD 03/23/2025 6:36 AM [facility] Neutrophils Relative 69.9 % LAB HEMETOLOGY METHOD 03/23/2025 6:36 AM [facility] Lymphocytes Relative 10.1 % LAB HEMETOLOGY METHOD 03/23/2025 6:36 AM [facility] Monocytes Relative 8.1 % LAB HEMETOLOGY METHOD 03/23/2025 6:36 AM [facility] Eosinophils Relative 11.5 % LAB HEMETOLOGY METHOD 03/23/2025 6:36 AM [facility] Basophils Relative 0.1 % LAB HEMETOLOGY METHOD 03/23/2025 6:36 AM [facility] Immature Granulocytes Relative 0.3 % LAB HEMETOLOGY METHOD 03/23/2025 6:36 AM [facility] Neutrophils Absolute 5.25 1.50 - 7.00 K/mcL LAB HEMETOLOGY METHOD 03/23/2025 6:36 AM EDT [facility] Lymphocytes Absolute 0.76(L) 1.00 - 5.00 K/[facility] LAB HEMETOLOGY METHOD 03/23/2025 6:36 AM EDT [facility] Monocytes Absolute 0.61 0.20 - 1.00 K/[facility] LAB HEMETOLOGY METHOD 03/23/2025 6:36 AM EDT [facility] Eosinophils Absolute 0.86(H) 0.00 - 0.50 K/[facility] LAB HEMETOLOGY METHOD 03/23/2025 6:36 AM EDT [facility] Basophils Absolute 0.01 0.00 - 0.20 K/[facility] LAB HEMETOLOGY METHOD 03/23/2025 6:36 AM EDT [facility] Immature Granulocytes Absolute 0.02 0.00 - 0.03 K/[facility] LAB HEMETOLOGY METHOD 03/23/2025 6:36 AM EDT [facility] Blood Venous blood specimen / Unknown Venipuncture / Unknown 03/23/2025 5:58 AM EDT 03/23/2025 6:22 AM EDT Tsering Monet MOISTURE TESTER LAB BLOOD ORDERABLES Fin al Result [facility] [address] [place] [address], * Magnesium (03/23/2025 5:58 AM EDT) Only the most recent of3 resultswithin the time period is included. Magnesium 2.3 1.9 - 2.6 mg/dL LAB CHEMISTRY METHOD 03/23/2025 7:27 AM EDT [facility] Blood Venous blood specimen / Unknown Venipuncture / Unknown 03/23/2025 5:58 AM EDT 03/23/2025 6:21 AM EDT us Tsering Mckinney Sosa Monet NP LAB BLOOD ORDERABLES Fin al Result [facility] [address] [place] [address], * (ABNORMAL) Comprehensive metabolic panel (03/23/2025 5:58 AM EDT) Only the most recent of3 resultswithin the time period is included. Sodium 136 133 - 145 mmol/L LAB CHEMISTRY METHOD 03/23/2025 7:27 AM [facility] Potassium 4.7 3.5 - 5.5 mmol/L LAB CHEMISTRY METHOD 03/23/2025 7:27 AM [facility] Chloride 102 96 - 110 mmol/L LAB CHEMISTRY METHOD 03/23/2025 7:27 AM [facility] CO2 25 21 - 32 mmol/L LAB CHEMISTRY METHOD 03/23/2025 7:27 AM [facility] Anion Gap 9 3 - 11 LAB CHEMISTRY METHOD 03/23/2025 7:27 AM [facility] Glucose 117(H) 70 - 100 mg/dL LAB CHEMISTRY METHOD 03/23/2025 7:27 AM [facility] BUN 67(H) 5 - 25 mg/dL LAB CHEMISTRY METHOD 03/23/2025 7:27 AM [facility] Creatinine 2.96(H) 0.70 - 1.30 mg/dL LAB CHEMISTRY METHOD 03/23/2025 7:27 AM [facility] eGFR 20(L) >=60 mL/min/1. 73m2 LAB CHEMISTRY METHOD 03/23/2025 7:27 AM [facility] Comment:Calculation based on the Chronic Kidney Disease Epidemiology Collaboration (CKD-EPI) equation refit without adjustment for race. BUN/Creatinine Ratio 22.6 LAB CHEMISTRY METHOD 03/23/2025 7:27 AM [facility] Calcium 8.6 8.5 - 10.5 mg/dL LAB CHEMISTRY METHOD 03/23/2025 7:27 AM [facility] AST (SGOT) 47(H) 10 - 42 unit/L LAB CHEMISTRY METHOD 03/23/2025 7:27 AM [facility] ALT (SGPT) 10 10 - 60 unit/L LAB CHEMISTRY METHOD 03/23/2025 7:27 AM [facility] Alkaline Phosphatase 47 42 - 121 unit/L LAB CHEMISTRY METHOD 03/23/2025 7:27 AM [facility] Total Protein 5.7(L) 6.0 - 8.0 g/dL LAB CHEMISTRY METHOD 03/23/2025 7:27 AM [facility] Albumin 2.9(L) 3.2 - 5.0 g/dL LAB CHEMISTRY METHOD 03/23/2025 7:27 AM [facility] Total Bilirubin 0.6 0.0 - 1.4 mg/dL LAB CHEMISTRY METHOD 03/23/2025 7:27 AM [facility] Blood Venous blood specimen / Unknown Venipuncture / Unknown 03/23/2025 5:58 AM EDT 03/23/2025 6:21 AM EDT Tsering Monet NP LAB BLOOD ORDERABLES Fin al Result [facility] [address] [place] [address], * Sodium, urine, random (03/22/2025 1:18 PM EDT) Sodium, Ur 27 mmol/L LAB CHEMISTRY METHOD 03/22/2025 2:43 PM EDT [facility] Urine Urine specimen from urethra / Unknown Non-blood Collection / Unknown 03/22/2025 1:18 PM EDT 03/22/2025 2:22 PM EDT Tsering Monet MOISTURE TESTER LAB URINE ORDERABLES Fin al Result Performing Organization Address [facility] [[email or web address]] Co de Phone Number [facility] [address] [place] [address], [place] [phone] * (ABNORMAL) Osmolality, urine (03/22/2025 1:18 PM EDT) Osmolality, Urine 245(L) 300 - 1,300 mOsm/kg LAB CHEMISTRY METHOD 03/22/2025 4:48 PM EDT [facility] Urine Urine specimen from urethra / Unknown Non-blood Collection / Unknown 03/22/2025 1:18 PM EDT 03/22/2025 2:22 PM EDT us Rey Santos DO LAB URINE ORDERABLES Final R esult Performing Organization Address [facility] de Phone Number [facility] [address] [place] [address], [place] [phone] * XR Chest 1 View (03/22/2025 12:35 PM EDT) Only the most recent of2 resultswithin the time period is included. Anatomical Region Laterality Modality Body Radiographic Lydia ging 03/22/2025 1:09 PM EDT Impressions 03/22/2025 1:10 PM EDT FINDINGS/IMPRESSION: Postoperative mediastinum. Cardiomegaly with diffuse pulmonary interstitial edema. Superimposed infiltrate not excluded. Small bilateral pleural effusions. Osteopenia and degenerative osseous changes. -------- FINAL REPORT -------- Dictated By: Stoney Pat Dictated Date: 03/22/2025 13:09 ET Assigned Physician: Stoney Pat Reviewed and Electronically Signed By: Stoney Pat Signed Date: 03/22/2025 13:10 ET Workstation ID: [id number] Transcribed By: Self Edit Transcribed Date: 03/22/2025 13:09 ET Narrative 03/22/2025 1:10 PM EDT XR CHEST 1 VIEW INDICATION: SOB, pulmonary edema suspected TECHNIQUE: XR CHEST 1 VIEW COMPARISON: No priors available. Procedure Note Stoney Pat MD - 03/22/2025 XR CHEST 1 VIEW INDICATION: SOB, pulmonary edema suspected TECHNIQUE: XR CHEST 1 VIEW COMPARISON: No priors available. IMPRESSION: FINDINGS/IMPRESSION: Postoperative mediastinum. Cardiomegaly with diffusepulmonary interstitial edema. Superimposed infiltrate not excluded.Small bilateral pleural effusions. Osteopenia and degenerative osseouschanges. -------- FINAL REPORT -------- Dictated By: Stoney Pat Dictated Date: 03/22/2025 13:09 ET Assigned Physician: Stoney Pat Reviewed and Electronically Signed By: Stoney Pat Signed Date: 03/22/2025 13:10 ET Workstation ID: [id number] Transcribed By: Self Edit Transcribed Date: 03/22/2025 13:09 ET Tsering Monet MOISTURE TESTER IMG XR PROCEDURES Final Result * (ABNORMAL) Osmolality (03/22/2025 11:54 AM EDT) Osmolality Apple 301(H) 280 - 300 mOsm/kg LAB CHEMISTRY METHOD 03/22/2025 12:59 PM EDT [facility] Blood Venous blood specimen / Unknown Venipuncture / Unknown 03/22/2025 11:54 AM EDT 03/22/2025 12:00 PM EDT Tsering Monet MOISTURE TESTER LAB BLOOD ORDERABLES Fin al Result [facility] [address] [place] [address], * (ABNORMAL) B-type natriuretic peptide (03/22/2025 11:54 AM EDT) BNP 970(H) <=100 pcg/mL LAB CHEMISTRY METHOD 03/22/2025 12:37 PM EDT [facility] Blood Venous blood specimen / Unknown Venipuncture / Unknown 03/22/2025 11:54 AM EDT 03/22/2025 12:00 PM EDT us Tsering Mckinney Sosa Monet MOISTURE TESTER LAB BLOOD ORDERABLES Fin al Result [facility] [address] [place] [address], * (ABNORMAL) Basic metabolic panel (03/22/2025 11:54 AM EDT) Only the most recent of8 resultswithin the time period is included. Sodium 132(L) 133 - 145 mmol/L LAB CHEMISTRY METHOD 03/22/2025 12:27 PM [facility] Potassium 4.3 3.5 - 5.5 mmol/L LAB CHEMISTRY METHOD 03/22/2025 12:27 PM [facility] Chloride 98 96 - 110 mmol/L LAB CHEMISTRY METHOD 03/22/2025 12:27 PM [facility] CO2 24 21 - 32 mmol/L LAB CHEMISTRY METHOD 03/22/2025 12:27 PM [facility] Anion Gap 10 3 - 11 LAB CHEMISTRY METHOD 03/22/2025 12:27 PM [facility] Glucose 171(H) 70 - 100 mg/dL LAB CHEMISTRY METHOD 03/22/2025 12:27 PM [facility] BUN 70(H) 5 - 25 mg/dL LAB CHEMISTRY METHOD 03/22/2025 12:27 PM [facility] Creatinine 3.56(H) 0.70 - 1.30 mg/dL LAB CHEMISTRY METHOD 03/22/2025 12:27 PM [facility] eGFR 16(L) >=60 mL/min/1. 73m2 LAB CHEMISTRY METHOD 03/22/2025 12:27 PM EDT [facility] Comment:Calculation based on the Chronic Kidney Disease Epidemiology Collaboration (CKD-EPI) equation refit without adjustment for race. BUN/Creatinine Ratio 19.7 LAB CHEMISTRY METHOD 03/22/2025 12:27 PM EDT [facility] Calcium 8.1(L) 8.5 - 10.5 mg/dL LAB CHEMISTRY METHOD 03/22/2025 12:27 PM EDT [facility] Blood Venous blood specimen / Unknown Venipuncture / Unknown 03/22/2025 11:54 AM EDT 03/22/2025 12:00 PM EDT us Tsering Monet MOISTURE TESTER LAB BLOOD ORDERABLES Fin al Result [facility] [address] [place] [address], * CT Abdomen Pelvis wo Contrast (03/22/2025 10:47 AM EDT) Anatomical Region Laterality Modality Body Computed Tomogra phy 03/22/2025 11:0 0 AM EDT Impressions 03/22/2025 11:14 AM EDT 1. Moderate right and small left pleural effusions with associated compressive atelectasis. Mild anasarca. 2. Cholelithiasis and choledocholithiasis without significant biliary ductal dilatation. 3. Other incidental findings as detailed above. -------- FINAL REPORT -------- Dictated By: Jay Leyva Dictated Date: 03/22/2025 11:00 ET Assigned Physician: Jay Leyva Reviewed and Electronically Signed By: Jay Leyva Signed Date: 03/22/2025 11:14 ET Workstation ID: [id number] Transcribed By: Self Edit Transcribed Date: 03/22/2025 11:09 ET Narrative 03/22/2025 11:14 AM EDT PROCEDURE: CT of the abdomen and pelvis without intravenous contrast. HISTORY: Decreased urinary output. COMPARISON: Ultrasound 12/27/2024. TECHNIQUE: Noncontrast CT of the abdomen and pelvis with coronal and sagittal reformats. Dose length product: 1137 mGy-cm. FINDINGS: Lung bases: Moderate right and small left pleural effusions with associated compressive atelectasis. Cardiac: Mild cardiomegaly and coronary artery calcification. Liver: Limited evaluation without intravenous contrast. No visible abnormality. Biliary: Numerous small calcified gallstones. There are also small stones in the cystic and common duct. No significant ductal dilatation. Pancreas: Limited evaluation without intravenous contrast. No visible abnormality. Spleen: Limited evaluation without intravenous contrast. No visible abnormality. Adrenal glands: Normal. Kidneys: Limited evaluation without intravenous contrast. Mild bilateral cortical thinning. Normal appearance of the ureters. Retroperitoneum: No mass or adenopathy. Abdominal vasculature: Extensive atherosclerotic calcifications. Bowel/mesentery: Mild anasarca, most prominent in the presacral region. No obstruction or adenopathy. No mass or ascites. Mild circumferential mural thickening of the rectum. Redundant sigmoid. Normal appendix. Abdominal wall: Mild anasarca. Small fat-containing paraumbilical hernia. Pelvic nodes: No adenopathy. Pelvic organs: Urinary bladder is mildly distended. The urinary bladder contents are more hyperattenuating than simple fluid (approximately 60 Hounsfield units). Small prostate gland. Bones: Diffusely demineralized. Prominent degenerative changes of the spine. Mild degenerative changes of the hips, pubic symphysis, and sacroiliac joints. Procedure Note Jay Leyva MD - 03/22/2025 PROCEDURE: CT of the abdomen and pelvis without intravenous contrast. HISTORY: Decreased urinary output. COMPARISON: Ultrasound 12/27/2024. TECHNIQUE: Noncontrast CT of the abdomen and pelvis with coronal andsagittal reformats. Dose length product: 1137 mGy-cm. FINDINGS: Lung bases: Moderate right and small left pleural effusions withassociated compressive atelectasis. Cardiac: Mild cardiomegaly and coronary artery calcification. Liver: Limited evaluation without intravenous contrast. No visibleabnormality. Biliary: Numerous small calcified gallstones. There are also small stonesin the cystic and common duct. No significant ductal dilatation. Pancreas: Limited evaluation without intravenous contrast. No visibleabnormality. Spleen: Limited evaluation without intravenous contrast. No visibleabnormality. Adrenal glands: Normal. Kidneys: Limited evaluation without intravenous contrast. Mild bilateralcortical thinning. Normal appearance of the ureters. Retroperitoneum: No mass or adenopathy. Abdominal vasculature: Extensive atherosclerotic calcifications. Bowel/mesentery: Mild anasarca, most prominent in the presacral region.No obstruction or adenopathy. No mass or ascites. Mild circumferentialmural thickening of the rectum. Redundant sigmoid. Normal appendix. Abdominal wall: Mild anasarca. Small fat-containing paraumbilicalhernia. Pelvic nodes: No adenopathy. Pelvic organs: Urinary bladder is mildly distended. The urinary bladdercontents are more hyperattenuating than simple fluid (approximately 60Hounsfield units). Small prostate gland. Bones: Diffusely demineralized. Prominent degenerative changes of thespine. Mild degenerative changes of the hips, pubic symphysis, andsacroiliac joints. IMPRESSION: 1. Moderate right and small left pleural effusions with associatedcompressive atelectasis. Mild anasarca. 2. Cholelithiasis and choledocholithiasis without significant biliaryductal dilatation. 3. Other incidental findings as detailed above. -------- FINAL REPORT -------- Dictated By: Jay Leyva Dictated Date: 03/22/2025 11:00 ET Assigned Physician: Jay Leyva Reviewed and Electronically Signed By: Jay Leyva Signed Date: 03/22/2025 11:14 ET Workstation ID: [id number] Transcribed By: Self Edit Transcribed Date: 03/22/2025 11:09 ET Jani Turner MD [facility] CT PROCEDURES Final Res ult * (ABNORMAL) Urinalysis with reflex microscopic and culture (03/22/2025 6:37 AM EDT) Specific [place] Urine 1.016 1.003 - 1.030 LAB URINALYSIS - AUTOMATED METHOD 03/22/2025 7:48 AM EDT [facility] pH, Urine 5.5 5.0 - 8.0 pH LAB URINALYSIS - AUTOMATED METHOD 03/22/2025 7:48 AM [facility] Leukocytes, Urine Negative Negative LAB URINALYSIS - AUTOMATED METHOD 03/22/2025 7:48 AM [facility] Nitrite, Urine Negative Negative LAB URINALYSIS - AUTOMATED METHOD 03/22/2025 7:48 AM [facility] Protein, Urine 30(A) <=Trace mg/dL LAB URINALYSIS - AUTOMATED METHOD 03/22/2025 7:48 AM [facility] Glucose, Urine Negative Negative mg/dL LAB URINALYSIS - AUTOMATED METHOD 03/22/2025 7:48 AM [facility] Ketones, Urine Negative Negative mg/dL LAB URINALYSIS - AUTOMATED METHOD 03/22/2025 7:48 AM [facility] Urobilinogen , Urine 0.2 0.2 - 1.0 mg/dL LAB URINALYSIS - AUTOMATED METHOD 03/22/2025 7:48 AM [facility] Bilirubin, Urine Negative Negative LAB URINALYSIS - AUTOMATED METHOD 03/22/2025 7:48 AM [facility] Blood, Urine Negative Negative LAB URINALYSIS - AUTOMATED METHOD 03/22/2025 7:48 AM [facility] RBC, Urine 0.0 0 - 4 /HPF LAB URINALYSIS - AUTOMATED METHOD 03/22/2025 7:48 AM [facility] WBC, Urine 1.9 0 - 4 /HPF LAB URINALYSIS - AUTOMATED METHOD 03/22/2025 7:48 AM [facility] Squamous Epithelial, Urine 10 0 - 60 /LPF LAB URINALYSIS - AUTOMATED METHOD 03/22/2025 7:48 AM [facility] Non-Squamous Epithelial, Urine RARE RENAL EPI, RARE TRANSITIONAL EPI /LPF LAB URINALYSIS - AUTOMATED METHOD 03/22/2025 7:48 AM [facility] Bacteria, Urine Negative Negative /HPF LAB URINALYSIS - AUTOMATED METHOD 03/22/2025 7:48 AM EDT [facility] Hyaline Casts, Urine 8.4(H) 0 - 3 /LPF LAB URINALYSIS - AUTOMATED METHOD 03/22/2025 7:48 AM EDT [facility] Urine Urine specimen obtained by clean catch procedure / Unknown Non-blood Collection / Unknown 03/22/2025 6:37 AM EDT 03/22/2025 7:05 AM EDT us Ellen Love MD LAB URINE ORDERABLES Final Res ult Performing Organization Address [facility]/ZIP Co de Phone Number [facility] [address] [place] [address], [place] [phone] * Garcia urine culture tube (03/22/2025 6:37 AM EDT) Extra Tube Hold for add-ons. 03/22/2025 9:01 AM EDT [facility] Comment:Auto resulted. Urine Urine specimen obtained by clean catch procedure / Unknown Non-blood Collection / Unknown 03/22/2025 6:37 AM EDT 03/22/2025 7:05 AM EDT us Ellen Love MD LAB URINE ORDERABLES Final Res ult [facility] [address] [place] [address], [place] [phone] * Debridement Pressure Injury Left Heel (03/05/2025 11:00 AM EDT) Narrative Tatum De La Paz MD - 03/05/2025 11:00 AM EDT Tatum De La Paz MD 03/05/2025 1:19 PM Debridement Pressure Injury Left Heel Performed by: Tatum De La Paz MD Authorized by: Tatum De La Paz MD Associated wounds: Wound Pressure Injury 12/28/24 Heel Left Consent: Consent obtained: Verbal Consent given by: Patient Risks discussed: Yes Time out: Immediately prior to the procedure a time out was called Time out performed at: 03/05/2025 11:48 AM Debridement Details: Performed by: Physician Type: selective Pain control administration: topical anesthesia Severity of Tissue Pre Debridement: Fat layer exposed Severity of Tissue Post Debridement: Fat layer exposed Time taken: 03/05/2025 11:11 AM Length (cm): 1.5 Width (cm): 1.8 Depth (cm): 0.2 Area (cm^2): 2.7 Time taken: 03/05/2025 11:12 AM Length (cm): 1.5 Width (cm): 1.8 Depth (cm): 0.2 Percent Debrided (%): 100 Surface Area (cm^2): 2.7 Area Debrided (cm^2): 2.7 Volume (cm^3): 0.54 Devitalized tissue debrided: callus, fibrin and slough Devitalized tissue debrided comment: Devitalized skin Instrument: Blade and forceps Amount of bleeding: small Hemostasis obtained with: Pressure Procedural pain: 0 Post-procedural pain: 0 Response to treatment: Procedure was tolerated well us Tatum De La Paz MD IN CLINIC/BEDSIDE ORDERAB LES Final Result * Debridement Pressure Injury (cluster of 2) Right Heel (02/19/2025 10:15 AM EDT) Narrative Tatum De La Paz MD - 02/19/2025 10:15 AM EDT Tatum De La Paz MD 02/19/2025 12:42 PM Debridement Pressure Injury (cluster of 2) Right Heel Performed by: Tatum De La Paz MD Authorized by: Tatum De La Paz MD Associated wounds: Wound Pressure Injury 12/28/24 Heel Right Consent: Consent obtained: Verbal Consent given by: Patient Risks discussed: Yes Time out: Immediately prior to the procedure a time out was called Time out performed at: 02/19/2025 10:39 AM Debridement Details: Performed by: Physician Type: selective Pain control: Lidocaine 5% Pain control administration: topical anesthesia Severity of Tissue Pre Debridement: Fat layer exposed Severity of Tissue Post Debridement: Fat layer exposed Time taken: 02/19/2025 10:39 AM Length (cm): 3.5 (Cluster of 2) Width (cm): 1.5 Depth (cm): 0.1 Area (cm^2): 5.25 Time taken: 02/19/2025 10:40 AM Length (cm): 3.5 Width (cm): 1.5 Depth (cm): 0.1 Percent Debrided (%): 25 Surface Area (cm^2): 5.25 Area Debrided (cm^2): 1.31 Volume (cm^3): 0.53 Devitalized tissue debrided: callus, fibrin, necrotic debris and slough Instrument: Blade and forceps Amount of bleeding: small Hemostasis obtained with: Silver nitrate Procedural pain: 0 Post-procedural pain: 0 Response to treatment: Procedure was tolerated well us Tatum De La Paz MD IN CLINIC/BEDSIDE ORDERAB LES Final Result * Debridement Pressure Injury Left Heel (02/19/2025 10:15 AM EDT) Tatum Miller MD - 02/19/2025 10:15 AM EDT Tatum De La Paz MD 02/19/2025 12:42 PM Debridement Pressure Injury Left Heel Performed by: Tatum De La Paz MD Authorized by: Tatum De La Paz MD Associated wounds: Wound Pressure Injury 12/28/24 Heel Left Consent: Consent obtained: Verbal Consent given by: Patient Risks discussed: Yes Time out: Immediately prior to the procedure a time out was called Time out performed at: 02/19/2025 10:38 AM Debridement Details: Performed by: Physician Type: selective Pain control: Lidocaine 5% Pain control administration: topical anesthesia Severity of Tissue Pre Debridement: Fat layer exposed Severity of Tissue Post Debridement: Fat layer exposed Time taken: 02/19/2025 10:38 AM Length (cm): 1.5 Width (cm): 1.5 Depth (cm): 0.1 Area (cm^2): 2.25 Time taken: 02/19/2025 10:39 AM Length (cm): 1.5 Width (cm): 1.5 Depth (cm): 0.1 Percent Debrided (%): 100 Surface Area (cm^2): 2.25 Area Debrided (cm^2): 2.25 Volume (cm^3): 0.23 Devitalized tissue debrided: callus, fibrin, necrotic debris and slough Instrument: Blade and forceps Amount of bleeding: small Hemostasis obtained with: Pressure Procedural pain: 0 Post-procedural pain: 0 Response to treatment: Procedure was tolerated well us Tatum De La Paz MD IN CLINIC/BEDSIDE ORDERAB LES Final Result * SST tube (02/15/2025 11:48 AM EDT) Only the most recent of2 resultswithin the time period is included. Extra Tube Hold for add-ons. 02/15/2025 2:02 PM EDT [facility] Comment:Auto resulted. Blood Venous blood specimen / Unknown Venipuncture / Unknown 02/15/2025 11:48 AM EDT 02/15/2025 12:18 PM EDT us Lenin Ford MD LAB BLOOD ORDERABLES Final R esult Performing Organization Address City/[facility]/ZIP Co de Phone Number [facility] [address] [place] [address], [place] [phone] * Light blue tube (02/15/2025 11:48 AM EDT) [facility] Extra Tube Hold for add-ons. 02/15/2025 2:02 PM EDT [facility] Comment:Auto resulted. Blood Venous blood specimen / Unknown Venipuncture / Unknown 02/15/2025 11:48 AM EDT 02/15/2025 12:18 PM EDT us Lenin Ford MD LAB BLOOD ORDERABLES Final R esult [facility] [address] [place] [address], [place] [phone] * (ABNORMAL) Iron and TIBC (02/15/2025 11:48 AM EDT) Iron 24(L) 50 - 160 mcg/dL LAB CHEMISTRY METHOD 02/15/2025 2:09 PM EDT [facility] TIBC 275 250 - 450 mcg/dL LAB CHEMISTRY METHOD 02/15/2025 2:09 PM EDT [facility] Iron Saturation 9(L) 20 - 50 % LAB CHEMISTRY METHOD 02/15/2025 2:09 PM EDT [facility] Blood Venous blood specimen / Unknown Venipuncture / Unknown 02/15/2025 11:48 AM EDT 02/15/2025 12:18 PM EDT Lenin Ford MD LAB BLOOD ORDERABLES Final R esult Performing Organization Address [facility]/ZIP Co de Phone Number [facility] [address] [place] [address], [place] [phone] * Vitamin D 25 hydroxy (02/15/2025 11:48 AM EDT) Pathologist [facility] Vit D, 25-Hydroxy 34.8 30.0 - 80.0 ng/mL LAB CHEMISTRY METHOD 02/15/2025 2:41 PM EDT [facility] Blood Venous blood specimen / Unknown Venipuncture / Unknown 02/15/2025 11:48 AM EDT 02/15/2025 12:18 PM EDT Lenin Ford MD LAB BLOOD ORDERABLES Final R esult Performing Organization Address City/[facility]/ZIP Co de Phone Number [facility] [address] [place] [address], [place] [phone] * (ABNORMAL) Complete blood count (02/15/2025 11:48 AM EDT) Only the most recent of3 resultswithin the time period is included. WBC 6.6 4.8 - 10.8 K/mcL LAB HEMETOLOGY METHOD 02/15/2025 12:51 PM EDT [facility] RBC 3.00(L) 4.50 - 5.50 M/mcL LAB HEMETOLOGY METHOD 02/15/2025 12:51 PM [facility] Hemoglobin 8.3(L) 13.5 - 17.5 g/dL LAB HEMETOLOGY METHOD 02/15/2025 12:51 PM [facility] Hematocrit 27.1(L) 42.0 - 54.0 % LAB HEMETOLOGY METHOD 02/15/2025 12:51 PM [facility] MCV 90.0 79.0 - 98.0 FL LAB HEMETOLOGY METHOD 02/15/2025 12:51 PM [facility] MCH 27.6 27.0 - 32.0 pcg LAB HEMETOLOGY METHOD 02/15/2025 12:51 PM [facility] MCHC 30.6(L) 32.0 - 37.0 g/dL LAB HEMETOLOGY METHOD 02/15/2025 12:51 PM [facility] RDW 15.2(H) 11.0 - 15.0 % LAB HEMETOLOGY METHOD 02/15/2025 12:51 PM [facility] Platelets 207 130 - 400 K/mcL LAB HEMETOLOGY METHOD 02/15/2025 12:51 PM [facility] MPV 10.0 7.0 - 11.0 FL LAB HEMETOLOGY METHOD 02/15/2025 12:51 PM [facility] NRBC 0.0 <1.0 % LAB HEMETOLOGY METHOD 02/15/2025 12:51 PM [facility] NRBC Absolute 0.00 <0.10 K/mcL LAB HEMETOLOGY METHOD 02/15/2025 12:51 PM [facility] Blood Venous blood specimen / Unknown Venipuncture / Unknown 02/15/2025 11:48 AM EDT 02/15/2025 12:18 PM EDT Lenin Ford MD LAB BLOOD ORDERABLES Final R esult Performing Organization Address City/[facility]/ZIP Co de Phone Number [facility] [address] [place] [address], [place] [phone] * (ABNORMAL) Parathyroid hormone intact (02/15/2025 11:48 AM EDT) [facility] PTH 103.1(H) 18.5 - 88.0 pcg/mL LAB CHEMISTRY METHOD 02/15/2025 2:41 PM EDT [facility] Blood Venous blood specimen / Unknown Venipuncture / Unknown 02/15/2025 11:48 AM EDT 02/15/2025 12:18 PM EDT us Lenin Ford MD LAB BLOOD ORDERABLES Final R esult Performing Organization Address [facility] [[email or web address]] Co de Phone Number [facility] [address] [place] [address], [place] [phone] * (ABNORMAL) Folate (02/15/2025 11:48 AM EDT) [facility] Folate 19.0(H) 2.8 - 17.0 ng/ml LAB CHEMISTRY METHOD 02/15/2025 2:09 PM EDT [facility] Blood Venous blood specimen / Unknown Venipuncture / Unknown 02/15/2025 11:48 AM EDT 02/15/2025 12:18 PM EDT us Lenin Ford MD LAB BLOOD ORDERABLES Final R esult Performing Organization Address [facility]/ZIP Co de Phone Number [facility] [address] [place] [address], [place] [phone] * Ferritin (02/15/2025 11:48 AM EDT) [facility] Ferritin 128 26 - 388 ng/mL LAB CHEMISTRY METHOD 02/15/2025 1:47 PM EDT [facility] Blood Venous blood specimen / Unknown Venipuncture / Unknown 02/15/2025 11:48 AM EDT 02/15/2025 12:18 PM EDT Lenin Ford MD LAB BLOOD ORDERABLES Final R esult Performing Organization Address City/[facility]/ZIP Co de Phone Number [facility] [address] [place] [address], [place] [phone] * Vitamin B12 (02/15/2025 11:48 AM EDT) Pathologist [facility] Vitamin B-12 456 250 - 900 pcg/mL LAB CHEMISTRY METHOD 02/15/2025 2:09 PM EDT [facility] Blood Venous blood specimen / Unknown Venipuncture / Unknown 02/15/2025 11:48 AM EDT 02/15/2025 12:18 PM EDT Lenin Ford MD LAB BLOOD ORDERABLES Final R esult Performing Organization Address City/[facility] [[email or web address]] Co de Phone Number [facility] [address] [place] [address], [place] [phone] * Vascular US duplex lower extremity arteries bilateral (01/17/2025 8:09 PM EDT) Anatomical Region Laterality Modality Vascular, Abdomen Ultrasound 01/17/2025 8:42 PM EDT Impressions 01/17/2025 8:42 PM EDT Impression: 1. Bilateral common femoral arteries with biphasic flow suggesting there is an element of inflow disease. There is also likely stenosis in the left common femoral artery. 2. Elevated velocities in the distal right popliteal artery concerning for stenosis. 3. No flow seen in the right posterior tibial artery. Biphasic flow in the right anterior tibial artery. 4. Elevated velocities in the left popliteal artery and left anterior tibial artery concerning for stenoses. This document has been electronically signed by: Adria Vogel MD on 01/17/2025 20:42:48 Narrative 01/17/2025 8:42 PM EDT INDICATION: peripheral vascular disease Bilateral lower extremity arterial duplex ultrasound Comparison: None . Findings: Right leg: In the right common femoral artery there is biphasic flow with normal velocity. Right profunda is patent with monophasic flow. Right SFA demonstrates biphasic flow, with normal velocities. Calcified plaque noted within the right SFA. Right popliteal artery with biphasic flow. There are elevated velocities within the distal right popliteal artery measuring 367 cm/sec. No flow seen within the right posterior tibial artery. Biphasic flow seen within the right anterior tibial artery. Left leg: Biphasic flow seen within the left common femoral artery with slightly elevated velocities measuring 172 cm/sec. Profunda demonstrates biphasic flow. The left popliteal artery demonstrates monophasic flow in the mid portion, with elevated velocities measuring up to 202 cm/sec. No flow seen within the proximal posterior tibial artery, however there is biphasic flow seen in the mid and distal portions. Anterior tibial artery demonstrates flow that appears predominantly monophasic. Elevated velocities are present within the proximal anterior tibial artery measuring 279 cm/sec. Procedure Note Adria Vogel MD - 01/17/2025 INDICATION: peripheral vascular disease Bilateral lower extremity arterial duplex ultrasound Comparison: None . Findings: Right leg: In the right common femoral artery there is biphasic flowwith normal velocity. Right profunda is patent with monophasic flow. Right SFA demonstrates biphasic flow, with normal velocities. Calcified plaque noted within the right SFA. Right popliteal artery with biphasic flow. There are elevated velocities within the distal right popliteal artery measuring 367 cm/sec. No flow seen within the right posterior tibial artery. Biphasic flow seen within the right anterior tibial artery. Left leg: Biphasic flow seen within the left common femoral artery with slightly elevated velocities measuring 172 cm/sec. Profunda demonstrates biphasic flow. The left popliteal artery demonstrates monophasic flow in the mid portion, with elevated velocities measuring up to 202 cm/sec. No flow seen within the proximal posterior tibial artery, however thereis biphasic flow seen in the mid and distal portions. Anterior tibial artery demonstrates flow that appears predominantly monophasic. Elevated velocities are present within the proximal anterior tibial artery measuring 279 cm/sec. IMPRESSION: Impression: 1. Bilateral common femoral arteries with biphasic flow suggesting there is an element of inflow disease. There is also likely stenosis in theleft common femoral artery. 2. Elevated velocities in the distal right popliteal artery concerningfor stenosis. 3. No flow seen in the right posterior tibial artery. Biphasic flow inthe right anterior tibial artery. 4. Elevated velocities in the left popliteal artery and left anterior tibial artery concerning for stenoses. This document has been electronically signed by: Adria Vogel MD on 01/17/2025 20:42:48 Nicky HERNANDEZ CV VASCULAR PROCEDURES Final R esult * (ABNORMAL) Hemoglobin and hematocrit (01/17/2025 1:35 PM EDT) Hemoglobin 8.6(L) 13.5 - 17.5 g/dL LAB HEMETOLOGY METHOD 01/17/2025 2:12 PM EDT [facility] Hematocrit 27.6(L) 42.0 - 54.0 % LAB HEMETOLOGY METHOD 01/17/2025 2:12 PM EDT [facility] Blood Venous blood specimen / Unknown Venipuncture / Unknown 01/17/2025 1:35 PM EDT 01/17/2025 1:45 PM EDT Colby Diaz MD LAB BLOOD ORDERABLES Final Re sult [facility] [address] [place] [address], * ECG-Annotated (01/17/2025) Provider Onbase MD ECG ORDERABLES Final Result * MR Brain wo Contrast (01/16/2025 7:27 PM EDT) Anatomical Region Laterality Modality Head and Neck Magnetic Resonan ce 01/16/2025 8:07 PM EDT Impressions 01/16/2025 8:07 PM EDT Impression: 1. Exam limited by susceptibility artifact as described above. 2. No gross acute intracranial abnormalities. This document has been electronically signed by: Luis Fernando Burton MD on 01/16/2025 20:07:13 Narrative 01/16/2025 8:07 PM EDT INDICATION: Neuro deficit, acute, stroke suspected Exam: Nonenhanced MRI brain. Comparison: None. Findings: Exam is somewhat limited by significant susceptibility artifact overlying the face, possibly related to dental hardware, with more significant artifact resulting on diffusion-weighted and susceptibility weighted sequences. There is no cerebral edema or mass effect. White matter reveals minimal punctate scattered foci of T2 hyperintensity common nonspecific although likely sequela of minimal chronic microangiopathic disease.. Diffusion weighted imaging reveals no definitive restricted diffusion or MR evidence of acute ischemia. Susceptibility weighted imaging reveals susceptibility artifact as described above. No other susceptibility artifact or evidence of intracranial hemorrhage. No sellar or parasellar lesions. Ventricular size and configuration appear proportional to the degree of involution. Moderate involutional changes are present. Cerebral cisterns are preserved. No significant signal abnormality seen within the paranasal sinuses or mastoid air cells. Preserved flow signal voids are present within visualized intracranial vasculature. Procedure Note Luis Fernando Burton MD - 01/16/2025 INDICATION: Neuro deficit, acute, stroke suspected Exam: Nonenhanced MRI brain. Comparison: None. Findings: Exam is somewhat limited by significant susceptibilityartifact overlying the face, possibly related to dental hardware, with more significant artifact resulting on diffusion-weighted and susceptibility weighted sequences. There is no cerebral edema or mass effect. White matter reveals minimal punctate scattered foci of T2 hyperintensitycommon nonspecific although likely sequela of minimal chronic microangiopathic disease.. Diffusion weighted imaging reveals no definitive restricted diffusion or MR evidence of acute ischemia. Susceptibility weighted imaging reveals susceptibility artifact as described above. No other susceptibility artifact or evidence of intracranial hemorrhage. Nosellar or parasellar lesions. Ventricular size and configuration appear proportional to the degree of involution. Moderate involutional changes are present. Cerebral cisterns are preserved. No significant signal abnormality seen within the paranasal sinuses or mastoid air cells. Preserved flow signal voids are present within visualized intracranial vasculature. IMPRESSION: Impression: 1. Exam limited by susceptibility artifact as described above. 2. No gross acute intracranial abnormalities. This document has been electronically signed by: Luis Fernando Burton MD on 01/16/2025 20:07:13 us Nannette HERNANDEZ IMG MRI PROCEDURES Final Result * Transfuse RBC (01/16/2025 6:17 PM EDT) us Nannette HERNANDEZ BLOOD TRANSFUSION ORDERABLES Fin al Result * Type and screen (01/16/2025 12:33 PM EDT) Pathologist [facility] ABO Group A 01/16/2025 1:25 PM EDT [facility] Rh Type Positive 01/16/2025 1:25 PM EDT [facility] Antibody Screen Negative 01/16/2025 1:25 PM EDT [facility] Blood Venous blood specimen / Unknown Venipuncture / Unknown 01/16/2025 12:33 PM EDT 01/16/2025 12:34 PM EDT Lorrie HERNANDEZ LAB BLOOD BANK TEST ORDERABLE S Final Result [facility] [address] [place] [address], [place] [phone] * Prepare RBC: 1 Units (01/16/2025 10:13 AM EDT) Pathologist [facility] Product Code [id number] 01/16/2025 3:08 PM EDT [facility] Unit Number [id number] 01/17/20 3:08 PM EDT [facility] Crossmatch Compatible 01/16/2025 1:31 PM EDT [facility] Dispense Status Transfused 01/16/2025 3:08 PM EDT [facility] Unit ABO Rh APOS 01/16/2025 3:08 PM EDT [facility] Unit Expiration Date Time [id number] 01/16/2025 3:08 PM EDT [facility] Unit Blood Type 6200 01/16/2025 3:08 PM EDT [facility] Blood Venous blood specimen / Unknown 01/16/2025 10:13 AM EDT 01/16/2025 12:34 PM EDT us Lorrie HERNANDEZ BLOOD BANK PRODUCT ORDERABLES Final Result Performing Organization Address [facility]/ZIP Co de Phone Number [facility] [address] [place] [address], [place] [phone] * Activated partial thromboplastin time (01/16/2025 8:47 AM EDT) aPTT 35.9 24.1 - 39.3 sec LAB COAGULATION METHOD 01/16/2025 9:25 AM EDT [facility] Blood Venous blood specimen / Unknown Venipuncture / Unknown 01/16/2025 8:47 AM EDT 01/16/2025 8:56 AM EDT us Lorrie HERNANDEZ LAB BLOOD ORDERABLES Final Re sult Performing Organization Address [facility] [[email or web address]] Co de Phone Number [facility] [address] [place] [address], [place] [phone] * (ABNORMAL) Prothrombin time with INR (01/16/2025 8:47 AM EDT) Protime 16.8(H) 10.6 - 13.9 sec LAB COAGULATION METHOD 01/16/2025 9:25 AM EDT [facility] INR 1.3 LAB COAGULATION METHOD 01/16/2025 9:25 AM EDT [facility] Blood Venous blood specimen / Unknown Venipuncture / Unknown 01/16/2025 8:47 AM EDT 01/16/2025 8:56 AM EDT us Lorrie HERNANDEZ LAB BLOOD ORDERABLES Final Re sult Performing Organization Address [facility]/ZIP Co de Phone Number [facility] [address] [place] [address], * ECG 12 lead (01/16/2025 8:41 AM EDT) Ventricular Rate ECG 70 BPM GEMUSE QRS Duration 116 ms GEMUSE Q-T Interval 412 ms GEMUSE QTc 444 ms GEMUSE R [place] 5 degrees GEMUSE T [place] -104 degrees GEMUSE ECG Interpretation Atrial fibrillation Non-specific intra-ventricul ar conduction block Abnormal ECG When compared with ECG of 21-DEC-2024 15:41, Non-specific intra-ventricul ar conduction block is present Confirmed by Isreal XAVIER YUFENG ([id number]) on 01/16/2025 10:06:55 AM GEMUSE 01/16/2025 8:41 AM EDT 01/16/2025 10:06 AM EDT Lorrie HERNANDEZ ECG ORDERABLES Final Result Performing Organization Address [facility] [[email or web address]] Co de Phone Number GEMUSE * CT Head Stroke wo Contrast (01/16/2025 8:37 AM EDT) Anatomical Region Laterality Modality Head and Neck Computed Tomogra phy 01/16/2025 8:41 AM EDT Impressions 01/16/2025 8:45 AM EDT No acute intracranial abnormality. Findings communicated to Lorrie HERNANDEZ via secure text at 8:43 AM 01/16/2025 -------- FINAL REPORT -------- Dictated By: SENTHIL LOPEZ Dictated Date: 01/16/2025 08:41 ET Assigned Physician: SENTHIL LOPEZ Reviewed and Electronically Signed By: SENTHIL LOPEZ Signed Date: 01/16/2025 08:45 ET Workstation ID: [id number] Transcribed By: Self Edit Transcribed Date: 01/16/2025 08:41 ET Narrative 01/16/2025 8:45 AM EDT PROCEDURE: HEAD CT INDICATION: Slurred speech, right hand weakness TECHNIQUE: CT of the head without intravenous contrast. Multiplanar reformats. The examination was performed utilizing dose reduction techniques. Total DLP 809 COMPARISON: No priors available. FINDINGS: No acute territorial infarct, mass effect, or intracranial hemorrhage. Mild scattered periventricular and subcortical white matter hypodensities are most likely related to chronic small vessel ischemic change. Diffuse cerebral volume loss with prominence of the ventricles, sulci, and cisterns. No hydrocephalus. Visualized paranasal sinuses and mastoid air cells are clear. No scalp hematoma or skull fracture. Bilateral lens implants. Procedure Note Senthil Lopez MD - 01/16/2025 PROCEDURE: HEAD CT INDICATION: Slurred speech, right hand weakness TECHNIQUE: CT of the head without intravenous contrast. Multiplanarreformats. The examination was performed utilizing dose reductiontechniques. Total DLP 809 COMPARISON: No priors available. FINDINGS: No acute territorial infarct, mass effect, or intracranial hemorrhage. Mild scattered periventricular and subcortical white matter hypodensitiesare most likely related to chronic small vessel ischemic change. Diffuse cerebral volume loss with prominence of the ventricles, sulci, andcisterns. No hydrocephalus. Visualized paranasal sinuses and mastoid air cells are clear. No scalp hematoma or skull fracture. Bilateral lens implants. IMPRESSION: No acute intracranial abnormality. Findings communicated to Lorrie HERNANDEZ via secure text at 8:43 AM01/16/2025 -------- FINAL REPORT -------- Dictated By: SENTHIL LOPEZ Dictated Date: 01/16/2025 08:41 ET Assigned Physician: SENTHIL LOPEZ Reviewed and Electronically Signed By: SENTHIL LOPEZ Signed Date: 01/16/2025 08:45 ET Workstation ID: [id number] Transcribed By: Self Edit Transcribed Date: 01/16/2025 08:41 ET Lorrie HERNANDEZ IMG CT PROCEDURES Final Resul t * CT Angio Head/Neck Stroke wo and/or w Contrast (01/16/2025 8:37 AM EDT) Anatomical Region Laterality Modality Head and Neck Computed Tomogra phy 01/16/2025 8:45 AM EDT Impressions 01/16/2025 8:51 AM EDT No significant stenosis or occlusion in the cervical arterial vasculature. No intracranial large vessel occlusion. 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 Patent anterior intracranial arterial vasculature. -------- FINAL REPORT -------- Dictated By: SENTHIL LOPEZ Dictated Date: 01/16/2025 08:45 ET Assigned Physician: SENTHIL LOPEZ Reviewed and Electronically Signed By: SENTHIL LOPEZ Signed Date: 01/16/2025 08:51 ET Workstation ID: [id number] Transcribed By: Self Edit Transcribed Date: 01/16/2025 08:45 ET Narrative 01/16/2025 8:51 AM EDT PROCEDURE: Head and neck CTA INDICATION: Slurred speech, right hand weakness TECHNIQUE: CTA of the head and neck with intravenous contrast. Multiplanar reformats. The examination was performed utilizing dose reduction techniques.3-D or MIP images were produced with postprocessing on an independent computer workstation. 90 mL [id number]-370 injected intravenously without complication. Total DLP 2859. COMPARISON: No priors available. FINDINGS: CTA Neck: There is a left-sided aortic arch. Major branching arteries arising from the aortic arch are patent. Common carotid and internal carotid arteries are patent in the neck. Cervical vertebral arteries are patent. No dissection. Right greater than left pleural effusions with pulmonary edema noted at the lung apices. Median sternotomy. Degenerative changes seen throughout the cervical spine. Soft tissues of the neck are normal. CTA Head: Intracranial portions of the internal carotid arteries are patent. M1 and A1 segments are patent. Distal middle cerebral and anterior cerebral arteries are patent. The intracranial vertebral arteries and basilar artery are patent. Superior cerebellar arteries are patent. Severe stenosis at the proximal left P2 segment with preserved contrast opacification of the more distal portions of the left [employer]. Moderate stenosis at the proximal right P2 segment with preserved contrast opacification of the more distal portions of the vessel. Major dural venous sinuses opacify normally with contrast. No intracranial aneurysm or vascular malformation. Procedure Note Senthil Lopez MD - 01/16/2025 PROCEDURE: Head and neck CTA INDICATION: Slurred speech, right hand weakness TECHNIQUE: CTA of the head and neck with intravenous contrast. Multiplanarreformats. The examination was performed utilizing dose reductiontechniques.3-D or MIP images were produced with postprocessing on anindependent computer workstation. 90 mL ISOVUE-370 injected intravenouslywithout complication. Total DLP 2859. COMPARISON: No priors available. FINDINGS: CTA Neck: There is a left-sided aortic arch. Major branching arteries arising from the aortic arch are patent. Commoncarotid and internal carotid arteries are patent in the neck. Cervicalvertebral arteries are patent. No dissection. Right greater than left pleural effusions with pulmonary edema noted atthe lung apices. Median sternotomy. Degenerative changes seen throughoutthe cervical spine. Soft tissues of the neck are normal. CTA Head: Intracranial portions of the internal carotid arteries are patent. M1 andA1 segments are patent. Distal middle cerebral and anterior cerebralarteries are patent. The intracranial vertebral arteries and basilar artery are patent.Superior cerebellar arteries are patent. Severe stenosis at the proximalleft P2 segment with preserved contrast opacification of the more distalportions of the left [employer]. Moderate stenosis at the proximal right [id number] with preserved contrast opacification of the more distal portionsof the vessel. Major dural venous sinuses opacify normally with contrast. No intracranial aneurysm or vascular malformation. IMPRESSION: No significant stenosis or occlusion in the cervical arterialvasculature. No intracranial large vessel occlusion. Severe left and moderate right stenosis at the proximal posterior cerebralarteries related to intracranial atherosclerosis. Patent anteriorintracranial arterial vasculature. -------- FINAL REPORT -------- Dictated By: SENTHIL LOPEZ Dictated Date: 01/16/2025 08:45 ET Assigned Physician: SENTHIL LOPEZ Reviewed and Electronically Signed By: SENTHIL LOPEZ Signed Date: 01/16/2025 08:51 ET Workstation ID: [id number] Transcribed By: Self Edit Transcribed Date: 01/16/2025 08:45 ET Lorrie HERNANDEZ IMG CT PROCEDURES Final Resul t * (ABNORMAL) Hemoglobin A1c (01/01/2025 10:39 AM EDT) Hemoglobin A1C 8.3(H) <6.5 % LAB CHEMISTRY METHOD 01/01/2025 9:57 PM EDT [facility] Mean Bld Glu Estim. 192 mg/dL LAB CHEMISTRY METHOD 01/01/2025 9:57 PM EDT [facility] Blood Venous blood specimen / Unknown Venipuncture / Unknown 01/01/2025 10:39 AM EDT 01/01/2025 12:15 PM EDT Lenin Ford MD LAB BLOOD ORDERABLES Final R esult [facility] [address] [place] [address], [place] [phone] * Lipid panel (02/10/2024) LDL/HDL Ratio 2 0 - 4 Triglycerides 63 0 - 150 mg/dL Cholesterol 121 0 - 200 mg/dL HDL 61 >=40 mg/dL LDL Cholesterol 48 0 - 100 mg/dL Blood Venous blood specimen / Unknown Historical Provider LAB BLOOD ORDERABLES Victoria l Result from Last 3 Months or Most Recently Relevant to Health Maintenance Additional Health Concerns Active Problems Noted Date Diagnosed Date Impaired Tissue 02/19/2025 Education needed on impact of smoking on wound 0 02/19/2025 Education needed related to ulceration/compromised skin integrity. 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 Do not modify or discontinue any currently active code status orders. * Full Code - Default Date Activated Date Inactivated Comments 01/16/2025 12:33 PM 01/18/2025 5:39 PM This is order is used when code status has not been discussed with the patient, or code status is otherwise unknown/unconfirmed To update the patient's code status, place a code status order. Do not modify or discontinue any currently active code status orders. * Full Code - Confirmed Date Activated Date Inactivated Comments 12/21/2024 10:36 PM 12/30/2024 4:[address] atus was ascertained in the following way: Code status discussion: discussion with patient To update the patient's code status, place a code status order. Do not modify or discontinue any currently active code status orders. * Full Code - Default Date Activated Date Inactivated Comments 12/21/2024 6:56 PM 12/21/2024 10:36 PM This is order is used when code status has not been discussed with the patient, or code status is otherwise unknown/unconfirmed To update the patient's code status, place a code status order. Do not modify or discontinue any currently active code status orders. Healthcare Agents on File Name Relationship Healthcare Agent Relationshi p Communication Olga Lidia kecki Spouse Health Care Agent Barbara Phelps Relative First Fitz borja Health Care Agent Care Teams Policy Officer Relationship Specialty Start Date End Date Turner Booker MD [address] [place] [id number] PCP - General Internal Medicine 09/11/24
--- OUTSIDE RECORDS SUMMARY | 2025-04-04 11:32 | XMS_ITS | Encounter Summary ---
Author Organization [facility] Address [address] [place] [address] Care Team Providers Care Electrical Electronics Engineer Name Role Phone Turner Booker MD Primary Care Provider Unavaila Chayo Quiroga MD Unavailable Sachi Mejia DNP Unavailable [phone] Encounter Details Date Type Department Care Team Description 01/05/2022 [facility] [address] [place] [address] Abstract, Provider Social History Tobacco Use Types [...] on filedocumented in this encounter Care Teams Electrical Electronics Engineer Relationship Specialty Start Date End Date Turner Booker MD PCP - General Internal Medicine 01/04/18 Chayo Xavier MD Specialist Cardiology 08/23/20 Sachi Mejia DNP Specialist Cardiology 08/23/20 documented as of this encounter
--- OUTSIDE RECORDS SUMMARY | 2025-04-04 11:33 | XMS_ITS | Patient Health Record ---
Author Organization [facility] Address [address] [place] [address] Care Team Providers Care Supervisor Drying And Softening Name Role Phone Turner Booker Primary Care Provider Cathy Lewis Unavailable [phone] Allergies No Known Allergies Results Component Value [...] Problem Acquired hammer toe of right foot (966219407574964 5) Other hammer toe(s) (acquired), right foot (M20.41) Active confirmed Problem Acquired hammer toe of left foot (547237969530234 3) Other hammer toe(s) (acquired), left foot (M20.42) Active confirmed Problem Polyneuropathy due to diabetes mellitus type I (928828036) Type 1 diabetes mellitus with diabetic polyneuropathy (E10.42) Active confirmed Problem Polyneuropathy due to type 2 diabetes mellitus (058952912) Type 2 diabetes mellitus with diabetic polyneuropathy (E11.42) Active confirmed Problem 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 Response to treatment Vital Signs Blood pressure diastolic 60 mm Hg 11/30/2024 Height 5 ft 10 in in 11/30/2024 Blood pressure systolic 135 mm Hg 11/30/2024 Weight 237 lbs 11/30/2024 BMI 34 kg/m2 11/30/2024 Encounters Encounter Location Date Provider Diagnosis [facility] [address] [address] 05/22/2024 Cathy Perica Type 2 diabetes mellitus with diabetic polyneuropathy E11.42 ; Ingrown nail L60.0 and Tinea unguium B35.[address] [address] 05/30/2024 Cathy Brown Ingrown nail L60.0 a nd Type 2 diabetes mellitus with diabetic polyneuropathy E11.[address] [address] 06/12/2024 Cathy Brown Neuropathic ulcer of left foot with fat layer exposed L97.522 and Type 2 diabetes mellitus with diabetic polyneuropathy E11.[address] [address] 07/24/2024 Cathy Kevin Type 2 diabetes mellitus with diabetic polyneuropathy E11.42 and Tinea unguium B35.[address] [address] 09/25/2024 Cathy Dawsona Type 2 diabetes mellitus with diabetic polyneuropathy E11.42 ; Xerosis of skin L85.3 and Tinea unguium B35.[address] [address] 11/30/2024 Cathy Kevin Type 2 diabetes mellitus with diabetic polyneuropathy E11.42 ; Xerosis of skin L85.3 and Tinea unguium B35.[address] [address] 05/31/2024 Cathy Perica [address] [address] 11/30/2024 Cathy Perica [address] [address] 02/08/2025 Cathy Brown Assessments Encounter Date Diagnosis [...] Treatment Pending Test Test Name Order Date [id number] NAIL, 6 OR MORE 05/12/2021 26257-VYFZZWG NAIL, 6 OR MORE 07/28/2021 16512-HMMBJFP NAIL, 6 OR MORE 07/20/2022 83696-HVGUGLH NAIL, 6 OR MORE 07/26/2023 29372-Pfjttunh Plate 07/26/2023 17896 I&D ABSCESS- SIMPLE,SINGLE 022 28630-OPAL SKIN LESIONS, OVER 4 07/26/20 23 08180-MWRX SKIN LESIONS, OVER 4 07/20/20 22 10813-BJDF SKIN LESIONS, OVER 4 07/28/20 21 08138-DDGZ SKIN LESIONS, OVER 4 05/12/20 21 Next Appt Details Provider Name:Cathy marcial, 04/19/2025 01:00:00 PM, [address] [place] [address], [place], [address], Insurance Providers Payer Name Payer Address Payer Phone Subscriber Number Group Number Insured Name Patient Relationship to Insured Coverage Start Date Coverage End Date Medicare [employer] [address] [place] [address] [id number] Edwardo Gallagher Self - patient is the insured 0 [facility] [employer] Preferred [address] [place] [address] [id number] Edwardo Gallagher Self - patient is the insured 1 Medical (General) History Medical History History ICD Code Arthritis Cataracts Chicken pox Diabetes mellitus Heart disease High blood pressure Joint implants/screws Scarlet fever Surgical History Surgery Date(Month/Year) 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
--- OUTSIDE RECORDS SUMMARY | 2025-04-04 11:33 | XMS_ITS | Clinical Summary ---
Author Organization [facility] Address [address] [place] [address] Phone Care Team Providers Care Skeins Yarn Examiner Name Role Phone Turner Booker MD Primary Care Provider [phone] Allergies No known active allergies Medications albuterol [...] age to complete this topic Insurance Medicare [facility] Medicare [facility] Care Teams Skeins Yarn Examiner Relationship Specialty Start Date End Date Turner Booker MD [address] [place] [address] [place] [id number] PCP - General Internal Medicine 02/03/22
== END 2025-04-04 11:04 | disposition home or self-care (01) ==
LOC: HO.HKAS 10:19
PROVIDERS: PCP Internal Medicine; Visit Provider Internal Medicine Hypertension Specialist
DX: E11.22 Type 2 diabetes mellitus with diabetic chronic kidney disease (principal); N18.4 Chronic kidney disease, stage 4 (severe); N18.9 Chronic kidney disease, unspecified; D63.1 Anemia in chronic kidney disease; I12.9 Hypertensive chronic kidney disease with stage 1 through stage 4 chronic kidney disease, or unspecified chronic kidney disease; E87.5 Hyperkalemia
CPT/HCPCS: 99214

== ENCOUNTER → 2025-04-04 10:19 | Outpatient (BNVA) | payer MEDICARE, SELFPAY | PROVIDERS: PCP Internal Medicine; Visit Provider Internal Medicine Hypertension Specialist | DX: I10 Essential (primary) hypertension (principal); E11.22 Type 2 diabetes mellitus with diabetic chronic kidney disease; N18.4 Chronic kidney disease, stage 4 (severe); D63.1 Anemia in chronic kidney disease; E87.5 Hyperkalemia | CPT/HCPCS: 99212 ==